=== PATIENT | male | born 1970 | race American Indian/Alaskan Native ===

== ENCOUNTER 2019-02-19 07:23 | Emergency (ER) | payer SELFPAY ==
[2019-02-19] MEDS ORDERED: HYDROcodone/ACETAMINOPHEN 5-325 MG TAB PO ONE (08:46)
--- NOTE | 2019-02-19 08:48 | Emergency Department Report ---
Abscess Boil HPI - HPI Chief Complaint: Skin/Abscess/Foreign Body Stated Complaint: BOIL ON THIGH/SWELLING/PAIN Time Seen by Provider: 02/19/19 07:54 Duration: 2 Days Location: Lower Extremity (left medial thigh) Severity: Mild History: Yes Fever, Yes Pain, Yes Purulent Drainage, No Numbness, No Foreign Body, No Previous History, No Insect Bite HPI: This is a 48-year-old -[place] male who presents to the emergency room with redness, warmth, swelling to left medial thigh. Patient reports an abscess for 2 days which is drained and swelling improved. Patient states after abscess drained he noticed redness that was spreading to the left medial upper thigh that is tender to touch. Patient states he's taken NSAIDs with minimal improvement of pain. Home Medications: Previous Rx's Medication Instructions Recorded Last Taken Type Ibuprofen [Motrin 800 MG tab] 800 mg PO Q8HR PRN #30 tablet 02/19/19 Unknown Rx cephALEXin [Keflex] 500 mg PO Q6HR #28 capsule 02/19/19 Unknown Rx Allergies/Adverse Reactions: Allergies Allergy/AdvReac Type Severity Reaction Status Date / Time No Known Allergies Allergy Unverified 02/19/19 07:26 ED Review of Systems ROS: Stated complaint: BOIL ON THIGH/SWELLING/PAIN Other details as noted in HPI Constitutional: fever. denies: chills Respiratory: denies: cough, shortness of breath, wheezing Cardiovascular: denies: chest pain, palpitations Gastrointestinal: denies: abdominal pain, nausea, diarrhea Skin: lesions (abscess to left medial thigh), change in color (erythematous area to the left upper medial thigh). denies: rash Neurological: denies: headache, weakness, paresthesias Psychiatric: denies: anxiety, depression ED Past Medical Hx - Past Medical History Previous Medical History?: No - Surgical History Past Surgical History?: No - Social History Smoking Status: Never Smoker Substance Use Type: None - Medications Home Medications: Home Medications Medication Instructions Recorded Confirmed Last Taken Type Ibuprofen [Motrin 800 MG tab] 800 mg PO Q8HR PRN #30 tablet 02/19/19 Unknown Rx cephALEXin [Keflex] 500 mg PO Q6HR #28 capsule 02/19/19 Unknown Rx ED Abscess Boil Physical Exam - Exam General: Vital signs noted. No distress. Alert and acting appropriately. Front/Back of Body, Lg (Color): 1 - Half a centimeter nonfluctuant nodule to the left medial proximal femur, surrounding cellulitis 3-4 cm, warmth to touch, TTP, no drainage Size: 1 cm (half a centimeter) Exam: Yes Tenderness, Yes Surrounding Cellulites/Erythema, Yes Normal Neurologic Exam, Yes Normal Circulation, No Fluctuance, No Lymphangitis, No Crepitation, No Heart Murmur ED Course Vital Signs 02/19/19 07:31 Temperature 100 F H Pulse Rate 125 H Respiratory 20 Rate Blood Pressure 147/80 O2 Sat by Pulse 100 Oximetry Vital Signs 02/19/19 02/19/19 07:31 08:54 Temperature 100 F H Pulse Rate 125 H 94 H Respiratory 20 18 Rate Blood Pressure 147/80 O2 Sat by Pulse 100 99 Oximetry Critical care attestation.: If time is entered above; I have spent that time in minutes in the direct care of this critically ill patient, excluding procedure time. ED Medical Decision Making - Medical Decision Making This patient presents with initial presentation of local erythema, warmth, swelling to left proximal medial femur concerning for cellulitis. Sensitivity/pain to light touch around the erythematous area. No lymphangitic spread visible and no fluid pockets or fluctuance concerning for abscess noted. This area is completely drained abscess which at this time does not require I&d. Low concerns for osteomyelitis or DVT. No immune compromise, bullae, pain out of proportion, or rapid progression concerns for necrotizing fasciitis. Erythema outlined. Start Cephalexin and ibuprofen. No evidence of serious bacterial illness requiring admission for IV antibiotics. Nontoxic appearing, VSS. Low risk for treatment failure based on history. Will discharge home with PO antibiotics and return precautions discussed at bedside. ED Disposition Clinical Impression: Cellulitis and abscess of left lower extremity Disposition: TO HOME OR SELFCARE Is pt being admited?: No Condition: Stable Instructions: Cellulitis (ED) Additional Instructions: Complete antibiotics as prescribed. Take pain medication every 8 hours as needed for pain. Monitor redness if spreading follow up with primary care doctor or return to the ER promptly. Follow up with her primary care doctor from the list provided below for wound reevaluation in 3 days. Prescriptions: cephALEXin [Keflex] 500 mg PO Q6HR #28 capsule Ibuprofen [Motrin 800 MG tab] 800 mg PO Q8HR PRN #30 tablet PRN Reason: Pain , Severe (7-10) Referrals: VERONA INGRAM MD [Staff Physician] - 3-5 Days FLORA DUPREE MD [Staff Physician] - 3-5 Days [facility] [Outside] - 3-5 Days [facility] [Outside] - 3-5 Days Forms: Work/School Release Form(ED) Time of Disposition: 09:46
[2019-02-19 10:18] VITALS: BP 140/80
== END 2019-02-19 10:17 | disposition home or self-care (01) ==
LOC: ED 07:23
DX: L02.416 Cutaneous abscess of left lower limb (principal); L03.116 Cellulitis of left lower limb; Z79.899 Other long term (current) drug therapy
CPT/HCPCS: 99282

== ENCOUNTER 2019-02-22 09:10 | Inpatient (IN) | payer OTHER ==
[2019-02-22] MEDS ORDERED: MORPHINE 2 MG/1 ML INJ IV ONE (12:02)
--- NOTE | 2019-02-22 12:03 | Emergency Department Report ---
- General Chief Complaint: Skin/Abscess/Foreign Body Stated Complaint: LFT LEG ABCESS/PAIN Time Seen by Provider: 02/22/19 11:41 Source: patient Mode of arrival: Ambulatory Limitations: No Limitations - History of Present Illness Initial Comments: This is a 48-year-old -[place] male who presents to the emergency room with worsening redness and pain to the left medial thigh. Patient states he was seen in the emergency room 3 days ago was started on antibiotics with no i mprovement of symptoms. Patient states initially he had a small abscess that grew drained 2 left medial thigh. Patient states he is taking antibiotics as prescribed with worsening symptoms. He reports pain currently is 10 out of 10 on pain scale. He denies fever, chills, weakness, numbness or tingling. Onset/Timin -: days(s) Extremity Location: Left: Thigh Place: home Associated Symptoms: pain Treatments Prior to Arrival: NSAIDS, other (antibiotics) - Related Data Previous Rx's Medication Instructions Recorded Last Taken Type Ibuprofen [Motrin 800 MG tab] 800 mg PO Q8HR PRN #30 tablet 02/19/19 02/22/19 08:00 Rx 800 mg cephALEXin [Keflex] 500 mg PO Q6HR #28 capsule 02/19/19 02/22/19 08:00 Rx 500 mg Allergies Allergy/AdvReac Type Severity Reaction Status Date / Time No Known Allergies Allergy Unverified 02/19/19 07:26 ED Review of Systems ROS: Stated complaint: LFT LEG ABCESS/PAIN Other details as noted in HPI Constitutional: denies: chills, fever Respiratory: denies: cough, shortness of breath, wheezing Cardiovascular: denies: chest pain, palpitations Gastrointestinal: denies: abdominal pain, nausea, diarrhea Skin: other (worsening cellulitis left medial thigh). denies: rash Neurological: denies: headache, weakness, paresthesias Psychiatric: denies: anxiety, depression ED Past Medical Hx - Past Medical History Previous Medical History?: No - Surgical History Past Surgical History?: No - Social History Smoking Status: Never Smoker Substance Use Type: None - Medications Home Medications: Home Medications Medication Instructions Recorded Confirmed Last Taken Type Ibuprofen [Motrin 800 MG tab] 800 mg PO Q8HR PRN #30 tablet 02/19/19 02/22/19 08:00 Rx 800 mg cephALEXin [Keflex] 500 mg PO Q6HR #28 capsule 02/19/19 02/22/19 02/22/19 08:00 Rx 500 mg ED Physical Exam - General Limitations: No Limitations General appearance: alert, in no apparent distress - Respiratory Respiratory exam: Present: normal lung sounds bilaterally. Absent: respiratory distress - Cardiovascular Cardiovascular Exam: Present: regular rate, normal rhythm. Absent: systolic murmur, diastolic murmur, rubs, gallop - GI/Abdominal GI/Abdominal exam: Present: soft, normal bowel sounds - exam: Present: normal inspection, circumcision, other (no signs of lyndsey). Absent: testicular tenderness, urethral discharge, scrotal swelling, vertical testicular lie External exam: Present: normal external exam - Extremities Exam Extremities exam: Present: normal capillary refill, other (swelling to left thigh) - Neurological Exam Neurological exam: Present: alert, oriented X3 - Expanded Neurological Exam Expanded Patient oriented to: Present: person Sensory exam: Lower Extremity Light Touch: Abnormal Left, Lower Extremity Pin Prick: Abnormal Left, Lower Extremity Temperature: Abnormal Left, LE 2 Point Discrimination: Normal Motor strength exam: RLE: 5, LLE: 5 DTR: knee (L): 4+, ankle (L): 4+ Best Eye Response ([place]): (4) open spontaneously Best Motor Response ([place]): (6) obeys commands Best Verbal Response (Arturo): (5) oriented Arturo Total: 15 - Psychiatric Psychiatric exam: Present: normal affect, normal mood - Skin Skin exam: Present: warm, dry, intact, erythema (erythematous area from proximal to distal medial femur, warm, TTP, 1 cm annular scabed area center erythema, limited range of motion). Absent: normal color, rash ED Course Vital Signs 02/22/19 02/22/19 09:42 14:22 Temperature 98.1 F Pulse Rate 107 H 100 H Respiratory 20 16 Rate Blood Pressure 101/67 106/70 [Right] O2 Sat by Pulse 97 98 Oximetry - Reevaluation(s) Reevaluation #1: 02/22/19 14:21 Consulted Hospitalist who agreed to admit for acute renal failure. ED Medical Decision Making - Lab Data Result diagrams: 02/22/19 12:31 02/22/19 12:31 Lab Results 02/22/19 02/22/19 Range/Units 12:31 12:31 WBC 23.6 H (4.5-11.0) K/mm3 RBC 4.37 (3.65-5.03) M/mm3 Hgb 12.5 (11.8-15.2) gm/dl Hct 37.7 (35.5-45.6) % MCV 86 (84-94) fl MCH 29 (28-32) pg MCHC 33 (32-34) % RDW 14.0 (13.2-15.2) % Plt Count 405 (140-440) K/mm3 Add Manual Diff Complete Total Counted 100 Seg Neuts % (Manual) 79.0 H (40.0-70.0) % Band Neutrophils % 8.0 % Lymphocytes % (Manual) 7.0 L (13.4-35.0) % Reactive Lymphs % (Man) 2.0 % Monocytes % (Manual) 4.0 (0.0-7.3) % Eosinophils % (Manual) 0 (0.0-4.3) % Basophils % (Manual) 0 (0.0-1.8) % Metamyelocytes % 0 % Myelocytes % 0 % Promyelocytes % 0 % Blast Cells % 0 % Nucleated RBC % Not Reportable Seg Neutrophils # Man 18.6 H (1.8-7.7) K/mm3 Band Neutrophils # 1.9 K/mm3 Lymphocytes # (Manual) 1.7 (1.2-5.4) K/mm3 Abs React Lymphs (Man) 0.5 K/mm3 Monocytes # (Manual) 0.9 H (0.0-0.8) K/mm3 Eosinophils # (Manual) 0.0 (0.0-0.4) K/mm3 Basophils # (Manual) 0.0 (0.0-0.1) K/mm3 Metamyelocytes # 0.0 K/mm3 Myelocytes # 0.0 K/mm3 Promyelocytes # 0.0 K/mm3 Blast Cells # 0.0 K/mm3 WBC Morphology Not Reportable Hypersegmented Neuts Not Reportable Hyposegmented Neuts Not Reportable Hypogranular Neuts Not Reportable Smudge Cells Not Reportable Toxic Granulation Not Reportable Toxic Vacuolation Not Reportable Dohle Bodies Not Reportable Pelger-Huet Anomaly Not Reportable Rani Rods Not Reportable Platelet Estimate Consistent w auto Clumped Platelets Not Reportable Plt Clumps, EDTA Not Reportable Large Platelets Not Reportable Giant Platelets Not Reportable Platelet Satelliting Not Reportable Plt Morphology Comment Not Reportable RBC Morphology Normal Dimorphic RBCs Not Reportable Polychromasia Not Reportable Hypochromasia Not Reportable Poikilocytosis Not Reportable Anisocytosis Not Reportable Microcytosis Not Reportable Macrocytosis Not Reportable Spherocytes Not Reportable Pappenheimer Bodies Not Reportable Sickle Cells Not Reportable Target Cells Not Reportable Tear Drop Cells Not Reportable Ovalocytes Not Reportable Helmet Cells Not Reportable [place] Bodies Not Reportable [place] Rings Not Reportable Chriss Cells Not Reportable Bite Cells Not Reportable Crenated Cell Not Reportable Elliptocytes Not Reportable Acanthocytes (Spur) Not Reportable Rouleaux Not Reportable Hemoglobin C Crystals Not Reportable Schistocytes Not Reportable Malaria parasites Not Reportable Elmer Bodies Not Reportable Hem Pathologist Commnt No Sodium 134 L (137-145) mmol/L Potassium 3.9 (3.6-5.0) mmol/L Chloride 94.4 L (98-107) mmol/L Carbon Dioxide 20 L (22-30) mmol/L Anion Gap 24 mmol/L BUN 66 H (9-20) mg/dL Creatinine 4.6 H (0.8-1.5) mg/dL Estimated GFR 17 ml/min BUN/Creatinine Ratio 14 % Glucose 128 H (75-100) mg/dL Calcium 9.2 (8.4-10.2) mg/dL Total Bilirubin 0.70 (0.1-1.2) mg/dL AST 25 (5-40) units/L ALT 22 (7-56) units/L Alkaline Phosphatase 116 (35-129) units/L Total Protein 8.1 (6.3-8.2) g/dL Albumin 2.9 L (3.9-5) g/dL Albumin/Globulin Ratio 0.6 % - Medical Decision Making This is a 48-year-old -[place] male who presents to the emergency room with worsening cellulitis and pain to left lower extremity. There is swelling and erythema from below left scrotum and entire left medial thigh. No signs of lyndsey. Decreased sensation of the medial left thigh, limited ROM 2/2 pain. Labs obtained and CT of the left lower extremity pending. Patient is slightly tachycardic, hypotensive, white count 23.6, and in acute renal failure. Consulted attending Dr. Kumar. Placed on sepsis protocol, given analgesics, and IVF. Consulted hospitalist Dr. Tomlinson for admission. Dr. Reynolds agreed to admit patient for acute renal failure and sepsis. Critical care attestation.: If time is entered above; I have spent that time in minutes in the direct care of this critically ill patient, excluding procedure time. ED Disposition Clinical Impression: Cellulitis of thigh Sepsis Qualifiers: Sepsis type: sepsis due to unspecified organism Sepsis acute organ dysfunction status: with acute organ dysfunction Severe sepsis acute organ dysfunction type: acute renal failure Acute renal failure type: unspecified Severe sepsis shock status: with septic shock Qualified Code(s): A41.9 - Sepsis, unspecified organism Acute renal failure Qualifiers: Acute renal failure type: unspecified Qualified Code(s): N17.9 - Acute kidney failure, unspecified Disposition: 09 OP ADMIT IP TO THIS HOSP Is pt being admited?: Yes Condition: Stable
[2019-02-22 13:01] LABS: Hematocrit 37.7 % (35.5-45.6); Hemoglobin 12.5 gm/dl (11.8-15.2); Mean Corpuscular HGB Conc 33 % (32-34); Mean Corpuscular Volume 86 fl (84-94); Platelet Count 405 K/mm3 (140-440); Red Blood Count 4.37 M/mm3 (3.65-5.03)
[2019-02-22 13:26] LABS: Albumin 2.9 g/dL (3.9-5); Calcium 9.2 mg/dL (8.4-10.2)
[2019-02-22] MEDS ORDERED: SODIUM CHLORIDE 0.9% 1000 ML 1,000 ML IV ONE (13:59)
[2019-02-22] MEDS ORDERED: SODIUM CHLORIDE 0.9% 1000 ML IV SOLN IV ONE (14:24)
[2019-02-22] MEDS ORDERED: ACETAMINOPHEN 325 MG TAB PO PRN (14:24)
[2019-02-22] MEDS ORDERED: VANCOMYCIN 1,750 MG in SODIUM CHLORIDE 0.9% 500 ML 500 ML IV ONE ×2 (14:24→19:00)
--- NOTE | 2019-02-22 14:29 | History and Physical Report ---
History of Present Illness Date of examination: 02/22/19 Date of admission: 02/22/19 Chief complaint: left thigh pain and swelling History of present illness: Patient is a 48-year-old male with no significant past medical history according to him who presents to the ED with complaint of redness and pain in the left medial thigh. He believes this may have started as a result of having some bites he was initially seen in the ED 3 days ago and was discharged on antib iotics with no improvement of symptoms. The patient reports that instead the area has become more indurated with increased redness warmt. He requires a cane to ambulate secondary to the severe pain and this is constant. He rates the pain a 10/10 intensity. He denies any nausea vomiting or diarrhea he denies any fever although reports chills Past History Past Medical History: No medical history Past Surgical History: Other (recent i/d) Social history: no significant social history, full code Family history: no significant family history Medications and Allergies Allergies Allergy/AdvReac Type Severity Reaction Status Date / Time No Known Allergies Allergy Unverified 02/19/19 07:26 Home Medications Medication Instructions Recorded Confirmed Last Taken Type Ibuprofen [Motrin 800 MG tab] 800 mg PO Q8HR PRN #30 tablet 02/19/19 02/22/19 08:00 Rx 800 mg cephALEXin [Keflex] 500 mg PO Q6HR #28 capsule 02/19/19 02/22/19 02/22/19 08:00 Rx 500 mg Active Meds: Active Medications Acetaminophen (Tylenol) 650 mg PO Q6H PRN PRN Reason: Pain, Mild (1-3) Sodium Chloride (Nacl 0.9% 1000 Ml) 1,000 mls @ 999 mls/hr IV BOLUS ONE Stop: 02/22/19 14:59 Last Admin: 02/22/19 14:16 Dose: 999 mls/hr Documented by: Vancomycin HCl 1,750 mg/ (Sodium Chloride) 535 mls @ 333 mls/hr IV ONCE ONE; Protocol Stop: 02/22/19 16:00 Cefepime HCl (Cefepime/Ns 2 Gm/100 Ml) 2 gm in 100 mls @ 200 mls/hr IV Q8HR RICA; Protocol Sodium Chloride (Nacl 0.9% 1000 Ml) 2,720 ml 30 ml/kg (2720 ml) IV ONCE ONE Stop: 02/22/19 14:25 Review of Systems All systems: negative Integumentary: rash, redness Neurological: parathesias Exam - Physical Exam Narrative exam: VITAL SIGNS: Reviewed. GENERAL: The patient appears normally developed, Vital signs as documented. HEAD: No signs of head trauma. EYES: Pupils are equal. Extraocular motions intact. EARS: Hearing grossly intact. MOUTH: Oropharynx is normal. NECK: No adenopathy, no JVD. CHEST: Chest with clear breath sounds bilaterally. No wheezes, rales, or rhonchi. CARDIAC: Regular rate and rhythm. S1 and S2, without murmurs, gallops, or rubs. VASCULAR: No Edema. Peripheral pulses normal and equal in all extremities. ABDOMEN: Soft, non tender and non distended. No rebound or guarding, and no masses palpated. Bowel Sounds normal. MUSCULOSKELETAL: Good range of motion of all major joints. Extremities without clubbing, cyanosis or edema. NEUROLOGIC EXAM: Alert and oriented x 3 No focal sensory or strength deficits. Speech normal. Follows commands. PSYCHIATRIC: Mood normal. SKIN: detial exam as documented in skin assessment, left thigh with large indurated area and a punctate lesion in the medial aspect of the thigh extending all the way to the groin. Warm to the touch. Very tender. No evidence of compartment syndrome noted. - Constitutional Vitals: Temp Pulse Resp BP Pulse Ox 98.1 F 100 H 16 106/70 98 02/22/19 09:42 02/22/19 14:22 02/22/19 14:22 02/22/19 14:22 02/22/19 14:22 Results - Labs CBC & Chem 7: 02/22/19 12:31 02/23/19 13:54 Labs: Laboratory Last Values WBC 23.6 K/mm3 (4.5-11.0) H 02/22/19 12:31 RBC 4.37 M/mm3 (3.65-5.03) 02/22/19 12:31 Hgb 12.5 gm/dl (11.8-15.2) 02/22/19 12:31 Hct 37.7 % (35.5-45.6) 02/22/19 12:31 MCV 86 fl (84-94) 02/22/19 12:31 MCH 29 pg (28-32) 02/22/19 12:31 MCHC 33 % (32-34) 02/22/19 12:31 RDW 14.0 % (13.2-15.2) 02/22/19 12:31 Plt Count 405 K/mm3 (140-440) 02/22/19 12:31 Sodium 134 mmol/L (137-145) L 02/22/19 12:31 Potassium 3.9 mmol/L (3.6-5.0) 02/22/19 12:31 Chloride 94.4 mmol/L (98-107) L 02/22/19 12:31 Carbon Dioxide 20 mmol/L (22-30) L 02/22/19 12:31 Anion Gap 24 mmol/L 02/22/19 12:31 BUN 66 mg/dL (9-20) H 02/22/19 12:31 Creatinine 4.6 mg/dL (0.8-1.5) H 02/22/19 12:31 Estimated GFR 17 ml/min 02/22/19 12:31 BUN/Creatinine Ratio 14 % 02/22/19 12:31 Glucose 128 mg/dL (75-100) H 02/22/19 12:31 Calcium 9.2 mg/dL (8.4-10.2) 02/22/19 12:31 Total Bilirubin 0.70 mg/dL (0.1-1.2) 02/22/19 12:31 AST 25 units/L (5-40) 02/22/19 12:31 ALT 22 units/L (7-56) 02/22/19 12:31 Alkaline Phosphatase 116 units/L (35-129) 02/22/19 12:31 Total Protein 8.1 g/dL (6.3-8.2) 02/22/19 12:31 Albumin 2.9 g/dL (3.9-5) L 02/22/19 12:31 Albumin/Globulin Ratio 0.6 % 02/22/19 12:31 Assessment and Plan Assessment and plan: Patient is a 48-year-old male with no significant past medical history according to him who presents to the ED with complaint of redness and pain in the left medial thigh. He believes this may have started as a result of having some bites he was initially seen in the ED 3 days ago and was discharged on antibiotics with no improvement of symptoms. The patient reports that instead the area has become more indurated with increased redness warmt. He requires a cane to ambulate secondary to the severe pain and this is constant. He rates the pain a 10/10 intensity. He denies any nausea vomiting or diarrhea he denies any fever although reports chills CT of the lower extremity shows subcutaneous edema. No clear abscess noted. Left thigh cellulitis/abscess Acute kidney injury likely secondary to vasomotor nephropathy could also have an underlying CKD. Hypertension Metabolic acidosis Plan We will admit patient to inpatient status for underlining severe cellulitis and systemic inflammatory response syndrome Start patient on vancomycin and consult infectious disease specialist We will also obtain nephrology consult Obtain renal ultrasound Monitor and replace electrolytes as needed Pain control DVT and GI prophylaxis Advance Directives: Yes Plan of care discussed with patient/family: Yes
[2019-02-22 14:34] LABS: Band Neutrophils # (Manual) 1.9 K/mm3; Basophils % (Manual) 0 % (0.0-1.8); Eosinophils % (Manual) 0 % (0.0-4.3); Total Cells Counted 100
[2019-02-22 14:35] LABS: Platelet Estimate Consistent w Auto; RBC Morphology Normal
[2019-02-22] MEDS ORDERED: VANCOMYCIN PHARMACY TO DOSE IV SCH (15:00)
--- NOTE | 2019-02-22 15:07 | Cat Scan Report ---
CT LOWER EXTREMITY LEFT WITHOUT CONTRAST HISTORY: Left femur, rule out abscess TECHNIQUE: Helical CT was performed from the level of the mid sacrum to the mid left thigh. Sagittal and coronal reformatted images. All CT scans at this location are performed using CT dose reduction f or ALARA by means of automated exposure control. COMPARISON: None. FINDINGS: There is nonspecific subcutaneous edema in the anterior and medial left thigh. A small amount of flui d is seen dissecting along the fascial planes of the medial thigh. No discrete soft tissue abscess is appreciated on the given images. No soft tissue gas or foreign body. The visualized osseous structur es are unremarkable. No evidence for osteomyelitis. IMPRESSION: Nonspecific subcutaneous edema in the anterior medial left thigh which probably represents a cellulit is. No abscess is visualized on noncontrast CT. Signer Name: Giuseppe Burkett Jr, MD Signed: 02/22/2019 3:03 PM Workstation Name: [id number]
--- NOTE | 2019-02-22 15:36 | Progress Note ---
Hospitalist Physical - Constitutional Vitals: Temp Pulse Resp BP Pulse Ox 98.1 F 100 H 16 106/70 98 02/22/19 09:42 02/22/19 14:22 02/22/19 14:22 02/22/19 14:22 02/22/19 14:22 Results - Labs CBC & Chem 7: 02/22/19 12:31 02/22/19 12:31 Labs: Laboratory Last Values WBC 23.6 K/mm3 (4.5-11.0) H 02/22/19 12:31 RBC 4.37 M/mm3 (3.65-5.03) 02/22/19 12:31 Hgb 12.5 gm/dl (11.8-15.2) 02/22/19 12:31 Hct 37.7 % (35.5-45.6) 02/22/19 12:31 MCV 86 fl (84-94) 02/22/19 12:31 MCH 29 pg (28-32) 02/22/19 12:31 MCHC 33 % (32-34) 02/22/19 12:31 RDW 14.0 % (13.2-15.2) 02/22/19 12:31 Plt Count 405 K/mm3 (140-440) 02/22/19 12:31 Add Manual Diff Complete 02/22/19 12:31 Total Counted 100 02/22/19 12:31 Seg Neuts % (Manual) 79.0 % (40.0-70.0) H 02/22/19 12:31 Band Neutrophils % 8.0 % 02/22/19 12:31 Lymphocytes % (Manual) 7.0 % (13.4-35.0) L 02/22/19 12:31 Reactive Lymphs % (Man) 2.0 % 02/22/19 12:31 Monocytes % (Manual) 4.0 % (0.0-7.3) 02/22/19 12:31 Eosinophils % (Manual) 0 % (0.0-4.3) 02/22/19 12:31 Basophils % (Manual) 0 % (0.0-1.8) 02/22/19 12:31 Metamyelocytes % 0 % 02/22/19 12:31 Myelocytes % 0 % 02/22/19 12:31 Promyelocytes % 0 % 02/22/19 12:31 Blast Cells % 0 % 02/22/19 12:31 Nucleated RBC % Not Reportable 02/22/19 12:31 Seg Neutrophils # Man 18.6 K/mm3 (1.8-7.7) H 02/22/19 12:31 Band Neutrophils # 1.9 K/mm3 02/22/19 12:31 Lymphocytes # (Manual) 1.7 K/mm3 (1.2-5.4) 02/22/19 12:31 Abs React Lymphs (Man) 0.5 K/mm3 02/22/19 12:31 Monocytes # (Manual) 0.9 K/mm3 (0.0-0.8) H 02/22/19 12:31 Eosinophils # (Manual) 0.0 K/mm3 (0.0-0.4) 02/22/19 12:31 Basophils # (Manual) 0.0 K/mm3 (0.0-0.1) 02/22/19 12:31 Metamyelocytes # 0.0 K/mm3 02/22/19 12:31 Myelocytes # 0.0 K/mm3 02/22/19 12:31 Promyelocytes # 0.0 K/mm3 02/22/19 12:31 Blast Cells # 0.0 K/mm3 02/22/19 12:31 WBC Morphology Not Reportable 02/22/19 12:31 Hypersegmented Neuts Not Reportable 02/22/19 12:31 Hyposegmented Neuts Not Reportable 02/22/19 12:31 Hypogranular Neuts Not Reportable 02/22/19 12:31 Smudge Cells Not Reportable 02/22/19 12:31 Toxic Granulation Not Reportable 02/22/19 12:31 Toxic Vacuolation Not Reportable 02/22/19 12:31 Dohle Bodies Not Reportable 02/22/19 12:31 Pelger-Huet Anomaly Not Reportable 02/22/19 12:31 Rani Rods Not Reportable 02/22/19 12:31 Platelet Estimate Consistent w auto 02/22/19 12:31 Clumped Platelets Not Reportable 02/22/19 12:31 Plt Clumps, EDTA Not Reportable 02/22/19 12:31 Large Platelets Not Reportable 02/22/19 12:31 Giant Platelets Not Reportable 02/22/19 12:31 Platelet Satelliting Not Reportable 02/22/19 12:31 Plt Morphology Comment Not Reportable 02/22/19 12:31 RBC Morphology Normal 02/22/19 12:31 Dimorphic RBCs Not Reportable 02/22/19 12:31 Polychromasia Not Reportable 02/22/19 12:31 Hypochromasia Not Reportable 02/22/19 12:31 Poikilocytosis Not Reportable 02/22/19 12:31 Anisocytosis Not Reportable 02/22/19 12:31 Microcytosis Not Reportable 02/22/19 12:31 Macrocytosis Not Reportable 02/22/19 12:31 Spherocytes Not Reportable 02/22/19 12:31 Pappenheimer Bodies Not Reportable 02/22/19 12:31 Sickle Cells Not Reportable 02/22/19 12:31 Target Cells Not Reportable 02/22/19 12:31 Tear Drop Cells Not Reportable 02/22/19 12:31 Ovalocytes Not Reportable 02/22/19 12:31 Helmet Cells Not Reportable 02/22/19 12:31 Dexter-Everson Bodies Not Reportable 02/22/19 12:31 [place] Rings Not Reportable 02/22/19 12:31 Chriss Cells Not Reportable 02/22/19 12:31 Bite Cells Not Reportable 02/22/19 12:31 Crenated Cell Not Reportable 02/22/19 12:31 Elliptocytes Not Reportable 02/22/19 12:31 Acanthocytes (Spur) Not Reportable 02/22/19 12:31 Rouleaux Not Reportable 02/22/19 12:31 Hemoglobin C Crystals Not Reportable 02/22/19 12:31 Schistocytes Not Reportable 02/22/19 12:31 Malaria parasites Not Reportable 02/22/19 12:31 Elmer Bodies Not Reportable 02/22/19 12:31 Hem Pathologist Commnt No 02/22/19 12:31 Sodium 134 mmol/L (137-145) L 02/22/19 12:31 Potassium 3.9 mmol/L (3.6-5.0) 02/22/19 12:31 Chloride 94.4 mmol/L (98-107) L 02/22/19 12:31 Carbon Dioxide 20 mmol/L (22-30) L 02/22/19 12:31 Anion Gap 24 mmol/L 02/22/19 12:31 BUN 66 mg/dL (9-20) H 02/22/19 12:31 Creatinine 4.6 mg/dL (0.8-1.5) H 02/22/19 12:31 Estimated GFR 17 ml/min 02/22/19 12:31 BUN/Creatinine Ratio 14 % 02/22/19 12:31 Glucose 128 mg/dL (75-100) H 02/22/19 12:31 Lactic Acid 1.00 mmol/L (0.7-2.0) 02/22/19 14:34 Calcium 9.2 mg/dL (8.4-10.2) 02/22/19 12:31 Total Bilirubin 0.70 mg/dL (0.1-1.2) 02/22/19 12:31 AST 25 units/L (5-40) 02/22/19 12:31 ALT 22 units/L (7-56) 02/22/19 12:31 Alkaline Phosphatase 116 units/L (35-129) 02/22/19 12:31 Total Protein 8.1 g/dL (6.3-8.2) 02/22/19 12:31 Albumin 2.9 g/dL (3.9-5) L 02/22/19 12:31 Albumin/Globulin Ratio 0.6 % 02/22/19 12:31 Blood Type O POSITIVE 02/22/19 14:34 Active Medications - Current Medications Current Medications: Generic Name Dose Route Start Last Admin Trade Name Freq PRN Reason Stop Dose Admin Acetaminophen 650 mg 02/22/19 14:24 Tylenol PO Q6H PRN Pain, Mild (1-3) Cefepime HCl 1 gm in 100 mls @ 200 mls/hr 02/22/19 16:00 Cefepime/Ns 1 Gm/100 Ml IV Q12H RICA Vancomycin HCl 1,750 mg/ 535 mls @ 333.333 mls/hr 02/22/19 19:00 Sodium Chloride IV 02/22/19 20:36 ONCE ONE Sodium Chloride 1,000 mls @ 150 mls/hr 02/22/19 15:30 Nacl 0.9% 1000 Ml IV DIRECT RICA Morphine Sulfate 2 mg 02/22/19 15:25 Morphine IV Q4H PRN Pain, Moderate (4-6)
--- NOTE | 2019-02-22 15:51 | Consultation ---
History of Present Illness - Reason for Consult Consult date: 02/22/19 - History of Present Illness 48 yo M PMHx Dm2 presented to the hospital complaining of worsening redness and pain to the left medial thigh. He had recently been to the ER 3 days prior to admission and was seen for similar omplaints. He notes that prior to comin to the ER he had an abscess on the thigh which spontaneously drained, however the redness and pain got worse after the drainage. At the ER he received a prescrip tion for Keflex which did not alleviate his symptoms. Afebrile, tachycardic. White count 24, no cultures as yet obtained. Currently on vancomycin and cefepime. Imaging personally reviewed: None Review of Systems: Bold if positive, otherwise negative General: fevers, chills, rigors HEENT: visual disturbance, diplopia, eye pain Respiratory: cough, sputum, hemoptysis, shortness of breath Cardiovascular: chest pain, syncope Gastrointestinal: nausea, vomiting, diarrhea, abdominal pain Genitourinary: dysuria, hematuria, flank pain Musculoskeletal: neck pain, back pain, joint pain, edema Neurologic: headaches, seizures Hematologic: easy bruising or bleeding Endocrine: night sweats, acute weight loss Skin: rash, jaundice, redness Psychiatric: suicidal, homicidal ideation Past History Past Medical History: diabetes Past Surgical History: No surgical history Social history: no significant social history Family history: no significant family history Medications and Allergies Allergies Allergy/AdvReac Type Severity Reaction Status Date / Time No Known Allergies Allergy Unverified 02/19/19 07:26 Home Medications Medication Instructions Recorded Confirmed Last Taken Type Ibuprofen [Motrin 800 MG tab] 800 mg PO Q8HR PRN #30 tablet 02/19/19 02/22/19 08:00 Rx 800 mg cephALEXin [Keflex] 500 mg PO Q6HR #28 capsule 02/19/19 02/22/19 02/22/19 08:00 Rx 500 mg Active Meds: Active Medications Acetaminophen (Tylenol) 650 mg PO Q6H PRN PRN Reason: Pain, Mild (1-3) Cefepime HCl (Cefepime/Ns 1 Gm/100 Ml) 1 gm in 100 mls @ 200 mls/hr IV Q12H RICA Vancomycin HCl 1,750 mg/ (Sodium Chloride) 535 mls @ 333.333 mls/hr IV ONCE ONE Stop: 02/22/19 20:36 Sodium Chloride (Nacl 0.9% 1000 Ml) 1,000 mls @ 150 mls/hr IV DIRECT RICA Morphine Sulfate (Morphine) 2 mg IV Q4H PRN PRN Reason: Pain, Moderate (4-6) Physical Examination - Physical Exam Narrative exam: Constitutional: Alert, cooperative. No acute distress Head, Ears, Nose: Normocephalic, atraumatic. External ears, nose normal Eyes: Conjunctivae/corneas clear. No icterus. No ptosis. Neck: Supple, no meningeal signs Oral: dentition fair, no thrush Cardiovascular: S1, S2 normal. Respiratory: Good air entry, clear to auscultation bilaterally GI: Soft, non-tender; bowel sounds normal. No peritoneal signs. Musculoskeletal: No pedal edema, no cyanosis. Redness and tenderness of L medial thigh Skin: No rash or abscess Hem/Lymphatic: No palpable cervical or supraclavicular nodes. No lymphangitis Psych: Mood ok. Affect normal Neurological: Awake, alert, oriented. No gross abnormality - Constitutional Vitals: Vital Signs Temp Pulse Resp BP Pulse Ox 98.1 F 100 H 16 106/70 98 02/22/19 09:42 02/22/19 14:22 02/22/19 14:22 02/22/19 14:22 02/22/19 14:22 Temperature -Last 24 Hours Temperature 98.1 F Results - Labs CBC & Chem 7: 02/22/19 12:31 02/22/19 12:31 Labs: Abnormal lab results 02/22/19 02/22/19 Range/Units 12:31 12:31 WBC 23.6 H (4.5-11.0) K/mm3 Seg Neuts % (Manual) 79.0 H (40.0-70.0) % Lymphocytes % (Manual) 7.0 L (13.4-35.0) % Seg Neutrophils # Man 18.6 H (1.8-7.7) K/mm3 Monocytes # (Manual) 0.9 H (0.0-0.8) K/mm3 Sodium 134 L (137-145) mmol/L Chloride 94.4 L (98-107) mmol/L Carbon Dioxide 20 L (22-30) mmol/L BUN 66 H (9-20) mg/dL Creatinine 4.6 H (0.8-1.5) mg/dL Glucose 128 H (75-100) mg/dL Albumin 2.9 L (3.9-5) g/dL Assessment and Plan Cultures: None A/P: 48 yo M PMHx DM2 presented to the hospital with cellulitis 1. Acute sepsis - present with tachycardia and leukocytosis, secondary to cellulitis 2. Cellulitis - was given Keflex as outpatient, which is a reasonable empiric therapy. Possible MRSA given non-response. Continue vancomycin. Ok to de- escalate cefepime to ceftriaxone. Doubt Pseudomonas involvement. 3. DM2 - tight glycemic control for best wound healing 4. CKD vs Vitaly - unclear baseline, decreased GFR. renally dose antibiotics as appropriate. Recs: - stopped cefepime - started ceftriaxone 2g q24h - continue vancomycin dosed per pharmacy, goal trough 10-20. Thank you for the consult, we will continue to follow. MD [facility] ([facility]) M: [phone] O: [phone] F: [phone]
[2019-02-22] MEDS ORDERED: CEFEPIME/NS 1 GM/100 ML 1 GM/100 ML BAG IV SCH (16:00)
--- NOTE | 2019-02-22 17:06 | Vascular Lab Report ---
DUPLEX DOPPLER LOWER EXTREMITY VEINS, BILATERAL INDICATION: Left thigh pain and swelling. TECHNIQUE: Duplex doppler imaging was performed through the veins of both lower extremities using venous aleksandar maximus and other maneuvers. COMPARISON: None available. FINDINGS: Right Common femoral vein: Negative. Right Superficial femoral vein: Negative. Right Popliteal vein: Negative. Right Calf veins: Negative. Left Common femoral vein: Negative. Left Superficial femoral vein: Negative. Left Popliteal vein: Negative. Left Calf veins: Negative. Additional findings: None. IMPRESSION: 1. No sonographic evidence for DVT in either lower extremity. Signer Name: Cecil Dumont MD Signed: 02/22/2019 5:01 PM Workstation Name: [id number]
[2019-02-22] MEDS: cefTRIAXone/NS 2 GM/100 ML 2 GM/100 ML BAG IV SCH (17:46)
[2019-02-22 19:14] LABS: Bacteria,Urine 1+ /HPF (Negative); Bilirubin,Urine NEG (Negative); Blood,Urine MOD (Negative); Color,Urine Yellow (Yellow); Mucus,Urine FEW /HPF
[2019-02-22] MEDS: MORPHINE 2 MG/1 ML INJ IV PRN (19:16)
[2019-02-22] MEDS ORDERED: CEFEPIME/NS 2 GM/100 ML 2 GM/100 ML BAG IV SCH (22:00)
--- NOTE | 2019-02-22 23:02 | Consultation ---
History of Present Illness - Reason for Consult Consult date: 02/22/19 acute renal failure - History of Present Illness This is a 48-year-old male with no significant past medical history who presents to the ED with pain in the left medial thigh. He was put on Keflex and NSAIDs, but symptoms persisted. He developed nausea and vomiting briefly from pain; poor po intake noted. Found to have GHAZALA with creatinine 4.4 on admission. He denies any known history of renal dysfunction and has never seen a sas bi developer in the past. He is currently only complaining of pain in left thigh with drainage. No dyspnea, no abnormal urination. Past History Past Medical History: No medical history Past Surgical History: Other (recent i/d) Social history: no significant social history, full code Family history: no significant family history Medications and Allergies Allergies Allergy/AdvReac Type Severity Reaction Status Date / Time No Known Allergies Allergy Unverified 02/19/19 07:26 Home Medications Medication Instructions Recorded Confirmed Last Taken Type Ibuprofen [Motrin 800 MG tab] 800 mg PO Q8HR PRN #30 tablet 02/19/19 02/22/19 08:00 Rx 800 mg cephALEXin [Keflex] 500 mg PO Q6HR #28 capsule 02/19/19 02/22/19 02/22/19 08:00 Rx 500 mg Active Meds: Active Medications Acetaminophen (Tylenol) 650 mg PO Q6H PRN PRN Reason: Pain, Mild (1-3) Sodium Chloride (Nacl 0.9% 1000 Ml) 1,000 mls @ 150 mls/hr IV DIRECT RICA Ceftriaxone Sodium (Rocephin/Ns 2 Gm/100 Ml) 2 gm in 100 mls @ 200 mls/hr IV Q24HR RICA; Protocol Last Admin: 02/22/19 17:46 Dose: 200 mls/hr Documented by: Morphine Sulfate (Morphine) 2 mg IV Q4H PRN PRN Reason: Pain, Moderate (4-6) Last Admin: 02/22/19 19:16 Dose: 2 mg Documented by: Review of Systems Constitutional: no weight loss, no weight gain Ears, nose, mouth and throat: no ear pain Cardiovascular: no chest pain, no orthopnea, no palpitations Respiratory: no cough, no hemoptysis, no shortness of breath, no dyspnea on exertion, no congestion Gastrointestinal: nausea, vomiting, no abdominal pain, no diarrhea, no constipation Genitourinary Male: no dysuria, no hematuria, no urinary frequency Musculoskeletal: no neck stiffness, no neck pain Integumentary: no rash Neurological: no headaches, no migraines Exam - Vital Signs Vital signs: Vital Signs Temp Pulse Resp BP Pulse Ox 98.1 F 107 H 20 101/67 97 02/22/19 09:42 02/22/19 09:42 02/22/19 09:42 02/22/19 09:42 02/22/19 09:42 - General Appearance General appearance: well-developed, well-nourished, appears stated age EENT: ATNC, PERRL Neck: Present: neck supple, trachea midline Respiratory: Clear to Ascultation Heart: regular, normal heart rate Gastrointestinal: Present: normoactive bowel sounds Integumentary: no rash, warm and dry, other (left thigh swelling/drainage noted) Neurologic: no focal deficit, no asterixis, alert and oriented x3, CN 3-12 intact Psychiatric: mood/affect appropriate Results - Lab Results 02/22/19 12:31 02/22/19 12:31 Most recent lab results Calcium 9.2 mg/dL (8.4-10.2) 02/22/19 12:31 Assessment and Plan # GHAZALA: creatinine 4.4 on admission; suspect GHAZALA in setting of dehydration/pre renal injury and NSAID use. Urinalysis reviewed, does have some blood/WBCs. Imaging without acute obstruction. Do suspect that he may have some CKD given appearance of kidneys on ultrasound with episodes of elevated BP. - for now, IVF prn and encourage po hydration - avoid nephrotoxins - renally dose meds - no indication for renal replacement therapy currently - consider biopsy and serologic workup if no improvement - daily labs # Acidosis: mild, likely in setting of GHAZALA # HTN: BP reasonable off meds # Cellulitis: appreciate ID Thank you for this consult, we will continue to follow with you.
[2019-02-23] MEDS: SODIUM CHLORIDE 0.9% 1000 ML 1,000 ML IV SCH ×2 (05:43→13:57)
[2019-02-23] MEDS: cefTRIAXone/NS 2 GM/100 ML 2 GM/100 ML BAG IV SCH (09:21)
[2019-02-23] MEDS ORDERED: VANCOMYCIN PHARMACY TO DOSE IV SCH (11:00)
--- NOTE | 2019-02-23 12:01 | Ultrasound Report ---
ULTRASOUND RENAL INDICATION / CLINICAL INFORMATION: Acute kidney injury. COMPARISON: None available. FINDINGS: RIGHT KIDNEY: Length = 12.8 cm. [normal > 9 cm] - Parenchymal Thickness = 0.4 cm. [normal > 1.5 cm] - Echogenicity: Increased - Hydronephrosis: None. - Cyst or mass: No significant abnormality. - Stones: None seen. LEFT KIDNEY: Length = 11.2 cm. [normal > 9 cm] - Parenchymal Thickness = 1.7 cm. [normal > 1.5 cm] - Echogenicity: Increased - Hydronephrosis: None. - Cyst or mass: No significant abnormality. - Stones: None seen. URINARY BLADDER: No significant abnormality. FREE FLUID: None. ADDITIONAL FINDINGS: None. IMPRESSION: Nonspecific renal parenchymal disease. No focal renal lesion or hydronephrosis. Signer Name: Giuseppe Burkett Jr, MD Signed: 02/23/2019 11:57 AM Workstation Name: [id number]
[2019-02-23] MEDS: MORPHINE 2 MG/1 ML INJ IV PRN ×2 (12:34→22:04)
--- NOTE | 2019-02-23 13:36 | Progress Note ---
Assessment and Plan # GHAZALA: creatinine 4.6 on admission; suspect GHAZALA in setting of dehydration/pre renal injury and NSAID use. Urinalysis reviewed, does have some blood/WBCs. Imaging without acute obstruction. Do suspect that he may have some CKD given appearance of kidneys on ultrasound with episodes of elevated BP. No labs today - for now, IVF prn and encourage po hydration. Checking labs now, if creatinine downtrending, can wean off IVF - avoid nephrotoxins - renally dose meds - no indication for renal replacement therapy currently - consider biopsy and serologic workup if no improvement - daily labs # Acidosis: mild, likely in setting of GHAZALA # HTN: BP reasonable off meds # Cellulitis: appreciate ID Thank you for this consult, we will continue to follow with you. Subjective Date of service: 02/23/19 Interval history: No acute events noted. Remains with pain in left thigh. Objective - Exam Narrative Exam: General appearance: well-developed, well-nourished, appears stated age EENT: ATNC, PERRL Neck: Present: neck supple, trachea midline Respiratory: Clear to Ascultation Heart: regular, normal heart rate Gastrointestinal: Present: normoactive bowel sounds Integumentary: no rash, warm and dry, other (left thigh swelling/drainage noted) Neurologic: no focal deficit, no asterixis, alert and oriented x3, CN 3-12 intact Psychiatric: mood/affect appropriate - Vital Signs Vital signs: Vital Signs - 12hr 02/23/19 02/23/19 04:57 12:26 Temperature 97.8 F 97.4 F L Pulse Rate 94 H 99 H Respiratory 20 18 Rate Blood Pressure 123/79 191/92 O2 Sat by Pulse 96 98 Oximetry - Lab 02/22/19 12:31 02/22/19 12:31 Most recent lab results Calcium 9.2 mg/dL (8.4-10.2) 02/22/19 12:31 Medications & Allergies - Medications Allergies/Adverse Reactions: Allergies No Known Allergies Allergy (Unverified 02/19/19 07:26) Home Medications: Home Medications Medication Instructions Recorded Confirmed Last Taken Type Ibuprofen [Motrin 800 MG tab] 800 mg PO Q8HR PRN #30 tablet 02/19/19 02/22/19 08:00 Rx 800 mg cephALEXin [Keflex] 500 mg PO Q6HR #28 capsule 02/19/19 02/22/19 02/22/19 08:00 Rx 500 mg Active Medications: Generic Name Dose Route Start Last Admin Trade Name Freq PRN Reason Stop Dose Admin Acetaminophen 650 mg 02/22/19 14:24 Tylenol PO Q6H PRN Pain, Mild (1-3) Sodium Chloride 1,000 mls @ 150 mls/hr 02/22/19 15:30 02/23/19 05:43 Nacl 0.9% 1000 Ml IV 150 mls/hr DIRECT RICA Administration Ceftriaxone Sodium 2 gm in 100 mls @ 200 mls/hr 02/22/19 17:00 02/23/19 09:21 Rocephin/Ns 2 Gm/100 Ml IV 200 mls/hr Q24HR RICA Administration Protocol Morphine Sulfate 2 mg 02/22/19 15:25 02/23/19 12:34 Morphine IV 2 mg Q4H PRN Administration Pain, Moderate (4-6)
--- NOTE | 2019-02-23 13:58 | Progress Note ---
Assessment and Plan Cultures: Blood cultures 02/22/2019 pending Urine cultures 02/22/2019 pending. A/P: 48 yo M PMHx DM2 presented to the hospital with cellulitis 1. Acute sepsis - present with tachycardia and leukocytosis, secondary to cellulitis 2. Cellulitis - was given Keflex as outpatient, which is a reasonable empiric therapy. Possible MRSA given non-response. Continue vancomycin. Ok to de- escalate cefepime to ceftriaxone. Doubt Pseudomonas involvement. 3. DM2 - tight glycemic control for best wound healing 4. CKD vs Vitaly - unclear baseline, decreased GFR. renally dose antibiotics as appropriate. Recs: - continue ceftriaxone 2g q24h - continue vancomycin dosed per pharmacy, goal trough 10-20. - If no improvement in pain with above antibiotics, would repeat CT leg with contrast if possible in order to re-evaluate for abscess. Thank you for the consult, we will continue to follow. Dorota Morrissey MD [facility] ([facility]) M: [phone] O: [phone] F: [phone] Subjective Date of service: 02/23/19 Interval history: Afebrile, no new CBC available. ongoing leg pain. Objective - Exam Narrative Exam: Constitutional: Alert, cooperative. No acute distress Head, Ears, Nose: Normocephalic, atraumatic. External ears, nose normal Eyes: Conjunctivae/corneas clear. No icterus. No ptosis. Neck: Supple, no meningeal signs Oral: dentition fair, no thrush Cardiovascular: S1, S2 normal. Respiratory: Good air entry, clear to auscultation bilaterally GI: Soft, non-tender; bowel sounds normal. No peritoneal signs. Musculoskeletal: No pedal edema, no cyanosis. Redness and severe tenderness of L medial thigh. No fluctuance felt. Skin: No rash or abscess Hem/Lymphatic: No palpable cervical or supraclavicular nodes. No lymphangitis Psych: Mood ok. Affect normal Neurological: Awake, alert, oriented. No gross abnormality - Constitutional Vitals: Vital Signs Temp Pulse Resp BP Pulse Ox 97.4 F L 99 H 18 191/92 98 02/23/19 12:26 02/23/19 12:26 02/23/19 12:26 02/23/19 12:26 02/23/19 12:26 Temperature -Last 24 Hours Temperature 97.4 F Temperature 97.8 F Temperature 98.8 F Temperature 98.3 F - Labs CBC & Chem 7: 02/22/19 12:31 02/22/19 12:31 Labs: Abnormal lab results 02/22/19 02/22/19 02/22/19 Range/Units 12:31 17:22 21:43 Seg Neuts % (Manual) 79.0 H (40.0-70.0) % Lymphocytes % (Manual) 7.0 L (13.4-35.0) % Seg Neutrophils # Man 18.6 H (1.8-7.7) K/mm3 Monocytes # (Manual) 0.9 H (0.0-0.8) K/mm3 POC Glucose 155 H 162 H (70-105) Urine WBC (Auto) (0.0-6.0) /HPF 02/22/19 02/23/19 02/23/19 Range/Units Unknown 02:36 11:37 Seg Neuts % (Manual) (40.0-70.0) % Lymphocytes % (Manual) (13.4-35.0) % Seg Neutrophils # Man (1.8-7.7) K/mm3 Monocytes # (Manual) (0.0-0.8) K/mm3 POC Glucose 112 H 144 H (70-105) Urine WBC (Auto) 12.0 H (0.0-6.0) /HPF
[2019-02-23 14:35] LABS: Calcium 8.5 mg/dL (8.4-10.2)
--- NOTE | 2019-02-23 14:45 | Consultation ---
History of Present Illness Consult date: 02/23/19 - History of present illness History of present illness: 48 yo male with left thigh abscess which began draining this morning. There is no h/o DM. Past History Past Medical History: No medical history Past Surgical History: Other (recent i/d) Social history: no significant social history, full code Family history: no significant family history Medications and Allergies Allergies Allergy/AdvReac Type Severity Reaction Status Date / Time No Known Allergies Allergy Unverified 02/19/19 07:26 Home Medications Medication Instructions Recorded Confirmed Last Taken Type Ibuprofen [Motrin 800 MG tab] 800 mg PO Q8HR PRN #30 tablet 02/19/19 02/22/19 08:00 Rx 800 mg cephALEXin [Keflex] 500 mg PO Q6HR #28 capsule 02/19/19 02/22/19 02/22/19 08:00 Rx 500 mg Active Meds: Active Medications Acetaminophen (Tylenol) 650 mg PO Q6H PRN PRN Reason: Pain, Mild (1-3) Sodium Chloride (Nacl 0.9% 1000 Ml) 1,000 mls @ 150 mls/hr IV DIRECT RICA Last Admin: 02/23/19 13:57 Dose: 150 mls/hr Documented by: Ceftriaxone Sodium (Rocephin/Ns 2 Gm/100 Ml) 2 gm in 100 mls @ 200 mls/hr IV Q24HR RICA; Protocol Last Admin: 02/23/19 09:21 Dose: 200 mls/hr Documented by: Morphine Sulfate (Morphine) 2 mg IV Q4H PRN PRN Reason: Pain, Moderate (4-6) Last Admin: 02/23/19 12:34 Dose: 2 mg Documented by: Review of Systems All systems: negative (none) Exam Vital Signs Temp Pulse Resp BP Pulse Ox 98.1 F 107 H 20 101/67 97 02/22/19 09:42 02/22/19 09:42 02/22/19 09:42 02/22/19 09:42 02/22/19 09:42 - General physical appearance Positive: well developed, well nourished, no distress - Eyes Positive: PERRL, normal occular movement - ENT Positive: normal pinna, normal nares, normal mucosa, no hearing loss, no congestion - Neck Positive: no masses, no bruits, trachea midline, no venous distension - Respiratory Positive: normal expansion, normal respiratory effort, clear to auscultation - Cardiovascular Rhythm: regular Heart Sounds: Present: S1 & S2. Absent: rub, click - Extremities Extremities: no ischemia, pulses symmetrical, No edema - Breasts Breasts: deferred - Abdomen Abdomen: Present: soft, bowel sounds normal. Absent: tender, distended Hernia: none - Genitourinary Male Genitourinary: deferred - Integumentary other (There is a well draining abscess of the anterior left thigh.) - Neurologic Neurologic: alert and oriented to time, place and person, motor strength and sensation are grossly intact - Musculoskeletal normal gait, normal posture - Psychiatric Psychiatric: appropriate mood/affect, intact judgment & insight Results - Labs 02/22/19 12:31 02/23/19 13:54 Abnormal lab results 02/22/19 02/22/19 02/22/19 Range/Units 17:22 21:43 Unknown Carbon Dioxide (22-30) mmol/L BUN (9-20) mg/dL Creatinine (0.8-1.5) mg/dL Glucose (75-100) mg/dL POC Glucose 155 H 162 H (70-105) Urine WBC (Auto) 12.0 H (0.0-6.0) /HPF 02/23/19 02/23/19 02/23/19 Range/Units 02:36 11:37 13:54 Carbon Dioxide 20 L (22-30) mmol/L BUN 59 H (9-20) mg/dL Creatinine 3.4 H (0.8-1.5) mg/dL Glucose 130 H (75-100) mg/dL POC Glucose 112 H 144 H (70-105) Urine WBC (Auto) (0.0-6.0) /[facility] Diabetes panel 02/22/19 02/23/19 Range/Units 22:30 13:54 Sodium 140 (137-145) mmol/L Potassium 3.8 (3.6-5.0) mmol/L Chloride 104.1 (98-107) mmol/L Carbon Dioxide 20 L (22-30) mmol/L BUN 59 H (9-20) mg/dL Creatinine 3.4 H (0.8-1.5) mg/dL Glucose 130 H (75-100) mg/dL Hemoglobin A1c 5.7 (4-6) % Calcium 8.5 (8.4-10.2) mg/dL Calcium panel 02/23/19 Range/Units 13:54 Calcium 8.5 (8.4-10.2) mg/dL Pituitary panel 02/23/19 Range/Units 13:54 Sodium 140 (137-145) mmol/L Potassium 3.8 (3.6-5.0) mmol/L Chloride 104.1 (98-107) mmol/L Carbon Dioxide 20 L (22-30) mmol/L BUN 59 H (9-20) mg/dL Creatinine 3.4 H (0.8-1.5) mg/dL Glucose 130 H (75-100) mg/dL Calcium 8.5 (8.4-10.2) mg/dL Adrenal panel 02/23/19 Range/Units 13:54 Sodium 140 (137-145) mmol/L Potassium 3.8 (3.6-5.0) mmol/L Chloride 104.1 (98-107) mmol/L Carbon Dioxide 20 L (22-30) mmol/L BUN 59 H (9-20) mg/dL Creatinine 3.4 H (0.8-1.5) mg/dL Glucose 130 H (75-100) mg/dL Calcium 8.5 (8.4-10.2) mg/dL Assessment and Plan - Patient Problems (1) Cellulitis and abscess of left lower extremity Current Visit: No Status: Acute Plan to address problem: 1) I&D is not necessary since the abscess is draining adequately. 2) Continue Ceftriaxone 3) CBC in the am
--- NOTE | 2019-02-23 21:57 | Progress Note ---
Assessment and Plan Assessment and plan: Patient is a 48-year-old man with no significant past medical history according to him who presents to the ED with complaint of redness and pain in the left medial thigh. He believes this may have started as a result of having some bites he was initially seen in the ED 3 days ago and was discharged on a ntibiotics with no improvement of symptoms. The patient reports that instead the area has become more indurated with increased redness warm. He requires a cane to ambulate secondary to the severe pain and this is constant. He rates the pain a 10/10 intensity. He denies any nausea vomiting or diarrhea he denies any fever although reports chills * CT of the lower extremity shows subcutaneous edema. No clear abscess noted. Left thigh cellulitis/abscess Acute kidney injury likely secondary to vasomotor nephropathy could also have an underlying CKD. Hypertension Metabolic acidosis Plan We will admit patient to inpatient status for underlining severe cellulitis and systemic inflammatory response syndrome Start patient on vancomycin and consult infectious disease specialist We will also obtain nephrology consult Obtain renal ultrasound Monitor and replace electrolytes as needed Pain control DVT and GI prophylaxis History Interval history: Patient was seen and examined. Follow-up on current diagnosis of left thigh infection. Overnight uneventful as no events directly reported to me. Patient denies any chest pain, shortness breath, nausea/vomiting or severe headaches. Imaging, nursing note, chart, labs and old chart reviewed. Discussed with patient. Hospitalist Physical - Physical exam Narrative exam: Gen: WDWN, NAD, Awake, Alert, Orientated HEENT: NCAT, EOMI, PERRL, OP Clear Neck: supple, no adenopathy, no thyromegaly, no JVD CVS/Heart: RRR, normal S1S2, pulses present bilaterally Chest/Lungs: CTA B, Symmetrical chest expansion, good air entry bilaterally GI/Abdomen: soft, NTND, good bowel sounds, no guarding or rebound /Bladder: no suprapubic tenderness, no CVA or paraspinal tenderness Extermity/Skin: anterior Left thigh red, indurated, warm and tender. It is draining sero-purulent drainage at the time of this assessment. MSK: FROM x 4 Neuro: CN 2-12 grossly intact, no new focal deficits Psych: calm - Constitutional Vitals: Temp Pulse Resp BP Pulse Ox 101.1 F H 107 H 18 135/73 95 02/23/19 17:02 02/23/19 17:02 02/23/19 17:02 02/23/19 17:02 02/23/19 17:02 Results - Labs CBC & Chem 7: 02/24/19 05:52 02/23/19 13:54 Labs: Laboratory Last Values WBC 23.6 K/mm3 (4.5-11.0) H 02/22/19 12:31 RBC 4.37 M/mm3 (3.65-5.03) 02/22/19 12:31 Hgb 12.5 gm/dl (11.8-15.2) 02/22/19 12:31 Hct 37.7 % (35.5-45.6) 02/22/19 12:31 MCV 86 fl (84-94) 02/22/19 12:31 MCH 29 pg (28-32) 02/22/19 12:31 MCHC 33 % (32-34) 02/22/19 12:31 RDW 14.0 % (13.2-15.2) 02/22/19 12:31 Plt Count 405 K/mm3 (140-440) 02/22/19 12:31 Add Manual Diff Complete 02/22/19 12:31 Total Counted 100 02/22/19 12:31 Seg Neuts % (Manual) 79.0 % (40.0-70.0) H 02/22/19 12:31 Band Neutrophils % 8.0 % 02/22/19 12:31 Lymphocytes % (Manual) 7.0 % (13.4-35.0) L 02/22/19 12:31 Reactive Lymphs % (Man) 2.0 % 02/22/19 12:31 Monocytes % (Manual) 4.0 % (0.0-7.3) 02/22/19 12:31 Eosinophils % (Manual) 0 % (0.0-4.3) 02/22/19 12:31 Basophils % (Manual) 0 % (0.0-1.8) 02/22/19 12:31 Metamyelocytes % 0 % 02/22/19 12:31 Myelocytes % 0 % 02/22/19 12:31 Promyelocytes % 0 % 02/22/19 12:31 Blast Cells % 0 % 02/22/19 12:31 Nucleated RBC % Not Reportable 02/22/19 12:31 Seg Neutrophils # Man 18.6 K/mm3 (1.8-7.7) H 02/22/19 12:31 Band Neutrophils # 1.9 K/mm3 02/22/19 12:31 Lymphocytes # (Manual) 1.7 K/mm3 (1.2-5.4) 02/22/19 12:31 Abs React Lymphs (Man) 0.5 K/mm3 02/22/19 12:31 Monocytes # (Manual) 0.9 K/mm3 (0.0-0.8) H 02/22/19 12:31 Eosinophils # (Manual) 0.0 K/mm3 (0.0-0.4) 02/22/19 12:31 Basophils # (Manual) 0.0 K/mm3 (0.0-0.1) 02/22/19 12:31 Metamyelocytes # 0.0 K/mm3 02/22/19 12:31 Myelocytes # 0.0 K/mm3 02/22/19 12:31 Promyelocytes # 0.0 K/mm3 02/22/19 12:31 Blast Cells # 0.0 K/mm3 02/22/19 12:31 WBC Morphology Not Reportable 02/22/19 12:31 Hypersegmented Neuts Not Reportable 02/22/19 12:31 Hyposegmented Neuts Not Reportable 02/22/19 12:31 Hypogranular Neuts Not Reportable 02/22/19 12:31 Smudge Cells Not Reportable 02/22/19 12:31 Toxic Granulation Not Reportable 02/22/19 12:31 Toxic Vacuolation Not Reportable 02/22/19 12:31 Dohle Bodies Not Reportable 02/22/19 12:31 Pelger-Huet Anomaly Not Reportable 02/22/19 12:31 Rani Rods Not Reportable 02/22/19 12:31 Platelet Estimate Consistent w auto 02/22/19 12:31 Clumped Platelets Not Reportable 02/22/19 12:31 Plt Clumps, EDTA Not Reportable 02/22/19 12:31 Large Platelets Not Reportable 02/22/19 12:31 Giant Platelets Not Reportable 02/22/19 12:31 Platelet Satelliting Not Reportable 02/22/19 12:31 Plt Morphology Comment Not Reportable 02/22/19 12:31 RBC Morphology Normal 02/22/19 12:31 Dimorphic RBCs Not Reportable 02/22/19 12:31 Polychromasia Not Reportable 02/22/19 12:31 Hypochromasia Not Reportable 02/22/19 12:31 Poikilocytosis Not Reportable 02/22/19 12:31 Anisocytosis Not Reportable 02/22/19 12:31 Microcytosis Not Reportable 02/22/19 12:31 Macrocytosis Not Reportable 02/22/19 12:31 Spherocytes Not Reportable 02/22/19 12:31 Pappenheimer Bodies Not Reportable 02/22/19 12:31 Sickle Cells Not Reportable 02/22/19 12:31 Target Cells Not Reportable 02/22/19 12:31 Tear Drop Cells Not Reportable 02/22/19 12:31 Ovalocytes Not Reportable 02/22/19 12:31 Helmet Cells Not Reportable 02/22/19 12:31 Dexter-Phil Campbell Bodies Not Reportable 02/22/19 12:31 [place] Rings Not Reportable 02/22/19 12:31 Jackson Cells Not Reportable 02/22/19 12:31 Bite Cells Not Reportable 02/22/19 12:31 Crenated Cell Not Reportable 02/22/19 12:31 Elliptocytes Not Reportable 02/22/19 12:31 Acanthocytes (Spur) Not Reportable 02/22/19 12:31 Rouleaux Not Reportable 02/22/19 12:31 Hemoglobin C Crystals Not Reportable 02/22/19 12:31 Schistocytes Not Reportable 02/22/19 12:31 Malaria parasites Not Reportable 02/22/19 12:31 [place]mer Bodies Not Reportable 02/22/19 12:31 Hem Pathologist Commnt No 02/22/19 12:31 Sodium 140 mmol/L (137-145) 02/23/19 13:54 Potassium 3.8 mmol/L (3.6-5.0) 02/23/19 13:54 Chloride 104.1 mmol/L (98-107) 02/23/19 13:54 Carbon Dioxide 20 mmol/L (22-30) L 02/23/19 13:54 Anion Gap 20 mmol/L 02/23/19 13:54 BUN 59 mg/dL (9-20) H 02/23/19 13:54 Creatinine 3.4 mg/dL (0.8-1.5) H 02/23/19 13:54 Estimated GFR 24 ml/min 02/23/19 13:54 BUN/Creatinine Ratio 17 % 02/23/19 13:54 Glucose 130 mg/dL (75-100) H 02/23/19 13:54 POC Glucose 155 (70-105) H 02/23/19 19:32 Hemoglobin A1c 5.7 % (4-6) 02/22/19 22:30 Lactic Acid 1.00 mmol/L (0.7-2.0) 02/22/19 14:34 Calcium 8.5 mg/dL (8.4-10.2) 02/23/19 13:54 Total Bilirubin 0.70 mg/dL (0.1-1.2) 02/22/19 12:31 AST 25 units/L (5-40) 02/22/19 12:31 ALT 22 units/L (7-56) 02/22/19 12:31 Alkaline Phosphatase 116 units/L (35-129) 02/22/19 12:31 Total Protein 8.1 g/dL (6.3-8.2) 02/22/19 12:31 Albumin 2.9 g/dL (3.9-5) L 02/22/19 12:31 Albumin/Globulin Ratio 0.6 % 02/22/19 12:31 Urine Color Yellow (Yellow) 02/22/19 Unknown Urine Turbidity Cloudy (Clear) 02/22/19 Unknown Urine pH 5.0 (5.0-7.0) 02/22/19 Unknown Ur Specific [place] 1.014 (1.003-1.030) 02/22/19 Unknown Urine Protein 100 mg/dl mg/dL (Negative) 02/22/19 Unknown Urine Glucose (UA) Neg mg/dL (Negative) 02/22/19 Unknown Urine Ketones Neg mg/dL (Negative) 02/22/19 Unknown Urine Blood Mod (Negative) 02/22/19 Unknown Urine Nitrite Neg (Negative) 02/22/19 Unknown Urine Bilirubin Neg (Negative) 02/22/19 Unknown Urine Urobilinogen 2.0 mg/dL (<2.0) 02/22/19 Unknown Ur Leukocyte Esterase Neg (Negative) 02/22/19 Unknown Urine WBC (Auto) 12.0 /HPF (0.0-6.0) H 02/22/19 Unknown Urine RBC (Auto) 3.0 /HPF (0.0-6.0) 02/22/19 Unknown U Epithel Cells (Auto) < 1.0 /HPF (0-13.0) 02/22/19 Unknown Urine Bacteria (Auto) 1+ /HPF (Negative) 02/22/19 Unknown Urine Mucus Few /HPF 02/22/19 Unknown Urine Yeast (Budding) 1+ /HPF 02/22/19 Unknown Blood Type O POSITIVE 02/22/19 14:34 Antibody Screen Negative 02/22/19 14:34 Active Medications - Current Medications Current Medications: Generic Name Dose Route Start Last Admin Trade Name Freq PRN Reason Stop Dose Admin Acetaminophen 650 mg 02/22/19 14:24 Tylenol PO Q6H PRN Pain, Mild (1-3) Sodium Chloride 1,000 mls @ 150 mls/hr 02/22/19 15:30 02/23/19 13:57 Nacl 0.9% 1000 Ml IV 150 mls/hr DIRECT RICA Administration Ceftriaxone Sodium 2 gm in 100 mls @ 200 mls/hr 02/22/19 17:00 02/23/19 09:21 Rocephin/Ns 2 Gm/100 Ml IV 200 mls/hr Q24HR RICA Administration Protocol Morphine Sulfate 2 mg 02/22/19 15:25 02/23/19 12:34 Morphine IV 2 mg Q4H PRN Administration Pain, Moderate (4-6) Nutrition/Malnutrition Assess - Dietary Evaluation Nutrition/Malnutrition Findings: Nutrition Notes Start: 02/23/19 10:19 Freq: Status: Active Protocol: Document 02/23/19 10:19 DENNIS (Rec: 02/23/19 10:29 [email or web address]) Nutrition Notes Need for Assessment generated from: MD Order Initial or Follow up Assessment Current Diagnosis Acute Kidney Injury,Diabetes Other Pertinent Diagnosis L medial thigh abscess Current Diet Renal diet Labs/Tests A1C: 5.7% * only lab from 02/23 Pertinent Medications NS at 150 ml/hr Height 5 ft 9 in Weight 90.7 kg Usual Body Weight 97.7 kg [place] Body Weight (kg) 72.72 BMI 29.5 Weight change and time frame Pt has lost 7% BW in unknown time period Subjective/Other Information MD consult for poor oral intake, MST screen. 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 Per pt, this resolved once he was provided with antibiotics. RD observed meal tray with 100% of food consumed. Pt stated he did not wish to recieve ONS, as his appetitie has returned. Percent of energy/protein needs met: 100% #1 Nutrition Diagnosis Inadequate oral intake Etiology Pain r/t left medial thigh abscess As Evidenced by Signs and Symptoms Pt report of 7% wt loss in unknown time period, pt report of decreased PO intake ANALYTICAL CONSULTANT Is patient on ventilator? No Is Patient Ambulatory and/or Out of Bed No REE-([facility]-confined to bed) 2136.180 Kcal/Kg value to use for calculation 20 Approximate Energy Requirements Using 1814 kcal/Kg Calculation Used for Recommendations Kcal/kg Additional Notes PRO needs: 54-73g/day (0.6-0.8 g/kg) Fluid needs 1ml/kcal or per MD Nutrition Intervention Change Diet Order: Continue Renal Diet until acute renal failure is resolved. Goal #1 Pt to consume at least 75% of estimated energy and protein needs via PO intakes Anticipated Discharge Needs: Unknown at this time Follow-Up By: 02/25/19 Additional Comments F/u for stable intakes, kidney labs, need to adjust nutrition requirements
[2019-02-24] MEDS: SODIUM CHLORIDE 0.9% 1000 ML 1,000 ML IV SCH ×3 (03:22→21:10)
[2019-02-24 06:20] LABS: Hematocrit 33.2 % (35.5-45.6); Mean Corpuscular HGB Conc 33 % (32-34); Mean Corpuscular Volume 88 fl (84-94); Platelet Count 280 K/mm3 (140-440); Red Blood Count 3.79 M/mm3 (3.65-5.03)
[2019-02-24 07:26] LABS: Band Neutrophils # (Manual) 1.6 K/mm3; Basophils % (Manual) 0 % (0.0-1.8); Eosinophils % (Manual) 0 % (0.0-4.3); Total Cells Counted 100
[2019-02-24 07:27] LABS: Platelet Estimate Consistent w Auto
--- NOTE | 2019-02-24 08:52 | Progress Note ---
Assessment and Plan Assessment and plan: Patient is a 48-year-old man without known medical problems who presented to [facility] ED with worsening left thigh infection. He was initially seen here in the ED 3 days ago prior this admission and was discharged from ED on antibiotics. * CT of the lower extremity shows subcutaneous edema. No clear abscess noted (without contrast however) Left thigh cellulitis/abscess: s/p manual drainage by Wound care, no culture taken, now afebrile and WBC decreased to 22.9k Drop in H/H after drainage of abscess on 02/23/18 (he had copious amounts of bloody discharge from left thigh abscess after drainage): monitor closely Sepsis, poa due to left thigh abscess: treat with IV abx Acute kidney injury likely secondary to vasomotor nephropathy could also have an underlying CKD; consulted Nephrology, monitor closely Hypertension: low salt diet Metabolic acidosis: consult Nephrology DVT ppx: hold anticoagulation due to bloody discharge from left thigh abscess History Interval history: Patient was seen and examined. Follow-up on current diagnosis of left thigh infection. Overnight uneventful as no events directly reported to me. Patient denies any chest pain, shortness breath, nausea/vomiting or severe headaches. Imaging, nursing note, chart, labs and old chart reviewed. Discussed with patient. Hospitalist Physical - Physical exam Narrative exam: Gen: WDWN, NAD, Awake, Alert, Orientated HEENT: NCAT, EOMI, PERRL, OP Clear Neck: supple, no adenopathy, no thyromegaly, no JVD CVS/Heart: RRR, normal S1S2, pulses present bilaterally Chest/Lungs: CTA B, Symmetrical chest expansion, good air entry bilaterally GI/Abdomen: soft, NTND, good bowel sounds, no guarding or rebound /Bladder: no suprapubic tenderness, no CVA or paraspinal tenderness Extermity/Skin: anterior Left thigh red, indurated, warm and tender. It is draining sero-purulent drainage at the time of this assessment. MSK: FROM x 4 Neuro: CN 2-12 grossly intact, no new focal deficits Psych: calm - Constitutional Vitals: Temp Pulse Resp BP Pulse Ox 97.8 F 91 H 20 131/78 94 02/24/19 05:06 02/24/19 05:06 02/24/19 05:06 02/24/19 05:06 02/24/19 05:06 Results - Labs CBC & Chem 7: 02/24/19 05:52 02/23/19 13:54 Labs: Laboratory Last Values WBC 22.9 K/mm3 (4.5-11.0) H 02/24/19 05:52 RBC 3.79 M/mm3 (3.65-5.03) 02/24/19 05:52 Hgb 11.0 gm/dl (11.8-15.2) L 02/24/19 05:52 Hct 33.2 % (35.5-45.6) L 02/24/19 05:52 MCV 88 fl (84-94) 02/24/19 05:52 MCH 29 pg (28-32) 02/24/19 05:52 MCHC 33 % (32-34) 02/24/19 05:52 RDW 14.0 % (13.2-15.2) 02/24/19 05:52 Plt Count 280 K/mm3 (140-440) 02/24/19 05:52 Add Manual Diff Complete 02/24/19 05:52 Total Counted 100 02/24/19 05:52 Seg Neuts % (Manual) 80.0 % (40.0-70.0) H 02/24/19 05:52 Band Neutrophils % 7.0 % 02/24/19 05:52 Lymphocytes % (Manual) 6.0 % (13.4-35.0) L 02/24/19 05:52 Reactive Lymphs % (Man) 0 % 02/24/19 05:52 Monocytes % (Manual) 6.0 % (0.0-7.3) 02/24/19 05:52 Eosinophils % (Manual) 0 % (0.0-4.3) 02/24/19 05:52 Basophils % (Manual) 0 % (0.0-1.8) 02/24/19 05:52 Metamyelocytes % 1.0 % 02/24/19 05:52 Myelocytes % 0 % 02/24/19 05:52 Promyelocytes % 0 % 02/24/19 05:52 Blast Cells % 0 % 02/24/19 05:52 Nucleated RBC % Not Reportable 02/24/19 05:52 Seg Neutrophils # Man 18.3 K/mm3 (1.8-7.7) H 02/24/19 05:52 Band Neutrophils # 1.6 K/mm3 02/24/19 05:52 Lymphocytes # (Manual) 1.4 K/mm3 (1.2-5.4) 02/24/19 05:52 Abs React Lymphs (Man) 0.0 K/mm3 02/24/19 05:52 Monocytes # (Manual) 1.4 K/mm3 (0.0-0.8) H 02/24/19 05:52 Eosinophils # (Manual) 0.0 K/mm3 (0.0-0.4) 02/24/19 05:52 Basophils # (Manual) 0.0 K/mm3 (0.0-0.1) 02/24/19 05:52 Metamyelocytes # 0.2 K/mm3 02/24/19 05:52 Myelocytes # 0.0 K/mm3 02/24/19 05:52 Promyelocytes # 0.0 K/mm3 02/24/19 05:52 Blast Cells # 0.0 K/mm3 02/24/19 05:52 WBC Morphology Not Reportable 02/24/19 05:52 Hypersegmented Neuts Not Reportable 02/24/19 05:52 Hyposegmented Neuts Not Reportable 02/24/19 05:52 Hypogranular Neuts Not Reportable 02/24/19 05:52 Smudge Cells Not Reportable 02/24/19 05:52 Toxic Granulation Not Reportable 02/24/19 05:52 Toxic Vacuolation Not Reportable 02/24/19 05:52 Dohle Bodies Not Reportable 02/24/19 05:52 Pelger-Huet Anomaly Not Reportable 02/24/19 05:52 Rani Rods Not Reportable 02/24/19 05:52 Platelet Estimate Consistent w auto 02/24/19 05:52 Clumped Platelets Not Reportable 02/24/19 05:52 Plt Clumps, EDTA Not Reportable 02/24/19 05:52 Large Platelets Not Reportable 02/24/19 05:52 Giant Platelets Not Reportable 02/24/19 05:52 Platelet Satelliting Not Reportable 02/24/19 05:52 Plt Morphology Comment Not Reportable 02/24/19 05:52 RBC Morphology Not Reportable 02/24/19 05:52 Dimorphic RBCs Not Reportable 02/24/19 05:52 Polychromasia Not Reportable 02/24/19 05:52 Hypochromasia Not Reportable 02/24/19 05:52 Poikilocytosis Not Reportable 02/24/19 05:52 Anisocytosis Not Reportable 02/24/19 05:52 Microcytosis Not Reportable 02/24/19 05:52 Macrocytosis Not Reportable 02/24/19 05:52 Spherocytes Not Reportable 02/24/19 05:52 Pappenheimer Bodies Not Reportable 02/24/19 05:52 Sickle Cells Not Reportable 02/24/19 05:52 Target Cells Not Reportable 02/24/19 05:52 Tear Drop Cells Not Reportable 02/24/19 05:52 Ovalocytes Not Reportable 02/24/19 05:52 Helmet Cells Not Reportable 02/24/19 05:52 [place] Bodies Not Reportable 02/24/19 05:52 Jenkinjones Rings Not Reportable 02/24/19 05:52 Chriss Cells Not Reportable 02/24/19 05:52 Bite Cells Not Reportable 02/24/19 05:52 Crenated Cell Not Reportable 02/24/19 05:52 Elliptocytes Not Reportable 02/24/19 05:52 Acanthocytes (Spur) Not Reportable 02/24/19 05:52 Rouleaux Not Reportable 02/24/19 05:52 Hemoglobin C Crystals Not Reportable 02/24/19 05:52 Schistocytes Not Reportable 02/24/19 05:52 Malaria parasites Not Reportable 02/24/19 05:52 Elmer Bodies Not Reportable 02/24/19 05:52 Hem Pathologist Commnt No 02/24/19 05:52 Sodium 140 mmol/L (137-145) 02/23/19 13:54 Potassium 3.8 mmol/L (3.6-5.0) 02/23/19 13:54 Chloride 104.1 mmol/L (98-107) 02/23/19 13:54 Carbon Dioxide 20 mmol/L (22-30) L 02/23/19 13:54 Anion Gap 20 mmol/L 02/23/19 13:54 BUN 59 mg/dL (9-20) H 02/23/19 13:54 Creatinine 3.4 mg/dL (0.8-1.5) H 02/23/19 13:54 Estimated GFR 24 ml/min 02/23/19 13:54 BUN/Creatinine Ratio 17 % 02/23/19 13:54 Glucose 130 mg/dL (75-100) H 02/23/19 13:54 POC Glucose 105 (70-105) 02/24/19 05:16 Hemoglobin A1c 5.7 % (4-6) 02/22/19 22:30 Lactic Acid 1.00 mmol/L (0.7-2.0) 02/22/19 14:34 Calcium 8.5 mg/dL (8.4-10.2) 02/23/19 13:54 Total Bilirubin 0.70 mg/dL (0.1-1.2) 02/22/19 12:31 AST 25 units/L (5-40) 02/22/19 12:31 ALT 22 units/L (7-56) 02/22/19 12:31 Alkaline Phosphatase 116 units/L (35-129) 02/22/19 12:31 Total Protein 8.1 g/dL (6.3-8.2) 02/22/19 12:31 Albumin 2.9 g/dL (3.9-5) L 02/22/19 12:31 Albumin/Globulin Ratio 0.6 % 02/22/19 12:31 Urine Color Yellow (Yellow) 02/22/19 Unknown Urine Turbidity Cloudy (Clear) 02/22/19 Unknown Urine pH 5.0 (5.0-7.0) 02/22/19 Unknown Ur Specific [place] 1.014 (1.003-1.030) 02/22/19 Unknown Urine Protein 100 mg/dl mg/dL (Negative) 02/22/19 Unknown Urine Glucose (UA) Neg mg/dL (Negative) 02/22/19 Unknown Urine Ketones Neg mg/dL (Negative) 02/22/19 Unknown Urine Blood Mod (Negative) 02/22/19 Unknown Urine Nitrite Neg (Negative) 02/22/19 Unknown Urine Bilirubin Neg (Negative) 02/22/19 Unknown Urine Urobilinogen 2.0 mg/dL (<2.0) 02/22/19 Unknown Ur Leukocyte Esterase Neg (Negative) 02/22/19 Unknown Urine WBC (Auto) 12.0 /HPF (0.0-6.0) H 02/22/19 Unknown Urine RBC (Auto) 3.0 /HPF (0.0-6.0) 02/22/19 Unknown U Epithel Cells (Auto) < 1.0 /HPF (0-13.0) 02/22/19 Unknown Urine Bacteria (Auto) 1+ /HPF (Negative) 02/22/19 Unknown Urine Mucus Few /HPF 02/22/19 Unknown Urine Yeast (Budding) 1+ /HPF 02/22/19 Unknown Random Vancomycin 5.1 ug/mL (0-40.0) 02/24/19 05:52 Blood Type O POSITIVE 02/22/19 14:34 Antibody Screen Negative 02/22/19 14:34 Active Medications - Current Medications Current Medications: Generic Name Dose Route Start Last Admin Trade Name Freq PRN Reason Stop Dose Admin Acetaminophen 650 mg 02/22/19 14:24 Tylenol PO Q6H PRN Pain, Mild (1-3) Sodium Chloride 1,000 mls @ 150 mls/hr 02/22/19 15:30 02/24/19 03:22 Nacl 0.9% 1000 Ml IV 150 mls/hr DIRECT RICA Administration Ceftriaxone Sodium 2 gm in 100 mls @ 200 mls/hr 02/22/19 17:00 02/23/19 09:21 Rocephin/Ns 2 Gm/100 Ml IV 200 mls/hr Q24HR RICA Administration Protocol Morphine Sulfate 2 mg 02/22/19 15:25 02/23/19 22:04 Morphine IV 2 mg Q4H PRN Administration Pain, Moderate (4-6) Nutrition/Malnutrition Assess - Dietary Evaluation Nutrition/Malnutrition Findings: Nutrition Notes Start: 02/23/19 10:19 Freq: Status: Active Protocol: Document 02/23/19 10:19 DENNIS (Rec: 02/23/19 10:29 [email or web address]) Nutrition Notes Need for Assessment generated from: MD Order Initial or Follow up Assessment Current Diagnosis Acute Kidney Injury,Diabetes Other Pertinent Diagnosis L medial thigh abscess Current Diet Renal diet Labs/Tests A1C: 5.7% * only lab from 02/23 Pertinent Medications NS at 150 ml/hr Height 5 ft 9 in Weight 90.7 kg Usual Body Weight 97.7 kg [place] Body Weight (kg) 72.72 BMI 29.5 Weight change and time frame Pt has lost 7% BW in unknown time period Subjective/Other Information MD consult for poor oral intake, MST screen. Pt stated he was nauseaous [employer] r/t pain from thigh abscess. Per pt, this resolved once he was provided with antibiotics. RD observed meal tray with 100% of food consumed. Pt stated he did not wish to recieve ONS, as his appetitie has returned. Percent of energy/protein needs met: 100% #1 Nutrition Diagnosis Inadequate oral intake Etiology Pain r/t left medial thigh abscess As Evidenced by Signs and Symptoms Pt report of 7% wt loss in unknown time period, pt report of decreased PO intake [employer] Is patient on ventilator? No Is Patient Ambulatory and/or Out of Bed No REE-([facility]-confined to bed) 2136.180 Kcal/Kg value to use for calculation 20 Approximate Energy Requirements Using 1814 kcal/Kg Calculation Used for Recommendations Kcal/kg Additional Notes PRO needs: 54-73g/day (0.6-0.8 g/kg) Fluid needs 1ml/kcal or per MD Nutrition Intervention Change Diet Order: Continue Renal Diet until acute renal failure is resolved. Goal #1 Pt to consume at least 75% of estimated energy and protein needs via PO intakes Anticipated Discharge Needs: Unknown at this time Follow-Up By: 02/25/19 Additional Comments F/u for stable intakes, kidney labs, need to adjust nutrition requirements
[2019-02-24] MEDS: cefTRIAXone/NS 2 GM/100 ML 2 GM/100 ML BAG IV SCH (10:38)
[2019-02-24] MEDS ORDERED: VANCOMYCIN 1,500 MG in SODIUM CHLORIDE 0.9% 500 ML 500 ML IV ONE (12:00)
[2019-02-24] MEDS: MORPHINE 2 MG/1 ML INJ IV PRN (12:56)
--- NOTE | 2019-02-24 13:16 | Progress Note ---
Assessment and Plan Cultures: Blood cultures 02/22/2019 pending Urine cultures 02/22/2019 pending. [facility] cultures 02/23/2019 - S aureus A/P: 48 yo M PMHx DM2 presented to the hospital with cellulitis 1. Acute sepsis - present with tachycardia and leukocytosis, secondary to cellulitis 2. Cellulitis - was given Keflex as outpatient, which is a reasonable empiric therapy. Possible MRSA given non-response. Continue vancomycin. Cultures with Staph. Spontaneously draining 3. DM2 - tight glycemic control for best wound healing 4. CKD vs Vitaly - unclear baseline, decreased GFR. renally dose antibiotics as appropriate. Recs: - continue ceftriaxone 2g q24h - continue vancomycin dosed per pharmacy, goal trough 10-20. Subtherapeutic on random vanco. If unable to get therapeutic dosing will consider changing medications. - If no improvement in pain with above antibiotics, would repeat CT leg with contrast if possible in order to re-evaluate for abscess. - follow up MICs of Staph Thank you for the consult, we will continue to follow. Dorota Morrissey MD [facility] ([facility] M: [phone] O: [phone] F: [phone] Subjective Date of service: 02/24/19 Interval history: Afebrile, CBC essentially unchanged. Ongoing pain. Objective - Exam Narrative Exam: Constitutional: Alert, cooperative. No acute distress Head, Ears, Nose: Normocephalic, atraumatic. External ears, nose normal Eyes: Conjunctivae/corneas clear. No icterus. No ptosis. Neck: Supple, no meningeal signs Oral: dentition fair, no thrush Cardiovascular: S1, S2 normal. Respiratory: Good air entry, clear to auscultation bilaterally GI: Soft, non-tender; bowel sounds normal. No peritoneal signs. Musculoskeletal: No pedal edema, no cyanosis. Redness and severe tenderness of L medial thigh. No fluctuance felt. Large swelling of L leg. Skin: No rash or abscess Hem/Lymphatic: No palpable cervical or supraclavicular nodes. No lymphangitis Psych: Mood ok. Affect normal Neurological: Awake, alert, oriented. No gross abnormality - Constitutional Vitals: Vital Signs Temp Pulse Resp BP Pulse Ox 98.1 F 96 H 18 137/71 97 02/24/19 11:49 02/24/19 11:49 02/24/19 11:49 02/24/19 11:49 02/24/19 11:49 Temperature -Last 24 Hours Temperature 98.1 F Temperature 97.8 F Temperature 99.2 F Temperature 101.1 F - Labs CBC & Chem 7: 02/24/19 05:52 02/23/19 13:54 Labs: Abnormal lab results 02/23/19 02/23/19 02/23/19 Range/Units 13:54 15:20 19:32 WBC (4.5-11.0) K/mm3 Hgb (11.8-15.2) gm/dl Hct (35.5-45.6) % Seg Neuts % (Manual) (40.0-70.0) % Lymphocytes % (Manual) (13.4-35.0) % Seg Neutrophils # Man (1.8-7.7) K/mm3 Monocytes # (Manual) (0.0-0.8) K/mm3 Carbon Dioxide 20 L (22-30) mmol/L BUN 59 H (9-20) mg/dL Creatinine 3.4 H (0.8-1.5) mg/dL Glucose 130 H (75-100) mg/dL POC Glucose 134 H 155 H (70-105) 02/23/19 02/24/19 02/24/19 Range/Units 21:49 02:14 05:52 WBC 22.9 H (4.5-11.0) K/mm3 Hgb 11.0 L (11.8-15.2) gm/dl Hct 33.2 L (35.5-45.6) % Seg Neuts % (Manual) 80.0 H (40.0-70.0) % Lymphocytes % (Manual) 6.0 L (13.4-35.0) % Seg Neutrophils # Man 18.3 H (1.8-7.7) K/mm3 Monocytes # (Manual) 1.4 H (0.0-0.8) K/mm3 Carbon Dioxide (22-30) mmol/L BUN (9-20) mg/dL Creatinine (0.8-1.5) mg/dL Glucose (75-100) mg/dL POC Glucose 124 H 110 H (70-105)
--- NOTE | 2019-02-24 16:23 | Progress Note ---
Assessment and Plan # GHAZALA: creatinine 4.6 on admission->3.4; no labs today. Suspect GHAZALA in setting of dehydration/pre renal injury and NSAID use. Urinalysis reviewed, does have some blood/WBCs. Imaging without acute obstruction. Do suspect that he may have some CKD given appearance of kidneys on ultrasound with episodes of elevated BP. - for now, IVF prn and encourage po hydration. If creatinine downtrending, can wean IVF - avoid nephrotoxins - renally dose meds - no indication for renal replacement therapy currently - consider biopsy and serologic workup if no improvement - daily labs # Acidosis: mild and improving, likely in setting of GHAZALA # HTN: BP reasonable off meds # Cellulitis: appreciate ID Thank you for this consult, we will continue to follow with you. Subjective Date of service: 02/24/19 Interval history: No acute events noted. Remains with pain in left thigh. Continues to have drainage noted. Notes normal urination. Objective - Exam Narrative Exam: General appearance: well-developed, well-nourished, appears stated age EENT: ATNC, PERRL Neck: Present: neck supple, trachea midline Respiratory: Clear to Ascultation Heart: regular, normal heart rate Gastrointestinal: Present: normoactive bowel sounds Integumentary: no rash, warm and dry, other (left thigh swelling/drainage noted) Neurologic: no focal deficit, no asterixis, alert and oriented x3, CN 3-12 intact Psychiatric: mood/affect appropriate - Vital Signs Vital signs: Vital Signs - 12hr 02/24/19 02/24/19 05:06 11:49 Temperature 97.8 F 98.1 F Pulse Rate 91 H 96 H Respiratory 20 18 Rate Blood Pressure 131/78 137/71 O2 Sat by Pulse 94 97 Oximetry - Lab 02/24/19 05:52 02/23/19 13:54 Most recent lab results Calcium 8.5 mg/dL (8.4-10.2) 02/23/19 13:54 Medications & Allergies - Medications Allergies/Adverse Reactions: Allergies No Known Allergies Allergy (Unverified 02/19/19 07:26) Home Medications: Home Medications Medication Instructions Recorded Confirmed Last Taken Type Ibuprofen [Motrin 800 MG tab] 800 mg PO Q8HR PRN #30 tablet 02/19/19 02/24/19 02/22/19 08:00 Rx 800 mg cephALEXin [Keflex] 500 mg PO Q6HR #28 capsule 02/19/19 02/22/19 02/22/19 08:00 Rx 500 mg Active Medications: Generic Name Dose Route Start Last Admin Trade Name Freq PRN Reason Stop Dose Admin Acetaminophen 650 mg 02/22/19 14:24 Tylenol PO Q6H PRN Pain, Mild (1-3) Sodium Chloride 1,000 mls @ 150 mls/hr 02/22/19 15:30 02/24/19 10:38 Nacl 0.9% 1000 Ml IV 150 mls/hr DIRECT RICA Administration Ceftriaxone Sodium 2 gm in 100 mls @ 200 mls/hr 02/22/19 17:00 02/24/19 10:38 Rocephin/Ns 2 Gm/100 Ml IV 200 mls/hr Q24HR RICA Administration Protocol Morphine Sulfate 2 mg 02/22/19 15:25 02/24/19 12:56 Morphine IV 2 mg Q4H PRN Administration Pain, Moderate (4-6)
[2019-02-24] MEDS ORDERED: VANCOMYCIN PHARMACY TO DOSE IV SCH (18:00)
[2019-02-25] MEDS: MORPHINE 2 MG/1 ML INJ IV PRN ×2 (03:52→21:49)
[2019-02-25] MEDS: SODIUM CHLORIDE 0.9% 1000 ML 1,000 ML IV SCH ×3 (03:56→21:56)
[2019-02-25] MEDS: HYDROcodone/ACETAMINOPHEN 10-325MG TAB PO PRN (05:28)
[2019-02-25 05:49] LABS: Hematocrit 34.1 % (35.5-45.6); Hemoglobin 11.3 gm/dl (11.8-15.2); Mean Corpuscular HGB Conc 33 % (32-34); Mean Corpuscular Volume 88 fl (84-94); Platelet Count 271 K/mm3 (140-440); Red Blood Count 3.88 M/mm3 (3.65-5.03); Red Cell Distribution Width 13.9 % (13.2-15.2)
[2019-02-25 06:06] LABS: Calcium 8.4 mg/dL (8.4-10.2)
--- NOTE | 2019-02-25 08:22 | Progress Note ---
Assessment and Plan Assessment and plan: Patient is a 48-year-old man without known medical problems who presented to [facility] ED with worsening left thigh infection. He was initially seen here in the ED 3 days ago prior this admission and was discharged from ED on antibiotics. * CT of the lower extremity shows subcutaneous edema. No clear abscess noted (without contrast however) MRSA Left thigh cellulitis/abscess: s/p manual drainage by Wound care, no culture taken, now afebrile and WBC back up, I called back Dr. Hoffman, excisional I-n-D tomorrow Drop in H/H after drainage of abscess on 02/23/18 (he had copious amounts of bloody discharge from left thigh abscess after drainage): monitor closely Sepsis, poa due to left thigh abscess: treat with IV abx Acute kidney injury likely secondary to vasomotor nephropathy could also have an underlying CKD; tremendously improved today, Cr went from 3.4-->1.7, consulted Nephrology, input greatly appreciated, continue to monitor closely Hypertension: low salt diet Metabolic acidosis: consult Nephrology DVT ppx: hold anticoagulation due to bloody discharge from left thigh abscess OR tomorrow History Interval history: Patient was seen and examined. Follow-up on current diagnosis of left thigh infection. Overnight uneventful as no events directly reported to me. Patient denies any chest pain, shortness breath, nausea/vomiting or severe headaches. Imaging, nursing note, chart, labs and old chart reviewed. Discussed with patient. Hospitalist Physical - Physical exam Narrative exam: Gen: WDWN, NAD, Awake, Alert, Orientated HEENT: NCAT, EOMI, PERRL, OP Clear Neck: supple, no adenopathy, no thyromegaly, no JVD CVS/Heart: RRR, normal S1S2, pulses present bilaterally Chest/Lungs: CTA B, Symmetrical chest expansion, good air entry bilaterally GI/Abdomen: soft, NTND, good bowel sounds, no guarding or rebound /Bladder: no suprapubic tenderness, no CVA or paraspinal tenderness Extermity/Skin: anterior Left thigh red, indurated, warm and tender. It is draining sero-purulent drainage at the time of this assessment. MSK: FROM x 4 Neuro: CN 2-12 grossly intact, no new focal deficits Psych: calm - Constitutional Vitals: Temp Pulse Resp BP Pulse Ox 97.5 F L 90 20 149/91 98 02/25/19 05:38 02/25/19 05:38 02/25/19 05:38 02/25/19 05:38 02/25/19 05:38 Results - Labs CBC & Chem 7: 02/25/19 04:30 02/25/19 04:30 Labs: Laboratory Last Values WBC 24.4 K/mm3 (4.5-11.0) H 02/25/19 04:30 RBC 3.88 M/mm3 (3.65-5.03) 02/25/19 04:30 Hgb 11.3 gm/dl (11.8-15.2) L 02/25/19 04:30 Hct 34.1 % (35.5-45.6) L 02/25/19 04:30 MCV 88 fl (84-94) 02/25/19 04:30 MCH 29 pg (28-32) 02/25/19 04:30 MCHC 33 % (32-34) 02/25/19 04:30 RDW 13.9 % (13.2-15.2) 02/25/19 04:30 Plt Count 271 K/mm3 (140-440) 02/25/19 04:30 Add Manual Diff Complete 02/24/19 05:52 Total Counted 100 02/24/19 05:52 Seg Neuts % (Manual) 80.0 % (40.0-70.0) H 02/24/19 05:52 Band Neutrophils % 7.0 % 02/24/19 05:52 Lymphocytes % (Manual) 6.0 % (13.4-35.0) L 02/24/19 05:52 Reactive Lymphs % (Man) 0 % 02/24/19 05:52 Monocytes % (Manual) 6.0 % (0.0-7.3) 02/24/19 05:52 Eosinophils % (Manual) 0 % (0.0-4.3) 02/24/19 05:52 Basophils % (Manual) 0 % (0.0-1.8) 02/24/19 05:52 Metamyelocytes % 1.0 % 02/24/19 05:52 Myelocytes % 0 % 02/24/19 05:52 Promyelocytes % 0 % 02/24/19 05:52 Blast Cells % 0 % 02/24/19 05:52 Nucleated RBC % Not Reportable 02/24/19 05:52 Seg Neutrophils # Man 18.3 K/mm3 (1.8-7.7) H 02/24/19 05:52 Band Neutrophils # 1.6 K/mm3 02/24/19 05:52 Lymphocytes # (Manual) 1.4 K/mm3 (1.2-5.4) 02/24/19 05:52 Abs React Lymphs (Man) 0.0 K/mm3 02/24/19 05:52 Monocytes # (Manual) 1.4 K/mm3 (0.0-0.8) H 02/24/19 05:52 Eosinophils # (Manual) 0.0 K/mm3 (0.0-0.4) 02/24/19 05:52 Basophils # (Manual) 0.0 K/mm3 (0.0-0.1) 02/24/19 05:52 Metamyelocytes # 0.2 K/mm3 02/24/19 05:52 Myelocytes # 0.0 K/mm3 02/24/19 05:52 Promyelocytes # 0.0 K/mm3 02/24/19 05:52 Blast Cells # 0.0 K/mm3 02/24/19 05:52 WBC Morphology Not Reportable 02/24/19 05:52 Hypersegmented Neuts Not Reportable 02/24/19 05:52 Hyposegmented Neuts Not Reportable 02/24/19 05:52 Hypogranular Neuts Not Reportable 02/24/19 05:52 Smudge Cells Not Reportable 02/24/19 05:52 Toxic Granulation Not Reportable 02/24/19 05:52 Toxic Vacuolation Not Reportable 02/24/19 05:52 Dohle Bodies Not Reportable 02/24/19 05:52 Pelger-Huet Anomaly Not Reportable 02/24/19 05:52 Rani Rods Not Reportable 02/24/19 05:52 Platelet Estimate Consistent w auto 02/24/19 05:52 Clumped Platelets Not Reportable 02/24/19 05:52 Plt Clumps, EDTA Not Reportable 02/24/19 05:52 Large Platelets Not Reportable 02/24/19 05:52 Giant Platelets Not Reportable 02/24/19 05:52 Platelet Satelliting Not Reportable 02/24/19 05:52 Plt Morphology Comment Not Reportable 02/24/19 05:52 RBC Morphology Not Reportable 02/24/19 05:52 Dimorphic RBCs Not Reportable 02/24/19 05:52 Polychromasia Not Reportable 02/24/19 05:52 Hypochromasia Not Reportable 02/24/19 05:52 Poikilocytosis Not Reportable 02/24/19 05:52 Anisocytosis Not Reportable 02/24/19 05:52 Microcytosis Not Reportable 02/24/19 05:52 Macrocytosis Not Reportable 02/24/19 05:52 Spherocytes Not Reportable 02/24/19 05:52 Pappenheimer Bodies Not Reportable 02/24/19 05:52 Sickle Cells Not Reportable 02/24/19 05:52 Target Cells Not Reportable 02/24/19 05:52 Tear Drop Cells Not Reportable 02/24/19 05:52 Ovalocytes Not Reportable 02/24/19 05:52 Helmet Cells Not Reportable 02/24/19 05:52 Dexter-Bendon Bodies Not Reportable 02/24/19 05:52 [place] Rings Not Reportable 02/24/19 05:52 Chriss Cells Not Reportable 02/24/19 05:52 Bite Cells Not Reportable 02/24/19 05:52 Crenated Cell Not Reportable 02/24/19 05:52 Elliptocytes Not Reportable 02/24/19 05:52 Acanthocytes (Spur) Not Reportable 02/24/19 05:52 Rouleaux Not Reportable 02/24/19 05:52 Hemoglobin C Crystals Not Reportable 02/24/19 05:52 Schistocytes Not Reportable 02/24/19 05:52 Malaria parasites Not Reportable 02/24/19 05:52 Elmer Bodies Not Reportable 02/24/19 05:52 Hem Pathologist Commnt No 02/24/19 05:52 Sodium 139 mmol/L (137-145) 02/25/19 04:30 Potassium 3.8 mmol/L (3.6-5.0) 02/25/19 04:30 Chloride 106.6 mmol/L (98-107) 02/25/19 04:30 Carbon Dioxide 18 mmol/L (22-30) L 02/25/19 04:30 Anion Gap 18 mmol/L 02/25/19 04:30 BUN 30 mg/dL (9-20) H 02/25/19 04:30 Creatinine 1.7 mg/dL (0.8-1.5) H 02/25/19 04:30 Estimated GFR 53 ml/min 02/25/19 04:30 BUN/Creatinine Ratio 18 % 02/25/19 04:30 Glucose 108 mg/dL (75-100) H 02/25/19 04:30 POC Glucose 105 (70-105) 02/25/19 05:46 Hemoglobin A1c 5.7 % (4-6) 02/22/19 22:30 Lactic Acid 1.00 mmol/L (0.7-2.0) 02/22/19 14:34 Calcium 8.4 mg/dL (8.4-10.2) 02/25/19 04:30 Total Bilirubin 0.70 mg/dL (0.1-1.2) 02/22/19 12:31 AST 25 units/L (5-40) 02/22/19 12:31 ALT 22 units/L (7-56) 02/22/19 12:31 Alkaline Phosphatase 116 units/L (35-129) 02/22/19 12:31 Total Protein 8.1 g/dL (6.3-8.2) 02/22/19 12:31 Albumin 2.9 g/dL (3.9-5) L 02/22/19 12:31 Albumin/Globulin Ratio 0.6 % 02/22/19 12:31 Urine Color Yellow (Yellow) 02/22/19 Unknown Urine Turbidity Cloudy (Clear) 02/22/19 Unknown Urine pH 5.0 (5.0-7.0) 02/22/19 Unknown Ur Specific [place] 1.014 (1.003-1.030) 02/22/19 Unknown Urine Protein 100 mg/dl mg/dL (Negative) 02/22/19 Unknown Urine Glucose (UA) Neg mg/dL (Negative) 02/22/19 Unknown Urine Ketones Neg mg/dL (Negative) 02/22/19 Unknown Urine Blood Mod (Negative) 02/22/19 Unknown Urine Nitrite Neg (Negative) 02/22/19 Unknown Urine Bilirubin Neg (Negative) 02/22/19 Unknown Urine Urobilinogen 2.0 mg/dL (<2.0) 02/22/19 Unknown Ur Leukocyte Esterase Neg (Negative) 02/22/19 Unknown Urine WBC (Auto) 12.0 /HPF (0.0-6.0) H 02/22/19 Unknown Urine RBC (Auto) 3.0 /HPF (0.0-6.0) 02/22/19 Unknown U Epithel Cells (Auto) < 1.0 /HPF (0-13.0) 02/22/19 Unknown Urine Bacteria (Auto) 1+ /HPF (Negative) 02/22/19 Unknown Urine Mucus Few /HPF 02/22/19 Unknown Urine Yeast (Budding) 1+ /HPF 02/22/19 Unknown Random Vancomycin 9.1 ug/mL (0-40.0) 02/25/19 04:30 Blood Type O POSITIVE 02/22/19 14:34 Antibody Screen Negative 02/22/19 14:34 Active Medications - Current Medications Current Medications: Generic Name Dose Route Start Last Admin Trade Name Freq PRN Reason Stop Dose Admin Acetaminophen 650 mg 02/22/19 14:24 Tylenol PO Q6H PRN Pain, Mild (1-3) Acetaminophen/Hydrocodone Bitart 1 each 02/24/19 17:06 02/25/19 05:28 [place] 10/325 PO 1 each Q4H PRN Administration Pain , Severe (7-10) Sodium Chloride 1,000 mls @ 150 mls/hr 02/22/19 15:30 02/25/19 03:56 Nacl 0.9% 1000 Ml IV 150 mls/hr DIRECT RICA Administration Ceftriaxone Sodium 2 gm in 100 mls @ 200 mls/hr 02/22/19 17:00 02/24/19 10:38 Rocephin/Ns 2 Gm/100 Ml IV 200 mls/hr Q24HR RICA Administration Protocol Morphine Sulfate 2 mg 02/22/19 15:25 02/25/19 03:52 Morphine IV 2 mg Q4H PRN Administration Pain, Moderate (4-6) Nutrition/Malnutrition Assess - Dietary Evaluation Nutrition/Malnutrition Findings: Nutrition Notes Start: 02/23/19 10:19 Freq: Status: Active Protocol: Document 02/23/19 10:19 DENNIS (Rec: 02/23/19 10:29 [id number]) Nutrition Notes Need for Assessment generated from: MD Order Initial or Follow up Assessment Current Diagnosis Acute Kidney Injury,Diabetes Other Pertinent Diagnosis L medial thigh abscess Current Diet Renal diet Labs/Tests A1C: 5.7% * only lab from 02/23 Pertinent Medications NS at 150 ml/hr Height 5 ft 9 in Weight 90.7 kg Usual Body Weight 97.7 kg [place] Body Weight (kg) 72.72 BMI 29.5 Weight change and time frame Pt has lost 7% BW in unknown time period Subjective/Other Information MD consult for poor oral intake, MST screen. Pt stated he was nauseaous [employer] r/t pain from thigh abscess. Per pt, this resolved once he was provided with antibiotics. RD observed meal tray with 100% of food consumed. Pt stated he did not wish to recieve ONS, as his appetitie has returned. Percent of energy/protein needs met: 100% #1 Nutrition Diagnosis Inadequate oral intake Etiology Pain r/t left medial thigh abscess As Evidenced by Signs and Symptoms Pt report of 7% wt loss in unknown time period, pt report of decreased PO intake [employer]TE[employer] Is patient on ventilator? No Is Patient Ambulatory and/or Out of Bed No REE-([facility]-confined to bed) 2136.180 Kcal/Kg value to use for calculation 20 Approximate Energy Requirements Using 1814 kcal/Kg Calculation Used for Recommendations Kcal/kg Additional Notes PRO needs: 54-73g/day (0.6-0.8 g/kg) Fluid needs 1ml/kcal or per MD Nutrition Intervention Change Diet Order: Continue Renal Diet until acute renal failure is resolved. Goal #1 Pt to consume at least 75% of estimated energy and protein needs via PO intakes Anticipated Discharge Needs: Unknown at this time Follow-Up By: 02/25/19 Additional Comments F/u for stable intakes, kidney labs, need to adjust nutrition requirements
[2019-02-25] MEDS ORDERED: VANCOMYCIN 1,500 MG in SODIUM CHLORIDE 0.9% 500 ML 500 ML IV ONE (10:00)
--- NOTE | 2019-02-25 10:15 | Progress Note ---
Assessment and Plan Cultures: Blood cultures 02/22/2019 pending Urine cultures 02/22/2019 pending. [facility] cultures 02/23/2019 - S aureus A/P: 48 yo M PMHx DM2 presented to the hospital with cellulitis 1. Acute sepsis - present with tachycardia and leukocytosis, secondary to cellulitis 2. Cellulitis - was given Keflex as outpatient, which is a reasonable empiric therapy. Possible MRSA given non-response. Continue vancomycin. Cultures with Staph. Spontaneously draining 3. DM2 - tight glycemic control for best wound healing 4. CKD vs Vitaly - unclear baseline, decreased GFR. renally dose antibiotics as appropriate. Recs: - continue ceftriaxone 2g q24h - continue vancomycin dosed per pharmacy, goal trough 10-20. Subtherapeutic vanco trough. If unable to get therapeutic dosing will consider changing medications. - If no improvement in pain with above antibiotics, would repeat CT leg with contrast if possible in order to re-evaluate for abscess. - follow up MICs of Staph Thank you for the consult, we will continue to follow. Dorota Morrissey MD [facility] ([facility] M: [phone] O: [phone] F: [phone] Subjective Date of service: 02/25/19 Interval history: Afebrile, CBC increased slightly. Ongoing pain. Objective - Exam Narrative Exam: Constitutional: Alert, cooperative. No acute distress Head, Ears, Nose: Normocephalic, atraumatic. External ears, nose normal Eyes: Conjunctivae/corneas clear. No icterus. No ptosis. Neck: Supple, no meningeal signs Oral: dentition fair, no thrush Cardiovascular: S1, S2 normal. Respiratory: Good air entry, clear to auscultation bilaterally GI: Soft, non-tender; bowel sounds normal. No peritoneal signs. Musculoskeletal: No pedal edema, no cyanosis. Redness and severe tenderness of L medial thigh. No fluctuance felt. Large swelling of L leg. Skin: No rash or abscess Hem/Lymphatic: No palpable cervical or supraclavicular nodes. No lymphangitis Psych: Mood ok. Affect normal Neurological: Awake, alert, oriented. No gross abnormality - Constitutional Vitals: Vital Signs Temp Pulse Resp BP Pulse Ox 97.5 F L 90 20 149/91 98 02/25/19 05:38 01/16/20 05:38 02/25/19 05:38 02/25/19 05:38 02/25/19 05:38 Temperature -Last 24 Hours Temperature 97.5 F Temperature 99.7 F Temperature 99.5 F Temperature 98.1 F - Labs CBC & Chem 7: 02/25/19 04:30 02/25/19 04:30 Labs: Abnormal lab results 02/24/19 02/24/19 02/24/19 Range/Units 11:34 16:32 22:28 WBC (4.5-11.0) K/mm3 Hgb (11.8-15.2) gm/dl Hct (35.5-45.6) % Carbon Dioxide (22-30) mmol/L BUN (9-20) mg/dL Creatinine (0.8-1.5) mg/dL Glucose (75-100) mg/dL POC Glucose 110 H 124 H 110 H (70-105) 02/25/19 02/25/19 Range/Units 04:30 04:30 WBC 24.4 H (4.5-11.0) K/mm3 Hgb 11.3 L (11.8-15.2) gm/dl Hct 34.1 L (35.5-45.6) % Carbon Dioxide 18 L (22-30) mmol/L BUN 30 H (9-20) mg/dL Creatinine 1.7 H (0.8-1.5) mg/dL Glucose 108 H (75-100) mg/dL POC Glucose (70-105)
[2019-02-25] MEDS: cefTRIAXone/NS 2 GM/100 ML 2 GM/100 ML BAG IV SCH (10:24)
--- NOTE | 2019-02-25 10:40 | Progress Note ---
Assessment and Plan - Patient Problems (1) Cellulitis and abscess of left lower extremity Current Visit: No Status: Acute Plan to address problem: 1) Since leukocytosis is not improving, I believe an I&D of the left thigh abscess is indicated. This has been scheduled for tomorrow. 2) NPO after MN 3) Discussed with the pt who agrees. Subjective Date of service: 02/25/19 Patient Reports: Positive: no new complaints Objective Vital Signs - 12hr 02/24/19 02/25/19 02/25/19 23:14 05:38 10:33 Temperature 99.7 F H 97.5 F L Pulse Rate 93 H 90 Respiratory 20 20 Rate Respiratory 16 Rate [Left Thigh] Blood Pressure 135/77 149/91 O2 Sat by Pulse 96 98 Oximetry - Labs 02/25/19 04:30 02/25/19 04:30 Diabetes panel 02/25/19 Range/Units 04:30 Sodium 139 (137-145) mmol/L Potassium 3.8 (3.6-5.0) mmol/L Chloride 106.6 (98-107) mmol/L Carbon Dioxide 18 L (22-30) mmol/L BUN 30 H (9-20) mg/dL Creatinine 1.7 H (0.8-1.5) mg/dL Glucose 108 H (75-100) mg/dL Calcium 8.4 (8.4-10.2) mg/dL Calcium panel 02/25/19 Range/Units 04:30 Calcium 8.4 (8.4-10.2) mg/dL Pituitary panel 02/25/19 Range/Units 04:30 Sodium 139 (137-145) mmol/L Potassium 3.8 (3.6-5.0) mmol/L Chloride 106.6 (98-107) mmol/L Carbon Dioxide 18 L (22-30) mmol/L BUN 30 H (9-20) mg/dL Creatinine 1.7 H (0.8-1.5) mg/dL Glucose 108 H (75-100) mg/dL Calcium 8.4 (8.4-10.2) mg/dL Adrenal panel 02/25/19 Range/Units 04:30 Sodium 139 (137-145) mmol/L Potassium 3.8 (3.6-5.0) mmol/L Chloride 106.6 (98-107) mmol/L Carbon Dioxide 18 L (22-30) mmol/L BUN 30 H (9-20) mg/dL Creatinine 1.7 H (0.8-1.5) mg/dL Glucose 108 H (75-100) mg/dL Calcium 8.4 (8.4-10.2) mg/dL
--- NOTE | 2019-02-25 12:02 | Progress Note ---
Assessment and Plan # GHAZALA: creatinine 4.6 on admission->3.4->1.7 today. Suspect GHAZALA in setting of dehydration/pre renal injury and NSAID use. Urinalysis reviewed, does have some blood/WBCs. Imaging without acute obstruction. Do suspect that he may have some CKD given appearance of kidneys on ultrasound - for now, IVF prn and encourage po hydration. Will monitor for renal injury in setting of upcoming surgery/anesthesia - avoid nephrotoxins - renally dose meds - no indication for renal replacement therapy currently - daily labs # Acidosis: mild and improving, likely in setting of GHAZALA # HTN: BP reasonable off meds # Cellulitis: appreciate ID, surgery Thank you for this consult, we will continue to follow with you. Subjective Date of service: 02/25/19 Interval history: No acute events noted. Remains with pain in left thigh. Leukocytosis continues. Continues to have drainage noted. Notes normal urination. Objective - Exam Narrative Exam: General appearance: well-developed, well-nourished, appears stated age EENT: ATNC, PERRL Neck: Present: neck supple, trachea midline Respiratory: Clear to Ascultation Heart: regular, normal heart rate Gastrointestinal: Present: normoactive bowel sounds Integumentary: no rash, warm and dry, other (left thigh swelling/drainage noted) Neurologic: no focal deficit, no asterixis, alert and oriented x3, CN 3-12 intact Psychiatric: mood/affect appropriate - Vital Signs Vital signs: Vital Signs - 12hr 02/25/19 02/25/19 05:38 10:33 Temperature 97.5 F L Pulse Rate 90 Respiratory 20 Rate Respiratory 16 Rate [Left Thigh] Blood Pressure 149/91 O2 Sat by Pulse 98 Oximetry - Lab 02/25/19 04:30 02/25/19 04:30 Most recent lab results Calcium 8.4 mg/dL (8.4-10.2) 02/25/19 04:30 Medications & Allergies - Medications Allergies/Adverse Reactions: Allergies No Known Allergies Allergy (Unverified 02/19/19 07:26) Home Medications: Home Medications Medication Instructions Recorded Confirmed Last Taken Type Ibuprofen [Motrin 800 MG tab] 800 mg PO Q8HR PRN #30 tablet 02/19/19 02/24/19 02/22/19 08:00 Rx 800 mg cephALEXin [Keflex] 500 mg PO Q6HR #28 capsule 02/19/19 02/22/19 02/22/19 08:00 Rx 500 mg Active Medications: Generic Name Dose Route Start Last Admin Trade Name Freq PRN Reason Stop Dose Admin Acetaminophen 650 mg 02/22/19 14:24 Tylenol PO Q6H PRN Pain, Mild (1-3) Acetaminophen/Hydrocodone Bitart 1 each 02/24/19 17:06 02/25/19 05:28 [place] 10/325 PO 1 each Q4H PRN Administration Pain , Severe (7-10) Sodium Chloride 1,000 mls @ 150 mls/hr 02/22/19 15:30 02/25/19 03:56 Nacl 0.9% 1000 Ml IV 150 mls/hr DIRECT RICA Administration Ceftriaxone Sodium 2 gm in 100 mls @ 200 mls/hr 02/22/19 17:00 02/25/19 10:24 Rocephin/Ns 2 Gm/100 Ml IV 200 mls/hr Q24HR RICA Administration Protocol Vancomycin HCl 1,500 mg/ 530 mls @ 333.333 mls/hr 02/26/19 00:00 Sodium Chloride IV Q12H RICA Morphine Sulfate 2 mg 02/22/19 15:25 02/25/19 03:52 Morphine IV 2 mg Q4H PRN Administration Pain, Moderate (4-6)
--- NOTE | 2019-02-25 14:38 | Anesthesia Consultation ---
Anesthesia Consult and Med Hx Date of service: 02/25/19 - Airway Anesthetic Teeth Evaluation: Good ROM Head & Neck: Adequate Mental/Hyoid Distance: Adequate Mallampati Class: Class II Intubation Access Assessment: Probably Good - Pre-Operative Health Status ASA Pre-Surgery Classification: ASA2 Proposed Anesthetic Plan: General - Pulmonary Hx Asthma: No COPD: No Hx Pneumonia: No - Endocrine Hx Renal Disease: Yes (Acute kidney Injury, resolving) Hx End Stage Renal Disease: No - Additional Comments Anesthesia Medical History Comments: left thigh abcess
--- NOTE | 2019-02-25 14:43 | Anesthesia Day of Surgery ---
Anesthesia Day of Surgery - Day of Surgery Patient Examined: Yes Patient H&P Reviewed: Yes Patient is NPO: Yes
[2019-02-25] MEDS: VANCOMYCIN 1,500 MG in SODIUM CHLORIDE 0.9% 500 ML 500 ML IV SCH (23:59)
[2019-02-26 05:38] LABS: BUN/Creatinine Ratio 14; Blood Urea Nitrogen 21 mg/dL (9-20); Calcium 8.3 mg/dL (8.4-10.2); Hemolysis Index 1
[2019-02-26] MEDS: MORPHINE 2 MG/1 ML INJ IV PRN ×3 (06:42→22:53)
--- NOTE | 2019-02-26 09:40 | Progress Note ---
Assessment and Plan # GHAZALA: creatinine 4.6 on admission->3.4->1.7->1.5 today. Suspect GHAZALA in setting of dehydration/pre renal injury and NSAID use. Imaging without acute obstruction. Do suspect that he may have some CKD given appearance of kidneys on ultrasound - for now, IVF prn and encourage po hydration. Will monitor for renal injury in setting of upcoming surgery/anesthesia - avoid nephrotoxins - renally dose meds - no indication for renal replacement therapy currently - daily labs # Acidosis: mild and improving, likely in setting of GHAZALA # HTN: BP reasonable off meds # Cellulitis: appreciate ID, surgery Thank you for this consult, we will continue to follow with you. Subjective Date of service: 02/26/19 Interval history: No acute events noted. Sleeping well this AM, plan for surgery later. Continues to have drainage of wound noted. Notes normal urination. Objective - Exam Narrative Exam: General appearance: well-developed, well-nourished, appears stated age EENT: ATNC, PERRL Neck: Present: neck supple, trachea midline Respiratory: Clear to Ascultation Heart: regular, normal heart rate Gastrointestinal: Present: normoactive bowel sounds Integumentary: no rash, warm and dry, other (left thigh swelling/drainage noted) Neurologic: no focal deficit, no asterixis, alert and oriented x3, CN 3-12 int act Psychiatric: mood/affect appropriate - Vital Signs Vital signs: Vital Signs - 12hr 02/25/19 02/25/19 02/26/19 21:49 23:27 00:07 Temperature 99.3 F Pulse Rate 94 H Pulse Rate [ 78 Apical] Respiratory 16 20 16 Rate Blood Pressure 141/82 O2 Sat by Pulse 96 Oximetry 02/26/19 05:05 Temperature 98.3 F Pulse Rate 90 Pulse Rate [ Apical] Respiratory 20 Rate Blood Pressure 133/70 O2 Sat by Pulse 96 Oximetry - Lab 02/25/19 04:30 02/26/19 04:40 Most recent lab results Calcium 8.3 mg/dL (8.4-10.2) L 02/26/19 04:40 Medications & Allergies - Medications Allergies/Adverse Reactions: Allergies No Known Allergies Allergy (Unverified 02/19/19 07:26) Home Medications: Home Medications Medication Instructions Recorded Confirmed Last Taken Type Ibuprofen [Motrin 800 MG tab] 800 mg PO Q8HR PRN #30 tablet 02/19/19 02/24/19 02/22/19 08:00 Rx 800 mg cephALEXin [Keflex] 500 mg PO Q6HR #28 capsule 02/19/19 02/22/19 02/22/19 08:00 Rx 500 mg Active Medications: Generic Name Dose Route Start Last Admin Trade Name Freq PRN Reason Stop Dose Admin Acetaminophen 650 mg 02/22/19 14:24 Tylenol PO Q6H PRN Pain, Mild (1-3) Acetaminophen/Hydrocodone Bitart 1 each 02/24/19 17:06 02/25/19 05:28 [place] 10/325 PO 1 each Q4H PRN Administration Pain , Severe (7-10) Sodium Chloride 1,000 mls @ 150 mls/hr 02/22/19 15:30 02/25/19 21:56 Nacl 0.9% 1000 Ml IV 150 mls/hr DIRECT RICA Administration Ceftriaxone Sodium 2 gm in 100 mls @ 200 mls/hr 02/22/19 17:00 02/25/19 10:24 Rocephin/Ns 2 Gm/100 Ml IV 200 mls/hr Q24HR RICA Administration Protocol Vancomycin HCl 1,500 mg/ 530 mls @ 333.333 mls/hr 02/26/19 00:00 02/25/19 23:59 Sodium Chloride IV 333.333 mls/hr Q12H RICA Administration Morphine Sulfate 2 mg 02/22/19 15:25 02/26/19 06:42 Morphine IV 2 mg Q4H PRN Administration Pain, Moderate (4-6)
[2019-02-26] MEDS: cefTRIAXone/NS 2 GM/100 ML 2 GM/100 ML BAG IV SCH (11:23)
[2019-02-26] MEDS: SODIUM CHLORIDE 0.9% 1000 ML 1,000 ML IV SCH (11:27)
--- NOTE | 2019-02-26 11:34 | Progress Note ---
Assessment and Plan Cultures: Blood cultures 02/22/2019 pending Urine cultures 02/22/2019 pending. Thich cultures 02/23/2019 - MRSA A/P: 48 yo M PMHx DM2 presented to the hospital with cellulitis 1. Acute sepsis - present with tachycardia and leukocytosis, secondary to cellulitis 2. Cellulitis - was given Keflex as outpatient, which is a reasonable empiric t herapy. Possible MRSA given non-response. Continue vancomycin. Cultures with Staph. Spontaneously draining 3. DM2 - tight glycemic control for best wound healing 4. GHAZALA - improving. Renal dosing Recs: - continue ceftriaxone 2g q24h - continue vancomycin dosed per pharmacy, goal trough 10-20. Subtherapeutic vanco trough. If unable to get therapeutic dosing will consider changing medications. - If no improvement in pain with above antibiotics, would repeat CT leg with contrast if possible in order to re-evaluate for abscess. - follow up MICs of Staph - agree with plan for I&D by Dr. Hoffman. Thank you for the consult, we will continue to follow. Dorota Morrissey MD [facility] ([facility]) M: [phone] O: [phone] F: [phone] Subjective Date of service: 02/26/19 Interval history: No fevers, ongoing pain. Scheduled for I&D today Objective - Exam Narrative Exam: Constitutional: Alert, cooperative. No acute distress Head, Ears, Nose: Normocephalic, atraumatic. External ears, nose normal Eyes: Conjunctivae/corneas clear. No icterus. No ptosis. Neck: Supple, no meningeal signs Oral: dentition fair, no thrush Cardiovascular: S1, S2 normal. Respiratory: Good air entry, clear to auscultation bilaterally GI: Soft, non-tender; bowel sounds normal. No peritoneal signs. Musculoskeletal: No pedal edema, no cyanosis. Redness and severe tenderness of L medial thigh. No fluctuance felt. Large swelling of L leg. Drainage site mid leg Skin: No rash or abscess Hem/Lymphatic: No palpable cervical or supraclavicular nodes. No lymphangitis Psych: Mood ok. Affect normal Neurological: Awake, alert, oriented. No gross abnormality - Constitutional Vitals: Vital Signs Temp Pulse Resp BP Pulse Ox 98.3 F 90 20 133/70 96 01/17/20 05:05 02/26/19 05:05 02/26/19 05:05 02/26/19 05:05 02/26/19 05:05 Temperature -Last 24 Hours Temperature 98.3 F Temperature 99.3 F Temperature 100.0 F Temperature 98.7 F - Labs CBC & Chem 7: 02/25/19 04:30 02/26/19 04:40 Labs: Abnormal lab results 02/26/19 Range/Units 04:40 Carbon Dioxide 21 L (22-30) mmol/L BUN 21 H (9-20) mg/dL Glucose 103 H (75-100) mg/dL Calcium 8.3 L (8.4-10.2) mg/dL
[2019-02-26] MEDS: VANCOMYCIN 1,500 MG in SODIUM CHLORIDE 0.9% 500 ML 500 ML IV SCH (13:00)
[2019-02-26] MEDS ORDERED: HYDROmorphone 1 MG/1 ML INJ ONE ×2 (13:25→15:37)
[2019-02-26] MEDS ORDERED: PROPOFOL 200 MG/20 ML VIAL IV ONE (13:25)
[2019-02-26] MEDS ORDERED: LIDOCAINE MPF (2%) 20 MG/1 ML VIAL 5 ML ONE (13:30)
[2019-02-26] MEDS ORDERED: MIDAZOLAM 2 MG/2 ML INJ IV NR (14:00)
[2019-02-26] MEDS ORDERED: FAMOTIDINE 20 MG/2 ML INJ IV NR (14:00)
[2019-02-26] MEDS ORDERED: SODIUM CHLORIDE 0.9% IRR 1,500 ML BOTTLE IR ONE (15:30)
[2019-02-26] MEDS ORDERED: ONDANSETRON 4 MG/2 ML INJ ONE (15:37)
[2019-02-26] MEDS ORDERED: SODIUM CHLORIDE 0.9% 1000 ML 1,000 ML ONE (15:44)
--- NOTE | 2019-02-26 15:50 | Procedure Note ---
Date of procedure: 02/26/19 Pre-op diagnosis: Left thigh abscess Post-op diagnosis: same (Deep and extensive) Procedure: I&D of deep, extensive left thigh abscess Description of procedure: Pt was placed supine on the OR table. General anesthesia was administered. Left thigh was prepped and draped. A probe was then used to determine the extent of the abscess. The skin and SQ tissue over the abscess cavity was divided with the Bovie. Bleeding was controlled with the Bovie and suture ligatures of 2-0 silk. The cavity extended medially to adjacent to the scrotum and medially to the mid-inner thigh. The saphenous vein had to be divided to obtain adequate drainage of the abscess and was ligated with ties of 2-0 silk. The pulse lavage was then used to irrigate and debride the abscess cavity. Additional infected and necrotic tissue was excised with scissors and the Bovie. Wound was then packed open with 3 dry Kerlix rolls which were tied together so as not to lose a roll within the wound. Final wound measurements were 15 X 23 X 4 cm. Pt tolerated the procedure well. He was taken to PACU in stable condition. Anesthesia: JOSE ENRIQUEA Surgeon: MC OSBORN Estimated blood loss: other (200 ml) Pathology: list (C&S) Specimen disposition: to lab Condition: stable Disposition: PACU
--- NOTE | 2019-02-26 16:15 | Progress Note ---
Assessment and Plan Assessment and plan: Patient is a 48-year-old man without known medical problems who [facility] with worsening [facility] thigh infection. He was initially seen here in the ED 3 days ago prior this admission and was discharged from ED on antibiotics. * CT of the lower extremity shows subcutaneous edema. No clear abscess noted (without contrast however) MRSA Left thigh cellulitis/abscess: s/p manual drainage by Wound care, no culture taken, now afebrile and WBC back up, I called back Dr. Hoffman, excisional I-n-D tomorrow Drop in H/H after drainage of abscess on 02/23/18 (he had copious amounts of bloody discharge from left thigh abscess after drainage): monitor closely Sepsis, poa due to left thigh abscess: treat with IV abx Acute kidney injury likely secondary to vasomotor nephropathy could also have an underlying CKD; tremendously improved today, Cr went from 3.4-->1.7-->1.5, cons ulted Nephrology, input greatly appreciated, continue to monitor closely Hypertension: low salt diet Metabolic acidosis: consult Nephrology DVT ppx: hold anticoagulation due to bloody discharge from left thigh abscess OR today History Interval history: Patient was seen and examined prior to Surgery, i also spoke with Dr. Hoffman. He believe it to be draining enough, but I had called and asked him to re-c onsider deep excisional drainage and since patient WBC was not improving, he scheduled him for surgery today. Follow-up on current diagnosis of left thigh infection. Overnight uneventful as no events directly reported to me. Patient denies any chest pain, shortness breath, nausea/vomiting or severe headaches. Imaging, nursing note, chart, labs and old chart reviewed. Discussed with patient. Hospitalist Physical - Physical exam Narrative exam: Gen: WDWN, NAD, Awake, Alert, Orientated HEENT: NCAT, EOMI, PERRL, OP Clear Neck: supple, no adenopathy, no thyromegaly, no JVD CVS/Heart: RRR, normal S1S2, pulses present bilaterally Chest/Lungs: CTA B, Symmetrical chest expansion, good air entry bilaterally GI/Abdomen: soft, NTND, good bowel sounds, no guarding or rebound /Bladder: no suprapubic tenderness, no CVA or paraspinal tenderness Extermity/Skin: anterior Left thigh red, indurated, warm and tender. It is draining sero-purulent drainage at the time of this assessment. MSK: FROM x 4 Neuro: CN 2-12 grossly intact, no new focal deficits Psych: calm - Constitutional Vitals: Temp Pulse Resp BP Pulse Ox 100.3 F H 93 H 20 149/94 98 02/26/19 15:52 02/26/19 16:07 02/26/19 16:07 02/26/19 16:07 02/26/19 16:07 Results - Labs CBC & Chem 7: 02/25/19 04:30 02/26/19 04:40 Labs: Laboratory Last Values WBC 24.4 K/mm3 (4.5-11.0) H 02/25/19 04:30 RBC 3.88 M/mm3 (3.65-5.03) 02/25/19 04:30 Hgb 11.3 gm/dl (11.8-15.2) L 02/25/19 04:30 Hct 34.1 % (35.5-45.6) L 02/25/19 04:30 MCV 88 fl (84-94) 02/25/19 04:30 MCH 29 pg (28-32) 02/25/19 04:30 MCHC 33 % (32-34) 02/25/19 04:30 RDW 13.9 % (13.2-15.2) 02/25/19 04:30 Plt Count 271 K/mm3 (140-440) 02/25/19 04:30 Add Manual Diff Complete 02/24/19 05:52 Total Counted 100 02/24/19 05:52 Seg Neuts % (Manual) 80.0 % (40.0-70.0) H 02/24/19 05:52 Band Neutrophils % 7.0 % 02/24/19 05:52 Lymphocytes % (Manual) 6.0 % (13.4-35.0) L 02/24/19 05:52 Reactive Lymphs % (Man) 0 % 02/24/19 05:52 Monocytes % (Manual) 6.0 % (0.0-7.3) 02/24/19 05:52 Eosinophils % (Manual) 0 % (0.0-4.3) 02/24/19 05:52 Basophils % (Manual) 0 % (0.0-1.8) 02/24/19 05:52 Metamyelocytes % 1.0 % 02/24/19 05:52 Myelocytes % 0 % 02/24/19 05:52 Promyelocytes % 0 % 02/24/19 05:52 Blast Cells % 0 % 02/24/19 05:52 Nucleated RBC % Not Reportable 02/24/19 05:52 Seg Neutrophils # Man 18.3 K/mm3 (1.8-7.7) H 02/24/19 05:52 Band Neutrophils # 1.6 K/mm3 02/24/19 05:52 Lymphocytes # (Manual) 1.4 K/mm3 (1.2-5.4) 02/24/19 05:52 Abs React Lymphs (Man) 0.0 K/mm3 02/24/19 05:52 Monocytes # (Manual) 1.4 K/mm3 (0.0-0.8) H 02/24/19 05:52 Eosinophils # (Manual) 0.0 K/mm3 (0.0-0.4) 02/24/19 05:52 Basophils # (Manual) 0.0 K/mm3 (0.0-0.1) 02/24/19 05:52 Metamyelocytes # 0.2 K/mm3 02/24/19 05:52 Myelocytes # 0.0 K/mm3 02/24/19 05:52 Promyelocytes # 0.0 K/mm3 02/24/19 05:52 Blast Cells # 0.0 K/mm3 02/24/19 05:52 WBC Morphology Not Reportable 02/24/19 05:52 Hypersegmented Neuts Not Reportable 02/24/19 05:52 Hyposegmented Neuts Not Reportable 02/24/19 05:52 Hypogranular Neuts Not Reportable 02/24/19 05:52 Smudge Cells Not Reportable 02/24/19 05:52 Toxic Granulation Not Reportable 02/24/19 05:52 Toxic Vacuolation Not Reportable 02/24/19 05:52 Dohle Bodies Not Reportable 02/24/19 05:52 Pelger-Huet Anomaly Not Reportable 02/24/19 05:52 Rani Rods Not Reportable 02/24/19 05:52 Platelet Estimate Consistent w auto 02/24/19 05:52 Clumped Platelets Not Reportable 02/24/19 05:52 Plt Clumps, EDTA Not Reportable 02/24/19 05:52 Large Platelets Not Reportable 02/24/19 05:52 Giant Platelets Not Reportable 02/24/19 05:52 Platelet Satelliting Not Reportable 02/24/19 05:52 Plt Morphology Comment Not Reportable 02/24/19 05:52 RBC Morphology Not Reportable 02/24/19 05:52 Dimorphic RBCs Not Reportable 02/24/19 05:52 Polychromasia Not Reportable 02/24/19 05:52 Hypochromasia Not Reportable 02/24/19 05:52 Poikilocytosis Not Reportable 02/24/19 05:52 Anisocytosis Not Reportable 02/24/19 05:52 Microcytosis Not Reportable 02/24/19 05:52 Macrocytosis Not Reportable 02/24/19 05:52 Spherocytes Not Reportable 02/24/19 05:52 Pappenheimer Bodies Not Reportable 02/24/19 05:52 Sickle Cells Not Reportable 02/24/19 05:52 Target Cells Not Reportable 02/24/19 05:52 Tear Drop Cells Not Reportable 02/24/19 05:52 Ovalocytes Not Reportable 02/24/19 05:52 Helmet Cells Not Reportable 02/24/19 05:52 [place] Bodies Not Reportable 02/24/19 05:52 [place] Rings Not Reportable 02/24/19 05:52 [place] Cells Not Reportable 02/24/19 05:52 Bite Cells Not Reportable 02/24/19 05:52 Crenated Cell Not Reportable 02/24/19 05:52 Elliptocytes Not Reportable 02/24/19 05:52 Acanthocytes (Spur) Not Reportable 02/24/19 05:52 Rouleaux Not Reportable 02/24/19 05:52 Hemoglobin C Crystals Not Reportable 02/24/19 05:52 Schistocytes Not Reportable 02/24/19 05:52 Malaria parasites Not Reportable 02/24/19 05:52 [place] Bodies Not Reportable 02/24/19 05:52 Hem Pathologist Commnt No 02/24/19 05:52 Sodium 141 mmol/L (137-145) 02/26/19 04:40 Potassium 4.1 mmol/L (3.6-5.0) 02/26/19 04:40 Chloride 106.5 mmol/L (98-107) 02/26/19 04:40 Carbon Dioxide 21 mmol/L (22-30) L 02/26/19 04:40 Anion Gap 18 mmol/L 02/26/19 04:40 BUN 21 mg/dL (9-20) H 02/26/19 04:40 Creatinine 1.5 mg/dL (0.8-1.5) 02/26/19 04:40 Estimated GFR > 60 ml/min 02/26/19 04:40 BUN/Creatinine Ratio 14 % 02/26/19 04:40 Glucose 103 mg/dL (75-100) H 02/26/19 04:40 POC Glucose 94 (70-105) 02/25/19 11:42 Hemoglobin A1c 5.7 % (4-6) 02/22/19 22:30 Lactic Acid 1.00 mmol/L (0.7-2.0) 02/22/19 14:34 Calcium 8.3 mg/dL (8.4-10.2) L 02/26/19 04:40 Total Bilirubin 0.70 mg/dL (0.1-1.2) 02/22/19 12:31 AST 25 units/L (5-40) 02/22/19 12:31 ALT 22 units/L (7-56) 02/22/19 12:31 Alkaline Phosphatase 116 units/L (35-129) 02/22/19 12:31 Total Protein 8.1 g/dL (6.3-8.2) 02/22/19 12:31 Albumin 2.9 g/dL (3.9-5) L 02/22/19 12:31 Albumin/Globulin Ratio 0.6 % 02/22/19 12:31 Urine Color Yellow (Yellow) 02/22/19 Unknown Urine Turbidity Cloudy (Clear) 02/22/19 Unknown Urine pH 5.0 (5.0-7.0) 02/22/19 Unknown Ur Specific [place] 1.014 (1.003-1.030) 02/22/19 Unknown Urine Protein 100 mg/dl mg/dL (Negative) 02/22/19 Unknown Urine Glucose (UA) Neg mg/dL (Negative) 02/22/19 Unknown Urine Ketones Neg mg/dL (Negative) 02/22/19 Unknown Urine Blood Mod (Negative) 02/22/19 Unknown Urine Nitrite Neg (Negative) 02/22/19 Unknown Urine Bilirubin Neg (Negative) 02/22/19 Unknown Urine Urobilinogen 2.0 mg/dL (<2.0) 02/22/19 Unknown Ur Leukocyte Esterase Neg (Negative) 02/22/19 Unknown Urine WBC (Auto) 12.0 /HPF (0.0-6.0) H 02/22/19 Unknown Urine RBC (Auto) 3.0 /HPF (0.0-6.0) 02/22/19 Unknown U Epithel Cells (Auto) < 1.0 /HPF (0-13.0) 02/22/19 Unknown Urine Bacteria (Auto) 1+ /HPF (Negative) 02/22/19 Unknown Urine Mucus Few /HPF 02/22/19 Unknown Urine Yeast (Budding) 1+ /HPF 02/22/19 Unknown Random Vancomycin 9.1 ug/mL (0-40.0) 02/25/19 04:30 Blood Type O POSITIVE 02/22/19 14:34 Antibody Screen Negative 02/22/19 14:34 Active Medications - Current Medications Current Medications: Generic Name Dose Route Start Last Admin Trade Name Freq PRN Reason Stop Dose Admin Acetaminophen 650 mg 02/22/19 14:24 Tylenol PO Q6H PRN Pain, Mild (1-3) Acetaminophen/Hydrocodone Bitart 1 each 02/24/19 17:06 02/25/19 05:28 Shelly 10/325 PO 1 each Q4H PRN Administration Pain , Severe (7-10) Famotidine 20 mg 02/26/19 14:00 02/26/19 14:05 Pepcid IV 02/26/19 23:59 20 mg PREOP NR Administration Sodium Chloride 1,000 mls @ 150 mls/hr 02/22/19 15:30 02/26/19 11:27 Nacl 0.9% 1000 Ml IV 150 mls/hr DIRECT RICA Administration Ceftriaxone Sodium 2 gm in 100 mls @ 200 mls/hr 02/22/19 17:00 02/26/19 11:23 Rocephin/Ns 2 Gm/100 Ml IV 200 mls/hr Q24HR RICA Administration Protocol Vancomycin HCl 1,500 mg/ 530 mls @ 333.333 mls/hr 02/26/19 00:00 02/26/19 13:00 Sodium Chloride IV 333.333 mls/hr Q12H RICA Administration Midazolam HCl 2 mg 02/26/19 14:00 02/26/19 14:07 Versed IV 02/26/19 23:59 2 mg PREOP NR Administration Morphine Sulfate 2 mg 02/22/19 15:25 02/26/19 06:42 Morphine IV 2 mg Q4H PRN Administration Pain, Moderate (4-6) Nutrition/Malnutrition Assess - Dietary Evaluation Nutrition/Malnutrition Findings: Nutrition Notes Start: 02/23/19 10:19 Freq: Status: Active Protocol: Document 02/25/19 11:20 KS (Rec: 02/25/19 11:33 KS [id number]) Co-Sign 02/25/19 11:20 LP Nutrition Notes Initial or Follow up Reassessment Current Diagnosis Acute Kidney Injury,Diabetes Other Pertinent Diagnosis L medial thigh abscess Current Diet Renal diet Labs/Tests BUN 30 Cr 1.7 BG 108 Pertinent Medications NS at 150 ml/hr Height 5 ft 9 in Weight 90.7 kg [place] Body Weight (kg) 72.72 BMI 29.5 Subjective/Other Information Pt reports consistently eating all of his meals and feels he is not getting enough food. Pt was brought Nepro today and was informed of the role of ONS. Pt reports feeling nauseous after taking medications but that it tends to quickly subside. Percent of energy/protein needs met: 100%/100% Current % PO Good (75-100%) Minimum of two criteria No physical signs of malnutrition #1 Nutrition Diagnosis Inadequate oral intake As Evidenced by Signs and Symptoms Pt eating 100% of meals Diagnosis Progress(for reassessment Improved documentation) Is patient on ventilator? No Is Patient Ambulatory and/or Out of Bed Yes REE-([place]-St. Jeor-ambulatory/OOB) [ 2310.594 NUTR.[id number]] Kcal/Kg value to use for calculation 22 Approximate Energy Requirements Using 1995 kcal/Kg Calculation Used for Recommendations Kcal/kg Additional Notes PRO needs: 73-108g/day (0.8-1. 2 g/kg) Fluid needs 1ml/kcal or per MD Nutrition Intervention Change Diet Order: Continue Renal Diet until acute renal failure is resolved. Add double portions. Goal #1 Continue to meet at least 75% of estimated energy and protein needs via PO intakes Anticipated Discharge Needs: Unknown at this time Follow-Up By: 03/04/19 Additional Comments F/u for intakes, kidney labs
[2019-02-26 23:58] LABS: BUN/Creatinine Ratio 13; Blood Urea Nitrogen 20 mg/dL (9-20); Calcium 8.2 mg/dL (8.4-10.2); Hemolysis Index 7
[2019-02-27] MEDS: VANCOMYCIN 1,500 MG in SODIUM CHLORIDE 0.9% 500 ML 500 ML IV SCH ×3 (00:41→23:15)
[2019-02-27] MEDS: SODIUM CHLORIDE 0.9% 1000 ML 1,000 ML IV SCH ×3 (00:42→23:12)
[2019-02-27 07:54] LABS: Hematocrit 32.1 % (35.5-45.6); Hemoglobin 10.5 gm/dl (11.8-15.2); Mean Corpuscular HGB Conc 33 % (32-34); Mean Corpuscular Volume 87 fl (84-94); Platelet Count 267 K/mm3 (140-440); Red Blood Count 3.67 M/mm3 (3.65-5.03); Red Cell Distribution Width 13.7 % (13.2-15.2)
[2019-02-27 08:27] LABS: Basophils # (Auto) 0.1 K/mm3 (0.0-0.1); Eosinophils # (Auto) 0.3 K/mm3 (0.0-0.4); Eosinophils % (Auto) 1.1 % (0.0-4.3); Monocytes # (Auto) 1.4 K/mm3 (0.0-0.8); Monocytes % (Auto) 5.8 % (0.0-7.3)
[2019-02-27] MEDS: HYDROcodone/ACETAMINOPHEN 10-325MG TAB PO PRN (09:34)
[2019-02-27] MEDS: cefTRIAXone/NS 2 GM/100 ML 2 GM/100 ML BAG IV SCH (09:34)
[2019-02-27 09:45] LABS: Band Neutrophils # (Manual) 0.5 K/mm3; Basophils % (Manual) 0 % (0.0-1.8); Myelocytes # (Manual) 0.5 K/mm3; Promyelocytes # (Manual) 0.2 K/mm3; Total Cells Counted 100
[2019-02-27 09:47] LABS: Giant Platelets Few; Platelet Estimate Consistent w Auto; RBC Morphology Normal
[2019-02-27] MEDS: MORPHINE 2 MG/1 ML INJ IV PRN ×2 (12:21→16:44)
--- NOTE | 2019-02-27 12:46 | Progress Note ---
Assessment and Plan # GHAZALA: creatinine 4.6 on admission->3.4->1.7->1.5 . Suspect GHAZALA in setting of dehydration/pre renal injury and NSAID use. Imaging without acute obstruction. Do suspect that he may have some CKD given appearance of kidneys on ultrasound - for now, IVF prn and encourage po hydration. Will monitor for renal function - avoid nephrotoxins - renally dose meds - no indication for renal replacement therapy currently - daily labs # Acidosis: mild and improving, likely in setting of GHAZALA # HTN: BP reasonable off meds # Cellulitis: Status post I&D as well as debridement of this left thigh abscess on 02/26/2019 Subjective Date of service: 02/27/19 Interval history: Patient is comfortable today. Status post surgery for his abscess in left eye. Objective - Vital Signs Vital signs: Vital Signs - 12hr 02/27/19 05:22 Temperature 98.6 F Pulse Rate 96 H Respiratory 18 Rate Blood Pressure 151/80 O2 Sat by Pulse 94 Oximetry - General Appearance General appearance: well-developed, well-nourished, appears stated age EENT: PERRL, mucous membranes moist Neck: no JVD, no thyromegaly, no carotid bruit, supple Respiratory: Present: Clear to Ascultation Cardiology: regular, normal heart rate, S1S2, no murmurs Gastrointestinal: normal, normoactive bowel sounds Integumentary: other (dressing noted in his left thigh) - Lab 02/27/19 07:32 02/26/19 23:06 Most recent lab results Calcium 8.2 mg/dL (8.4-10.2) L 02/26/19 23:06 Medications & Allergies - Medications Allergies/Adverse Reactions: Allergies No Known Allergies Allergy (Unverified 02/19/19 07:26) Home Medications: Home Medications Medication Instructions Recorded Confirmed Last Taken Type Ibuprofen [Motrin 800 MG tab] 800 mg PO Q8HR PRN #30 tablet 02/19/19 02/24/19 02/22/19 08:00 Rx 800 mg cephALEXin [Keflex] 500 mg PO Q6HR #28 capsule 02/19/19 02/22/19 02/22/19 08:00 Rx 500 mg Active Medications: Generic Name Dose Route Start Last Admin Trade Name Freq PRN Reason Stop Dose Admin Acetaminophen 650 mg 01/13/20 14:24 Tylenol PO Q6H PRN Pain, Mild (1-3) Acetaminophen/Hydrocodone Bitart 1 each 02/24/19 17:06 02/27/19 09:34 [place] 10/325 PO 1 each Q4H PRN Administration Pain , Severe (7-10) Sodium Chloride 1,000 mls @ 150 mls/hr 02/22/19 15:30 02/27/19 09:35 Nacl 0.9% 1000 Ml IV 150 mls/hr DIRECT RICA Administration Ceftriaxone Sodium 2 gm in 100 mls @ 200 mls/hr 02/22/19 17:00 02/27/19 09:34 Rocephin/Ns 2 Gm/100 Ml IV 200 mls/hr Q24HR RICA Administration Protocol Vancomycin HCl 1,500 mg/ 530 mls @ 333.333 mls/hr 02/26/19 00:00 02/27/19 00:41 Sodium Chloride IV 333.333 mls/hr Q12H RICA Administration Morphine Sulfate 2 mg 02/22/19 15:25 02/27/19 12:21 Morphine IV 2 mg Q4H PRN Administration Pain, Moderate (4-6)
--- NOTE | 2019-02-27 15:21 | Progress Note ---
Assessment and Plan Assessment and plan: Patient is a 48-year-old man without known medical problems who presented to [facility] ED with worsening left thigh infection. He was initially seen here in the ED 3 days ago prior this admission and was discharged from ED on antibiotics. * CT of the lower extremity shows subcutaneous edema. No clear abscess noted (without contrast however) MRSA Left thigh cellulitis/abscess: s/p excisional I-n-D 02/26/2019 Drop in H/H after drainage of abscess on 02/23/18 (he had copious amounts of bloody discharge from left thigh abscess after drainage): monitor closely Sepsis, poa due to left thigh abscess: treat with IV abx Acute kidney injury likely secondary to vasomotor nephropathy could also have an underlying CKD; tremendously improved Cr went from 3.4-->1.7-->1.5, consulted Nephrology, input greatly appreciated, continue to monitor closely Hypertension: low salt diet Metabolic acidosis: consult Nephrology DVT ppx: hold anticoagulation due to bloody discharge from left thigh abscess History Interval history: Patient was seen and examined prior to Surgery, i also spoke with Dr. Hoffman. He believe it to be draining enough, but I had called and asked him to re- consider deep excisional drainage and since patient WBC was not improving, he scheduled him for surgery today. Follow-up on current diagnosis of left thigh infection. Overnight uneventful as no events directly reported to me. Patient denies any chest pain, shortness breath, nausea/vomiting or severe headaches. Imaging, nursing note, chart, labs and old chart reviewed. Discussed with patient. Hospitalist Physical - Physical exam Narrative exam: Gen: WDWN, NAD, Awake, Alert, Orientated HEENT: NCAT, EOMI, PERRL, OP Clear Neck: supple, no adenopathy, no thyromegaly, no JVD CVS/Heart: RRR, normal S1S2, pulses present bilaterally Chest/Lungs: CTA B, Symmetrical chest expansion, good air entry bilaterally GI/Abdomen: soft, NTND, good bowel sounds, no guarding or rebound /Bladder: no suprapubic tenderness, no CVA or paraspinal tenderness Extermity/Skin: anterior Left thigh red, indurated, warm and tender. It is draining sero-purulent drainage at the time of this assessment. MSK: FROM x 4 Neuro: CN 2-12 grossly intact, no new focal deficits Psych: calm - Constitutional Vitals: Temp Pulse Resp BP Pulse Ox 97.6 F 92 H 18 140/88 94 02/27/19 12:37 02/27/19 12:37 02/27/19 12:37 02/27/19 12:37 02/27/19 12:37 Results - Labs CBC & Chem 7: 02/27/19 07:32 02/26/19 23:06 Labs: Laboratory Last Values WBC 24.0 K/mm3 (4.5-11.0) H 02/27/19 07:32 RBC 3.67 M/mm3 (3.65-5.03) 02/27/19 07:32 Hgb 10.5 gm/dl (11.8-15.2) L 02/27/19 07:32 Hct 32.1 % (35.5-45.6) L 02/27/19 07:32 MCV 87 fl (84-94) 02/27/19 07:32 MCH 29 pg (28-32) 02/27/19 07:32 MCHC 33 % (32-34) 02/27/19 07:32 RDW 13.7 % (13.2-15.2) 02/27/19 07:32 Plt Count 267 K/mm3 (140-440) 02/27/19 07:32 [place] % (Auto) 5.8 % (0.0-7.3) 02/27/19 07:32 Eos % (Auto) 1.1 % (0.0-4.3) 02/27/19 07:32 [place] # 1.4 K/mm3 (0.0-0.8) H 02/27/19 07:32 Eos # 0.3 K/mm3 (0.0-0.4) 02/27/19 07:32 Baso # 0.1 K/mm3 (0.0-0.1) 02/27/19 07:32 Add Manual Diff Complete 02/27/19 07:32 Total Counted 100 02/27/19 07:32 Seg Neutrophils % 85.2 % (40.0-70.0) H 02/27/19 07:32 Seg Neuts % (Manual) 76.0 % (40.0-70.0) H 02/27/19 07:32 Band Neutrophils % 2.0 % 02/27/19 07:32 Lymphocytes % (Manual) 11.0 % (13.4-35.0) L 02/27/19 07:32 Reactive Lymphs % (Man) 0 % 02/27/19 07:32 Monocytes % (Manual) 4.0 % (0.0-7.3) 02/27/19 07:32 Eosinophils % (Manual) 2.0 % (0.0-4.3) 02/27/19 07:32 Basophils % (Manual) 0 % (0.0-1.8) 02/27/19 07:32 Metamyelocytes % 2.0 % 02/27/19 07:32 Myelocytes % 2.0 % 02/27/19 07:32 Promyelocytes % 1.0 % 02/27/19 07:32 Blast Cells % 0 % 02/27/19 07:32 Nucleated RBC % Not Reportable 02/27/19 07:32 Seg Neutrophils # 20.2 K/mm3 (1.8-7.7) H 02/27/19 07:32 Seg Neutrophils # Man 18.2 K/mm3 (1.8-7.7) H 02/27/19 07:32 Band Neutrophils # 0.5 K/mm3 02/27/19 07:32 Lymphocytes # (Manual) 2.6 K/mm3 (1.2-5.4) 02/27/19 07:32 Abs React Lymphs (Man) 0.0 K/mm3 02/27/19 07:32 Monocytes # (Manual) 1.0 K/mm3 (0.0-0.8) H 02/27/19 07:32 Eosinophils # (Manual) 0.5 K/mm3 (0.0-0.4) H 02/27/19 07:32 Basophils # (Manual) 0.0 K/mm3 (0.0-0.1) 02/27/19 07:32 Metamyelocytes # 0.5 K/mm3 02/27/19 07:32 Myelocytes # 0.5 K/mm3 02/27/19 07:32 Promyelocytes # 0.2 K/mm3 02/27/19 07:32 Blast Cells # 0.0 K/mm3 02/27/19 07:32 WBC Morphology Not Reportable 02/27/19 07:32 Hypersegmented Neuts Not Reportable 02/27/19 07:32 Hyposegmented Neuts Not Reportable 02/27/19 07:32 Hypogranular Neuts Not Reportable 02/27/19 07:32 Smudge Cells Not Reportable 02/27/19 07:32 Toxic Granulation Not Reportable 02/27/19 07:32 Toxic Vacuolation Not Reportable 02/27/19 07:32 Dohle Bodies Not Reportable 02/27/19 07:32 [place]uet Anomaly Not Reportable 02/27/19 07:32 Rani Rods Not Reportable 02/27/19 07:32 Platelet Estimate Consistent w auto 02/27/19 07:32 Clumped Platelets Not Reportable 02/27/19 07:32 Plt Clumps, EDTA Not Reportable 02/27/19 07:32 Large Platelets Not Reportable 02/27/19 07:32 Giant Platelets Few 02/27/19 07:32 Platelet Satelliting Not Reportable 02/27/19 07:32 Plt Morphology Comment Not Reportable 02/27/19 07:32 RBC Morphology Normal 02/27/19 07:32 Dimorphic RBCs Not Reportable 02/27/19 07:32 Polychromasia Not Reportable 02/27/19 07:32 Hypochromasia Not Reportable 02/27/19 07:32 Poikilocytosis Not Reportable 02/27/19 07:32 Anisocytosis Not Reportable 02/27/19 07:32 Microcytosis Not Reportable 02/27/19 07:32 Macrocytosis Not Reportable 02/27/19 07:32 Spherocytes Not Reportable 02/27/19 07:32 Pappenheimer Bodies Not Reportable 02/27/19 07:32 Sickle Cells Not Reportable 02/27/19 07:32 Target Cells Not Reportable 02/27/19 07:32 Tear Drop Cells Not Reportable 02/27/19 07:32 Ovalocytes Not Reportable 02/27/19 07:32 Helmet Cells Not Reportable 02/27/19 07:32 [place] Bodies Not Reportable 02/27/19 07:32 [place] Rings Not Reportable 02/27/19 07:32 [place] Cells Not Reportable 02/27/19 07:32 Bite Cells Not Reportable 02/27/19 07:32 Crenated Cell Not Reportable 02/27/19 07:32 Elliptocytes Not Reportable 02/27/19 07:32 Acanthocytes (Spur) Not Reportable 02/27/19 07:32 Rouleaux Not Reportable 02/27/19 07:32 Hemoglobin C Crystals Not Reportable 02/27/19 07:32 Schistocytes Not Reportable 02/27/19 07:32 Malaria parasites Not Reportable 02/27/19 07:32 [place] Bodies Not Reportable 02/27/19 07:32 Hem Pathologist Commnt No 02/27/19 07:32 Sodium 139 mmol/L (137-145) 02/26/19 23:06 Potassium 3.9 mmol/L (3.6-5.0) 02/26/19 23:06 Chloride 104.9 mmol/L (98-107) 02/26/19 23:06 Carbon Dioxide 20 mmol/L (22-30) L 02/26/19 23:06 Anion Gap 18 mmol/L 02/26/19 23:06 BUN 20 mg/dL (9-20) 02/26/19 23:06 Creatinine 1.5 mg/dL (0.8-1.5) 02/26/19 23:06 Estimated GFR > 60 ml/min 02/26/19 23:06 BUN/Creatinine Ratio 13 % 02/26/19 23:06 Glucose 149 mg/dL (75-100) H 02/26/19 23:06 POC Glucose 94 (70-105) 02/25/19 11:42 Hemoglobin A1c 5.7 % (4-6) 02/22/19 22:30 Lactic Acid 1.00 mmol/L (0.7-2.0) 02/22/19 14:34 Calcium 8.2 mg/dL (8.4-10.2) L 02/26/19 23:06 Total Bilirubin 0.70 mg/dL (0.1-1.2) 02/22/19 12:31 AST 25 units/L (5-40) 02/22/19 12:31 ALT 22 units/L (7-56) 02/22/19 12:31 Alkaline Phosphatase 116 units/L (35-129) 02/22/19 12:31 Total Protein 8.1 g/dL (6.3-8.2) 02/22/19 12:31 Albumin 2.9 g/dL (3.9-5) L 02/22/19 12:31 Albumin/Globulin Ratio 0.6 % 02/22/19 12:31 Urine Color Yellow (Yellow) 02/22/19 Unknown Urine Turbidity Cloudy (Clear) 02/22/19 Unknown Urine pH 5.0 (5.0-7.0) 02/22/19 Unknown Ur Specific [place] 1.014 (1.003-1.030) 02/22/19 Unknown Urine Protein 100 mg/dl mg/dL (Negative) 02/22/19 Unknown Urine Glucose (UA) Neg mg/dL (Negative) 02/22/19 Unknown Urine Ketones Neg mg/dL (Negative) 02/22/19 Unknown Urine Blood Mod (Negative) 02/22/19 Unknown Urine Nitrite Neg (Negative) 02/22/19 Unknown Urine Bilirubin Neg (Negative) 02/22/19 Unknown Urine Urobilinogen 2.0 mg/dL (<2.0) 02/22/19 Unknown Ur Leukocyte Esterase Neg (Negative) 02/22/19 Unknown Urine WBC (Auto) 12.0 /HPF (0.0-6.0) H 02/22/19 Unknown Urine RBC (Auto) 3.0 /HPF (0.0-6.0) 02/22/19 Unknown U Epithel Cells (Auto) < 1.0 /HPF (0-13.0) 02/22/19 Unknown Urine Bacteria (Auto) 1+ /HPF (Negative) 02/22/19 Unknown Urine Mucus Few /HPF 02/22/19 Unknown Urine Yeast (Budding) 1+ /HPF 02/22/19 Unknown Vancomycin Trough 14.9 ug/mL (5.0-20.0) 02/26/19 23:06 Random Vancomycin 9.1 ug/mL (0-40.0) 02/25/19 04:30 Blood Type O POSITIVE 02/22/19 14:34 Antibody Screen Negative 02/22/19 14:34 Active Medications - Current Medications Current Medications: Generic Name Dose Route Start Last Admin Trade Name Freq PRN Reason Stop Dose Admin Acetaminophen 650 mg 02/22/19 14:24 Tylenol PO Q6H PRN Pain, Mild (1-3) Acetaminophen/Hydrocodone Bitart 1 each 02/24/19 17:06 02/27/19 09:34 [place] 10/325 PO 1 each Q4H PRN Administration Pain , Severe (7-10) Sodium Chloride 1,000 mls @ 150 mls/hr 02/22/19 15:30 02/27/19 09:35 Nacl 0.9% 1000 Ml IV 150 mls/hr DIRECT RICA Administration Ceftriaxone Sodium 2 gm in 100 mls @ 200 mls/hr 02/22/19 17:00 02/27/19 09:34 Rocephin/Ns 2 Gm/100 Ml IV 200 mls/hr Q24HR RICA Administration Protocol Vancomycin HCl 1,500 mg/ 530 mls @ 333.333 mls/hr 02/26/19 00:00 02/27/19 00:41 Sodium Chloride IV 333.333 mls/hr Q12H RICA Administration Morphine Sulfate 2 mg 02/22/19 15:25 02/27/19 12:21 Morphine IV 2 mg Q4H PRN Administration Pain, Moderate (4-6) Nutrition/Malnutrition Assess - Dietary Evaluation Nutrition/Malnutrition Findings: Nutrition Notes Start: 02/23/19 10:19 Freq: Status: Active Protocol: Document 02/25/19 11:20 KS (Rec: 02/25/19 11:33 KS [id number]) Co-Sign 02/25/19 11:20 LP Nutrition Notes Initial or Follow up Reassessment Current Diagnosis Acute Kidney Injury,Diabetes Other Pertinent Diagnosis L medial thigh abscess Current Diet Renal diet Labs/Tests BUN 30 Cr 1.7 BG 108 Pertinent Medications NS at 150 ml/hr Height 5 ft 9 in Weight 90.7 kg [place] Body Weight (kg) 72.72 BMI 29.5 Subjective/Other Information Pt reports consistently eating all of his meals and feels he is not getting enough food. Pt was brought Nepro today and was informed of the role of ONS. Pt reports feeling nauseous after taking medications but that it tends to quickly subside. Percent of energy/protein needs met: 100%/100% Current % PO Good (75-100%) Minimum of two criteria No physical signs of malnutrition #1 Nutrition Diagnosis Inadequate oral intake As Evidenced by Signs and Symptoms Pt eating 100% of meals Diagnosis Progress(for reassessment Improved documentation) Is patient on ventilator? No Is Patient Ambulatory and/or Out of Bed Yes REE-([place] or-ambulatory/OOB) [ 1892.971 [id number]] Kcal/Kg value to use for calculation 22 Approximate Energy Requirements Using 1994 kcal/Kg Calculation Used for Recommendations Kcal/kg Additional Notes PRO needs: 73-108g/day (0.8-1. 2 g/kg) Fluid needs 1ml/kcal or per MD Nutrition Intervention Change Diet Order: Continue Renal Diet until acute renal failure is resolved. Add double portions. Goal #1 Continue to meet at least 75% of estimated energy and protein needs via PO intakes Anticipated Discharge Needs: Unknown at this time Follow-Up By: 03/04/19 Additional Comments F/u for intakes, kidney labs
[2019-02-28 06:26] LABS: BUN/Creatinine Ratio 15; Blood Urea Nitrogen 16 mg/dL (9-20); Calcium 8.2 mg/dL (8.4-10.2); Hemolysis Index 2
[2019-02-28] MEDS: SODIUM CHLORIDE 0.9% 1000 ML 1,000 ML IV SCH (07:25)
[2019-02-28] MEDS: cefTRIAXone/NS 2 GM/100 ML 2 GM/100 ML BAG IV SCH (10:31)
[2019-02-28] MEDS: VANCOMYCIN 1,500 MG in SODIUM CHLORIDE 0.9% 500 ML 500 ML IV SCH (12:02)
--- NOTE | 2019-02-28 12:35 | Progress Note ---
Assessment and Plan # GHAZALA: creatinine 4.6 on admission->3.4->1.7->1.5 . Suspect GHAZALA in setting of dehydration/pre renal injury and NSAID use. Imaging without acute obstruction. Do suspect that he may have some CKD given appearance of kidneys on ultrasound - for now, IVF prn and encourage po hydration. Will monitor for renal function - avoid nephrotoxins - renally dose meds - no indication for renal replacement therapy currently - daily labs # Acidosis: mild and improving, likely in setting of GHAZALA # HTN: BP reasonable off meds # Cellulitis: Status post I&D as well as debridement of this left thigh abscess on 02/26/2019 # Serum creatinine is down to 1.1 today. Discontinue his IV fluid for now. Recheck his renal function again tomorrow. Shall follow him peripherally Subjective Date of service: 02/28/19 Interval history: Patient is comfortable today. Denies any shortness of breath. Objective - Vital Signs Vital signs: Vital Signs - 12hr 02/28/19 06:15 Temperature 98.5 F Pulse Rate 92 H Respiratory 20 Rate Blood Pressure 138/81 O2 Sat by Pulse 96 Oximetry - General Appearance General appearance: well-developed, well-nourished, appears stated age EENT: PERRL, mucous membranes moist Neck: no JVD, no thyromegaly, no carotid bruit, supple Respiratory: Present: Clear to Ascultation Cardiology: regular, normal heart rate, S1S2, no murmurs Gastrointestinal: normal, normoactive bowel sounds Integumentary: no rash, other (dressing noted over his left thigh) - Lab 02/27/19 07:32 02/28/19 05:26 Most recent lab results Calcium 8.2 mg/dL (8.4-10.2) L 02/28/19 05:26 Medications & Allergies - Medications Allergies/Adverse Reactions: Allergies No Known Allergies Allergy (Unverified 02/19/19 07:26) Home Medications: Home Medications Medication Instructions Recorded Confirmed Last Taken Type Ibuprofen [Motrin 800 MG tab] 800 mg PO Q8HR PRN #30 tablet 02/19/19 02/24/19 02/22/19 08:00 Rx 800 mg cephALEXin [Keflex] 500 mg PO Q6HR #28 capsule 02/19/19 02/22/19 02/22/19 08:00 Rx 500 mg Active Medications: Generic Name Dose Route Start Last Admin Trade Name Mikeyq PRN Reason Stop Dose Admin Acetaminophen 650 mg 02/22/19 14:24 Tylenol PO Q6H PRN Pain, Mild (1-3) Acetaminophen/Hydrocodone Bitart 1 each 02/24/19 17:06 02/27/19 09:34 [place] 10/325 PO 1 each Q4H PRN Administration Pain , Severe (7-10) Sodium Chloride 1,000 mls @ 150 mls/hr 02/22/19 15:30 02/28/19 07:25 Nacl 0.9% 1000 Ml IV 150 mls/hr DIRECT RICA Administration Ceftriaxone Sodium 2 gm in 100 mls @ 200 mls/hr 02/22/19 17:00 02/28/19 10:31 Rocephin/Ns 2 Gm/100 Ml IV 200 mls/hr Q24HR RICA Administration Protocol Vancomycin HCl 1,500 mg/ 530 mls @ 333.333 mls/hr 02/26/19 00:00 02/28/19 12:02 Sodium Chloride IV 333.333 mls/hr Q12H RICA Administration Morphine Sulfate 2 mg 02/22/19 15:25 02/27/19 16:44 Morphine IV 2 mg Q4H PRN Administration Pain, Moderate (4-6)
[2019-03-01] MEDS: VANCOMYCIN 1,500 MG in SODIUM CHLORIDE 0.9% 500 ML 500 ML IV SCH ×2 (00:28→14:42)
[2019-03-01 05:50] LABS: Hematocrit 30.8 % (35.5-45.6); Hemoglobin 10.3 gm/dl (11.8-15.2); Mean Corpuscular HGB Conc 33 % (32-34); Mean Corpuscular Volume 87 fl (84-94); Platelet Count 312 K/mm3 (140-440); Red Blood Count 3.54 M/mm3 (3.65-5.03); Red Cell Distribution Width 13.3 % (13.2-15.2)
[2019-03-01 06:04] LABS: BUN/Creatinine Ratio 11; Blood Urea Nitrogen 12 mg/dL (9-20); Calcium 8.5 mg/dL (8.4-10.2); Hemolysis Index 2
[2019-03-01] MEDS: cefTRIAXone/NS 2 GM/100 ML 2 GM/100 ML BAG IV SCH (13:07)
--- NOTE | 2019-03-01 14:16 | Progress Note ---
Assessment and Plan Assessment and plan: Patient is a 48-year-old man without known medical problems who presented to [facility] ED with worsening left thigh infection. He was initially seen here in the ED 3 days ago prior this admission and was discharged from ED on antibiotics. * CT of the lower extremity shows subcutaneous edema. No clear abscess noted (without contrast however) MRSA Left thigh cellulitis/abscess: s/p excisional I-n-D 02/26/2019 Drop in H/H after drainage of abscess on 02/23/18 (he had copious amounts of bloody discharge from left thigh abscess after drainage): monitor closely Sepsis, poa due to left thigh abscess: treat with IV abx Acute kidney injury likely secondary to vasomotor nephropathy could also have an underlying CKD; tremendously improved Cr went from 3.4-->1.7-->1.5, consulted Nephrology, input greatly appreciated, continue to monitor closely Hypertension: low salt diet Metabolic acidosis: consult Nephrology DVT ppx: hold anticoagulation due to bloody discharge from left thigh abscess and drop in H/H which has stabilized but still small bloody drainage Disposition: continue inpatient care, d/c once ID give final recommendations and cleared by Dr. Hoffman. Patient may need more debridement History Interval history: Patient was seen and examined prior to Surgery, i also spoke with Dr. Hoffman. He believe it to be draining enough, but I had called and asked him to re- consider deep excisional drainage and since patient WBC was not improving, he scheduled him for surgery today. Follow-up on current diagnosis of left thigh infection. Overnight uneventful as no events directly reported to me. Patient denies any chest pain, shortness breath, nausea/vomiting or severe headaches. Imaging, nursing note, chart, labs and old chart reviewed. Discussed with patient. Hospitalist Physical - Physical exam Narrative exam: Gen: WDWN, NAD, Awake, Alert, Orientated HEENT: NCAT, EOMI, PERRL, OP Clear Neck: supple, no adenopathy, no thyromegaly, no JVD CVS/Heart: RRR, normal S1S2, pulses present bilaterally Chest/Lungs: CTA B, Symmetrical chest expansion, good air entry bilaterally GI/Abdomen: soft, NTND, good bowel sounds, no guarding or rebound /Bladder: no suprapubic tenderness, no CVA or paraspinal tenderness Extermity/Skin: anterior Left thigh red, indurated, warm and tender. It is draining sero-purulent drainage at the time of this assessment. MSK: FROM x 4 Neuro: CN 2-12 grossly intact, no new focal deficits Psych: calm - Constitutional Vitals: Temp Pulse Resp BP Pulse Ox 97.7 F 91 H 18 130/87 97 03/01/19 06:32 03/01/19 06:32 03/01/19 06:32 03/01/19 06:32 03/01/19 06:32 Results - Labs CBC & Chem 7: 03/01/19 04:53 03/01/19 04:53 Labs: Laboratory Last Values WBC 18.0 K/mm3 (4.5-11.0) H 03/01/19 04:53 RBC 3.54 M/mm3 (3.65-5.03) L 03/01/19 04:53 Hgb 10.3 gm/dl (11.8-15.2) L 03/01/19 04:53 Hct 30.8 % (35.5-45.6) L 03/01/19 04:53 MCV 87 fl (84-94) 03/01/19 04:53 MCH 29 pg (28-32) 03/01/19 04:53 MCHC 33 % (32-34) 03/01/19 04:53 RDW 13.3 % (13.2-15.2) 03/01/19 04:53 Plt Count 312 K/mm3 (140-440) 03/01/19 04:53 Chase % (Auto) 5.8 % (0.0-7.3) 02/27/19 07:32 Eos % (Auto) 1.1 % (0.0-4.3) 02/27/19 07:32 [place] # 1.4 K/mm3 (0.0-0.8) H 02/27/19 07:32 Eos # 0.3 K/mm3 (0.0-0.4) 02/27/19 07:32 Baso # 0.1 K/mm3 (0.0-0.1) 02/27/19 07:32 Add Manual Diff Complete 02/27/19 07:32 Total Counted 100 02/27/19 07:32 Seg Neutrophils % 85.2 % (40.0-70.0) H 02/27/19 07:32 Seg Neuts % (Manual) 76.0 % (40.0-70.0) H 02/27/19 07:32 Band Neutrophils % 2.0 % 02/27/19 07:32 Lymphocytes % (Manual) 11.0 % (13.4-35.0) L 02/27/19 07:32 Reactive Lymphs % (Man) 0 % 02/27/19 07:32 Monocytes % (Manual) 4.0 % (0.0-7.3) 02/27/19 07:32 Eosinophils % (Manual) 2.0 % (0.0-4.3) 02/27/19 07:32 Basophils % (Manual) 0 % (0.0-1.8) 02/27/19 07:32 Metamyelocytes % 2.0 % 02/27/19 07:32 Myelocytes % 2.0 % 02/27/19 07:32 Promyelocytes % 1.0 % 02/27/19 07:32 Blast Cells % 0 % 02/27/19 07:32 Nucleated RBC % Not Reportable 02/27/19 07:32 Seg Neutrophils # 20.2 K/mm3 (1.8-7.7) H 02/27/19 07:32 Seg Neutrophils # Man 18.2 K/mm3 (1.8-7.7) H 02/27/19 07:32 Band Neutrophils # 0.5 K/mm3 02/27/19 07:32 Lymphocytes # (Manual) 2.6 K/mm3 (1.2-5.4) 02/27/19 07:32 Abs React Lymphs (Man) 0.0 K/mm3 02/27/19 07:32 Monocytes # (Manual) 1.0 K/mm3 (0.0-0.8) H 02/27/19 07:32 Eosinophils # (Manual) 0.5 K/mm3 (0.0-0.4) H 02/27/19 07:32 Basophils # (Manual) 0.0 K/mm3 (0.0-0.1) 02/27/19 07:32 Metamyelocytes # 0.5 K/mm3 02/27/19 07:32 Myelocytes # 0.5 K/mm3 02/27/19 07:32 Promyelocytes # 0.2 K/mm3 02/27/19 07:32 Blast Cells # 0.0 K/mm3 02/27/19 07:32 WBC Morphology Not Reportable 02/27/19 07:32 Hypersegmented Neuts Not Reportable 02/27/19 07:32 Hyposegmented Neuts Not Reportable 02/27/19 07:32 Hypogranular Neuts Not Reportable 02/27/19 07:32 Smudge Cells Not Reportable 02/27/19 07:32 Toxic Granulation Not Reportable 02/27/19 07:32 Toxic Vacuolation Not Reportable 02/27/19 07:32 Dohle Bodies Not Reportable 02/27/19 07:32 Pelger-Huet Anomaly Not Reportable 02/27/19 07:32 Rani Rods Not Reportable 02/27/19 07:32 Platelet Estimate Consistent w auto 02/27/19 07:32 Clumped Platelets Not Reportable 02/27/19 07:32 Plt Clumps, EDTA Not Reportable 02/27/19 07:32 Large Platelets Not Reportable 02/27/19 07:32 Giant Platelets Few 02/27/19 07:32 Platelet Satelliting Not Reportable 02/27/19 07:32 Plt Morphology Comment Not Reportable 02/27/19 07:32 RBC Morphology Normal 02/27/19 07:32 Dimorphic RBCs Not Reportable 02/27/19 07:32 Polychromasia Not Reportable 02/27/19 07:32 Hypochromasia Not Reportable 02/27/19 07:32 Poikilocytosis Not Reportable 02/27/19 07:32 Anisocytosis Not Reportable 02/27/19 07:32 Microcytosis Not Reportable 02/27/19 07:32 Macrocytosis Not Reportable 02/27/19 07:32 Spherocytes Not Reportable 02/27/19 07:32 Pappenheimer Bodies Not Reportable 02/27/19 07:32 Sickle Cells Not Reportable 02/27/19 07:32 Target Cells Not Reportable 02/27/19 07:32 Tear Drop Cells Not Reportable 02/27/19 07:32 Ovalocytes Not Reportable 02/27/19 07:32 Helmet Cells Not Reportable 02/27/19 07:32 Dexter-Momence Bodies Not Reportable 02/27/19 07:32 [place] Rings Not Reportable 02/27/19 07:32 Gorman Cells Not Reportable 02/27/19 07:32 Bite Cells Not Reportable 02/27/19 07:32 Crenated Cell Not Reportable 02/27/19 07:32 Elliptocytes Not Reportable 02/27/19 07:32 Acanthocytes (Spur) Not Reportable 02/27/19 07:32 Rouleaux Not Reportable 02/27/19 07:32 Hemoglobin C Crystals Not Reportable 02/27/19 07:32 Schistocytes Not Reportable 02/27/19 07:32 Malaria parasites Not Reportable 02/27/19 07:32 Elmer Bodies Not Reportable 02/27/19 07:32 Hem Pathologist Commnt No 02/27/19 07:32 Sodium 139 mmol/L (137-145) 03/01/19 04:53 Potassium 4.0 mmol/L (3.6-5.0) 03/01/19 04:53 Chloride 103.1 mmol/L (98-107) 03/01/19 04:53 Carbon Dioxide 24 mmol/L (22-30) 03/01/19 04:53 Anion Gap 16 mmol/L 03/01/19 04:53 BUN 12 mg/dL (9-20) 03/01/19 04:53 Creatinine 1.1 mg/dL (0.8-1.5) 03/01/19 04:53 Estimated GFR > 60 ml/min 03/01/19 04:53 BUN/Creatinine Ratio 11 % 03/01/19 04:53 Glucose 106 mg/dL (75-100) H 03/01/19 04:53 POC Glucose 94 (70-105) 02/25/19 11:42 Hemoglobin A1c 5.7 % (4-6) 02/22/19 22:30 Lactic Acid 1.00 mmol/L (0.7-2.0) 02/22/19 14:34 Calcium 8.5 mg/dL (8.4-10.2) 03/01/19 04:53 Total Bilirubin 0.70 mg/dL (0.1-1.2) 02/22/19 12:31 AST 25 units/L (5-40) 02/22/19 12:31 ALT 22 units/L (7-56) 02/22/19 12:31 Alkaline Phosphatase 116 units/L (35-129) 02/22/19 12:31 Total Protein 8.1 g/dL (6.3-8.2) 02/22/19 12:31 Albumin 2.9 g/dL (3.9-5) L 02/22/19 12:31 Albumin/Globulin Ratio 0.6 % 02/22/19 12:31 Urine Color Yellow (Yellow) 02/22/19 Unknown Urine Turbidity Cloudy (Clear) 02/22/19 Unknown Urine pH 5.0 (5.0-7.0) 02/22/19 Unknown Ur Specific [place] 1.014 (1.003-1.030) 02/22/19 Unknown Urine Protein 100 mg/dl mg/dL (Negative) 02/22/19 Unknown Urine Glucose (UA) Neg mg/dL (Negative) 02/22/19 Unknown Urine Ketones Neg mg/dL (Negative) 02/22/19 Unknown Urine Blood Mod (Negative) 02/22/19 Unknown Urine Nitrite Neg (Negative) 02/22/19 Unknown Urine Bilirubin Neg (Negative) 02/22/19 Unknown Urine Urobilinogen 2.0 mg/dL (<2.0) 02/22/19 Unknown Ur Leukocyte Esterase Neg (Negative) 02/22/19 Unknown Urine WBC (Auto) 12.0 /HPF (0.0-6.0) H 02/22/19 Unknown Urine RBC (Auto) 3.0 /HPF (0.0-6.0) 02/22/19 Unknown U Epithel Cells (Auto) < 1.0 /HPF (0-13.0) 02/22/19 Unknown Urine Bacteria (Auto) 1+ /HPF (Negative) 02/22/19 Unknown Urine Mucus Few /HPF 02/22/19 Unknown Urine Yeast (Budding) 1+ /HPF 02/22/19 Unknown Vancomycin Trough 14.9 ug/mL (5.0-20.0) 02/26/19 23:06 Random Vancomycin 9.1 ug/mL (0-40.0) 02/25/19 04:30 Blood Type O POSITIVE 02/22/19 14:34 Antibody Screen Negative 02/22/19 14:34 Active Medications - Current Medications Current Medications: Generic Name Dose Route Start Last Admin Trade Name Freq PRN Reason Stop Dose Admin Acetaminophen 650 mg 01/13/20 14:24 Tylenol PO Q6H PRN Pain, Mild (1-3) Acetaminophen/Hydrocodone Bitart 1 each 02/24/19 17:06 02/27/19 09:34 [place] 10/325 PO 1 each Q4H PRN Administration Pain , Severe (7-10) Ceftriaxone Sodium 2 gm in 100 mls @ 200 mls/hr 02/22/19 17:00 03/01/19 13:07 Rocephin/Ns 2 Gm/100 Ml IV 200 mls/hr Q24HR RICA Administration Protocol Vancomycin HCl 1,500 mg/ 530 mls @ 333.333 mls/hr 02/26/19 00:00 03/01/19 00:28 Sodium Chloride IV 333.333 mls/hr Q12H RICA Administration Morphine Sulfate 2 mg 02/22/19 15:25 02/27/19 16:44 Morphine IV 2 mg Q4H PRN Administration Pain, Moderate (4-6) Nutrition/Malnutrition Assess - Dietary Evaluation Nutrition/Malnutrition Findings: Nutrition Notes Start: 02/23/19 10:19 Freq: Status: Active Protocol: Document 02/25/19 11:20 KS (Rec: 02/25/19 11:33 KS [id number]) Co-Sign 02/25/19 11:20 LP Nutrition Notes Initial or Follow up Reassessment Current Diagnosis Acute Kidney Injury,Diabetes Other Pertinent Diagnosis L medial thigh abscess Current Diet Renal diet Labs/Tests BUN 30 Cr 1.7 BG 108 Pertinent Medications NS at 150 ml/hr Height 5 ft 9 in Weight 90.7 kg [place] Body Weight (kg) 72.72 BMI 29.5 Subjective/Other Information Pt reports consistently eating all of his meals and feels he is not getting enough food. Pt was brought Nepro today and was informed of the role of ONS. Pt reports feeling nauseous after taking medications but that it tends to quickly subside. Percent of energy/protein needs met: 100%/100% Current % PO Good (75-100%) Minimum of two criteria No physical signs of malnutrition #1 Nutrition Diagnosis Inadequate oral intake As Evidenced by Signs and Symptoms Pt eating 100% of meals Diagnosis Progress(for reassessment Improved documentation) Is patient on ventilator? No Is Patient Ambulatory and/or Out of Bed Yes REE-([place]-St. Jeor-ambulatory/OOB) [ 9700.594 NUTR.[id number]] Kcal/Kg value to use for calculation 22 Approximate Energy Requirements Using 1995 kcal/Kg Calculation Used for Recommendations Kcal/kg Additional Notes PRO needs: 73-108g/day (0.8-1. 2 g/kg) Fluid needs 1ml/kcal or per MD Nutrition Intervention Change Diet Order: Continue Renal Diet until acute renal failure is resolved. Add double portions. Goal #1 Continue to meet at least 75% of estimated energy and protein needs via PO intakes Anticipated Discharge Needs: Unknown at this time Follow-Up By: 03/04/19 Additional Comments F/u for intakes, kidney labs
--- NOTE | 2019-03-01 14:43 | Progress Note ---
Assessment and Plan Cultures: Blood cultures 02/22/2019 pending Urine cultures 02/22/2019 pending. Thich cultures 02/23/2019 - MRSA A/P: 48 yo M PMHx DM2 presented to the hospital with cellulitis 1. Acute sepsis - present with tachycardia and leukocytosis, secondary to cellulitis 2. Cellulitis/Abscess - was given Keflex as outpatient, which is a reasonable e mpiric therapy. Possible MRSA given non-response. Continue vancomycin. Cultures with Staph. Spontaneously draining 3. DM2 - tight glycemic control for best wound healing 4. GHAZALA - improving. Renal dosing Recs: - stopped ceftriaxone; no evidence of gram negative infection. - continue vancomycin dosed per pharmacy, goal trough 10-20. - Will treat to complete 10 days post debridement. When ready for discharge complete course with Bactrim DS BID. Stop date: 03/08/2019 Thank you for the consult, we will continue to follow. Dorota Morrissey MD [facility] ([facility]) M: [phone] O: [phone] F: [phone] Subjective Date of service: 03/01/19 Interval history: Improved leg pain, afebrile, improved white count. Objective - Exam Narrative Exam: Constitutional: Alert, cooperative. No acute distress Head, Ears, Nose: Normocephalic, atraumatic. External ears, nose normal Eyes: Conjunctivae/corneas clear. No icterus. No ptosis. Neck: Supple, no meningeal signs Oral: dentition fair, no thrush Cardiovascular: S1, S2 normal. Respiratory: Good air entry, clear to auscultation bilaterally GI: Soft, non-tender; bowel sounds normal. No peritoneal signs. Musculoskeletal: No pedal edema, no cyanosis. s/p I&D of the abscess with open wound &packing. Skin: No rash or abscess Hem/Lymphatic: No palpable cervical or supraclavicular nodes. No lymphangitis Psych: Mood ok. Affect normal Neurological: Awake, alert, oriented. No gross abnormality - Constitutional Vitals: Vital Signs Temp Pulse Resp BP Pulse Ox 97.7 F 91 H 18 130/87 97 03/01/19 06:32 03/01/19 06:32 03/01/19 06:32 03/01/19 06:32 03/01/19 06:32 Temperature -Last 24 Hours Temperature 97.7 F Temperature 99.1 F - Labs CBC & Chem 7: 03/01/19 04:53 03/01/19 04:53 Labs: Abnormal lab results 03/01/19 03/01/19 Range/Units 04:53 04:53 WBC 18.0 H (4.5-11.0) K/mm3 RBC 3.54 L (3.65-5.03) M/mm3 Hgb 10.3 L (11.8-15.2) gm/dl Hct 30.8 L (35.5-45.6) % Glucose 106 H (75-100) mg/dL
[2019-03-02] MEDS: VANCOMYCIN 1,500 MG in SODIUM CHLORIDE 0.9% 500 ML 500 ML IV SCH ×3 (01:14→23:28)
[2019-03-02 07:19] LABS: Hematocrit 29.3 % (35.5-45.6); Hemoglobin 9.8 gm/dl (11.8-15.2); Mean Corpuscular HGB Conc 33 % (32-34); Mean Corpuscular Volume 87 fl (84-94); Platelet Count 355 K/mm3 (140-440); Red Blood Count 3.37 M/mm3 (3.65-5.03); Red Cell Distribution Width 13.5 % (13.2-15.2)
[2019-03-02 07:42] LABS: BUN/Creatinine Ratio 12; Blood Urea Nitrogen 13 mg/dL (9-20); Calcium 8.7 mg/dL (8.4-10.2); Hemolysis Index 4
[2019-03-02] MEDS: MORPHINE 2 MG/1 ML INJ IV PRN (11:27)
--- NOTE | 2019-03-02 13:37 | Progress Note ---
Assessment and Plan Cultures: Blood cultures 02/22/2019 pending Urine cultures 02/22/2019 pending. Thich cultures 02/23/2019 - MRSA A/P: 48 yo M PMHx DM2 presented to the hospital with cellulitis 1. Acute sepsis - present with tachycardia and leukocytosis, secondary to cellulitis 2. Cellulitis/Abscess - was given Keflex as outpatient, which is a reasonable e mpiric therapy. MRSA in abscess. Concern for non-resolving white count. ?Further debridement needed? 3. DM2 - tight glycemic control for best wound healing 4. GHAZALA - improving. Renal dosing Recs: - stopped ceftriaxone; no evidence of gram negative infection. - continue vancomycin dosed per pharmacy, goal trough 10-20. - Will treat to complete 10 days post debridement. When ready for discharge complete course with Bactrim DS BID. Stop date: 03/08/2019 assuming no further debridements. Thank you for the consult, we will continue to follow. Dorota Morrissey MD [facility] ([facility]) M: [phone] O: [phone] F: [phone] Subjective Date of service: 03/02/19 Interval history: Improved leg pain, afebrile, stable white count. Objective - Exam Narrative Exam: Constitutional: Alert, cooperative. No acute distress Oral: dentition fair, no thrush Cardiovascular: S1, S2 normal. Respiratory: Good air entry, clear to auscultation bilaterally GI: Soft, non-tender; bowel sounds normal. No peritoneal signs. Musculoskeletal: No pedal edema, no cyanosis. s/p I&D of the abscess with open wound &packing. Skin: No rash or abscess Hem/Lymphatic: No palpable cervical or supraclavicular nodes. No lymphangitis Psych: Mood ok. Affect normal Neurological: Awake, alert, oriented. No gross abnormality - Constitutional Vitals: Vital Signs Temp Pulse Resp BP Pulse Ox 98.7 F 89 16 122/80 96 03/02/19 12:11 03/02/19 12:11 03/02/19 12:11 03/02/19 12:11 03/02/19 12:11 Temperature -Last 24 Hours Temperature 98.7 F Temperature 98.5 F Temperature 99.2 F Temperature 98.5 F - Labs CBC & Chem 7: 03/02/19 05:25 03/02/19 05:25 Labs: Abnormal lab results 03/02/19 Range/Units 05:25 WBC 17.2 H (4.5-11.0) K/mm3 RBC 3.37 L (3.65-5.03) M/mm3 Hgb 9.8 L (11.8-15.2) gm/dl Hct 29.3 L (35.5-45.6) %
--- NOTE | 2019-03-02 13:39 | Progress Note ---
Assessment and Plan Assessment and plan: Patient is a 48-year-old male with no significant past medical history according to him who presents to the ED with complaint of redness and pain in the left medial thigh. He believes this may have started as a result of having some bites he was initially seen in the ED 3 days ago and was discharged on antibiotics with no improvement of symptoms. The patient reports that instead the area has become more indurated with increased redness warmt. He requires a cane to ambulate secondary to the severe pain and this is constant. He rates the pain a 10/10 intensity. He denies any nausea vomiting or diarrhea he denies any fever although reports chills Cultures: Blood cultures 02/22/2019 pending Urine cultures 02/22/2019 pending. Thich cultures 02/23/2019 - MRSA * CT of the lower extremity shows subcutaneous edema. No clear abscess noted (without contrast however) on admission MRSA Left thigh cellulitis/abscess: s/p excisional I-n-D 02/26/2019. Per wound care nurse and surgery patient will need wound VAC Case management consult placed with respect to this. Due to nature of wound patient will continue to need pain control during wound care change. Adjustment made to pain medications. Drop in H/H after drainage of abscess on 02/23/18 (he had copious amounts of bloody discharge from left thigh abscess after drainage): monitor closely Sepsis, poa due to left thigh abscess: treat with IV abx. Per ID Will treat to complete 10 days post debridement. When ready for discharge complete course with Bactrim DS BID. Stop date: 03/08/2019 assuming no further debridements. Acute kidney injury likely secondary to vasomotor nephropathy could also have an underlying CKD; tremendously improved Cr went from 3.4-->1.7-->1.5-->1.1, consu lted Nephrology, input greatly appreciated, continue to monitor closely Hypertension: low salt diet Metabolic acidosis: consult Nephrology No clinical evidence of diabetes mellitus A1c is 5.7. We will continue with glycemic control for best wound healing. DVT ppx: hold anticoagulation due to bloody discharge from left thigh abscess and drop in H/H which has stabilized but still small bloody drainage Disposition: continue inpatient care, d/c once ID give final recommendations and cleared by Dr. Hoffman. Patient may need more debridement - History Interval history: Patient seen and examined resting comfortably although with severe pain on attempted change dressing. Discussed with wound care team patient with significant deep wound. Will need a wound VAC. Case management getting involved. Hospitalist Physical - Physical exam Narrative exam: Gen: WDWN, NAD, Awake, Alert, Orientated HEENT: NCAT, EOMI, PERRL, OP Clear Neck: supple, no adenopathy, no thyromegaly, no JVD CVS/Heart: RRR, normal S1S2, pulses present bilaterally Chest/Lungs: CTA B, Symmetrical chest expansion, good air entry bilaterally GI/Abdomen: soft, NTND, good bowel sounds, no guarding or rebound /Bladder: no suprapubic tenderness, no CVA or paraspinal tenderness Extermity/Skin: anterior Left thigh red, tender to touch dressing in place but could be noted to still have sero-purulent drainage at the time of this assessment. MSK: FROM x 4 Neuro: CN 2-12 grossly intact, no new focal deficits Psych: calm - Constitutional Vitals: Temp Pulse Resp BP Pulse Ox 98.7 F 89 16 122/80 96 03/02/19 12:11 03/02/19 12:11 03/02/19 12:11 03/02/19 12:11 03/02/19 12:11 Results - Labs CBC & Chem 7: 03/02/19 05:25 03/02/19 05:25 Labs: Laboratory Last Values WBC 17.2 K/mm3 (4.5-11.0) H 03/02/19 05:25 RBC 3.37 M/mm3 (3.65-5.03) L 03/02/19 05:25 Hgb 9.8 gm/dl (11.8-15.2) L 03/02/19 05:25 Hct 29.3 % (35.5-45.6) L 03/02/19 05:25 MCV 87 fl (84-94) 03/02/19 05:25 MCH 29 pg (28-32) 03/02/19 05:25 MCHC 33 % (32-34) 03/02/19 05:25 RDW 13.5 % (13.2-15.2) 03/02/19 05:25 Plt Count 355 K/mm3 (140-440) 03/02/19 05:25 [place] % (Auto) 5.8 % (0.0-7.3) 02/27/19 07:32 Eos % (Auto) 1.1 % (0.0-4.3) 02/27/19 07:32 [place] # 1.4 K/mm3 (0.0-0.8) H 02/27/19 07:32 Eos # 0.3 K/mm3 (0.0-0.4) 02/27/19 07:32 Baso # 0.1 K/mm3 (0.0-0.1) 02/27/19 07:32 Add Manual Diff Complete 02/27/19 07:32 Total Counted 100 02/27/19 07:32 Seg Neutrophils % 85.2 % (40.0-70.0) H 02/27/19 07:32 Seg Neuts % (Manual) 76.0 % (40.0-70.0) H 02/27/19 07:32 Band Neutrophils % 2.0 % 02/27/19 07:32 Lymphocytes % (Manual) 11.0 % (13.4-35.0) L 02/27/19 07:32 Reactive Lymphs % (Man) 0 % 02/27/19 07:32 Monocytes % (Manual) 4.0 % (0.0-7.3) 02/27/19 07:32 Eosinophils % (Manual) 2.0 % (0.0-4.3) 02/27/19 07:32 Basophils % (Manual) 0 % (0.0-1.8) 02/27/19 07:32 Metamyelocytes % 2.0 % 02/27/19 07:32 Myelocytes % 2.0 % 02/27/19 07:32 Promyelocytes % 1.0 % 02/27/19 07:32 Blast Cells % 0 % 02/27/19 07:32 Nucleated RBC % Not Reportable 02/27/19 07:32 Seg Neutrophils # 20.2 K/mm3 (1.8-7.7) H 02/27/19 07:32 Seg Neutrophils # Man 18.2 K/mm3 (1.8-7.7) H 02/27/19 07:32 Band Neutrophils # 0.5 K/mm3 02/27/19 07:32 Lymphocytes # (Manual) 2.6 K/mm3 (1.2-5.4) 02/27/19 07:32 Abs React Lymphs (Man) 0.0 K/mm3 02/27/19 07:32 Monocytes # (Manual) 1.0 K/mm3 (0.0-0.8) H 02/27/19 07:32 Eosinophils # (Manual) 0.5 K/mm3 (0.0-0.4) H 02/27/19 07:32 Basophils # (Manual) 0.0 K/mm3 (0.0-0.1) 02/27/19 07:32 Metamyelocytes # 0.5 K/mm3 02/27/19 07:32 Myelocytes # 0.5 K/mm3 02/27/19 07:32 Promyelocytes # 0.2 K/mm3 02/27/19 07:32 Blast Cells # 0.0 K/mm3 02/27/19 07:32 WBC Morphology Not Reportable 02/27/19 07:32 Hypersegmented Neuts Not Reportable 02/27/19 07:32 Hyposegmented Neuts Not Reportable 02/27/19 07:32 Hypogranular Neuts Not Reportable 02/27/19 07:32 Smudge Cells Not Reportable 02/27/19 07:32 Toxic Granulation Not Reportable 02/27/19 07:32 Toxic Vacuolation Not Reportable 02/27/19 07:32 Dohle Bodies Not Reportable 02/27/19 07:32 Pelger-Huet Anomaly Not Reportable 02/27/19 07:32 Rani Rods Not Reportable 02/27/19 07:32 Platelet Estimate Consistent w auto 02/27/19 07:32 Clumped Platelets Not Reportable 02/27/19 07:32 Plt Clumps, EDTA Not Reportable 02/27/19 07:32 Large Platelets Not Reportable 02/27/19 07:32 Giant Platelets Few 02/27/19 07:32 Platelet Satelliting Not Reportable 02/27/19 07:32 Plt Morphology Comment Not Reportable 02/27/19 07:32 RBC Morphology Normal 02/27/19 07:32 Dimorphic RBCs Not Reportable 02/27/19 07:32 Polychromasia Not Reportable 02/27/19 07:32 Hypochromasia Not Reportable 02/27/19 07:32 Poikilocytosis Not Reportable 02/27/19 07:32 Anisocytosis Not Reportable 02/27/19 07:32 Microcytosis Not Reportable 02/27/19 07:32 Macrocytosis Not Reportable 02/27/19 07:32 Spherocytes Not Reportable 02/27/19 07:32 Pappenheimer Bodies Not Reportable 02/27/19 07:32 Sickle Cells Not Reportable 02/27/19 07:32 Target Cells Not Reportable 02/27/19 07:32 Tear Drop Cells Not Reportable 02/27/19 07:32 Ovalocytes Not Reportable 02/27/19 07:32 Helmet Cells Not Reportable 02/27/19 07:32 [place] Bodies Not Reportable 02/27/19 07:32 [place] Rings Not Reportable 02/27/19 07:32 [place] Cells Not Reportable 02/27/19 07:32 Bite Cells Not Reportable 02/27/19 07:32 Crenated Cell Not Reportable 02/27/19 07:32 Elliptocytes Not Reportable 02/27/19 07:32 Acanthocytes (Spur) Not Reportable 02/27/19 07:32 Rouleaux Not Reportable 02/27/19 07:32 Hemoglobin C Crystals Not Reportable 02/27/19 07:32 Schistocytes Not Reportable 02/27/19 07:32 Malaria parasites Not Reportable 02/27/19 07:32 [place] Bodies Not Reportable 02/27/19 07:32 Hem Pathologist Commnt No 02/27/19 07:32 Sodium 139 mmol/L (137-145) 03/02/19 05:25 Potassium 3.8 mmol/L (3.6-5.0) 03/02/19 05:25 Chloride 103.7 mmol/L (98-107) 03/02/19 05:25 Carbon Dioxide 22 mmol/L (22-30) 03/02/19 05:25 Anion Gap 17 mmol/L 03/02/19 05:25 BUN 13 mg/dL (9-20) 03/02/19 05:25 Creatinine 1.1 mg/dL (0.8-1.5) 03/02/19 05:25 Estimated GFR > 60 ml/min 03/02/19 05:25 BUN/Creatinine Ratio 12 % 03/02/19 05:25 Glucose 100 mg/dL (75-100) 03/02/19 05:25 POC Glucose 94 (70-105) 02/25/19 11:42 Hemoglobin A1c 5.7 % (4-6) 02/22/19 22:30 Lactic Acid 1.00 mmol/L (0.7-2.0) 02/22/19 14:34 Calcium 8.7 mg/dL (8.4-10.2) 03/02/19 05:25 Total Bilirubin 0.70 mg/dL (0.1-1.2) 02/22/19 12:31 AST 25 units/L (5-40) 02/22/19 12:31 ALT 22 units/L (7-56) 02/22/19 12:31 Alkaline Phosphatase 116 units/L (35-129) 02/22/19 12:31 Total Protein 8.1 g/dL (6.3-8.2) 02/22/19 12:31 Albumin 2.9 g/dL (3.9-5) L 02/22/19 12:31 Albumin/Globulin Ratio 0.6 % 02/22/19 12:31 Urine Color Yellow (Yellow) 02/22/19 Unknown Urine Turbidity Cloudy (Clear) 02/22/19 Unknown Urine pH 5.0 (5.0-7.0) 02/22/19 Unknown Ur Specific [place] 1.014 (1.003-1.030) 02/22/19 Unknown Urine Protein 100 mg/dl mg/dL (Negative) 02/22/19 Unknown Urine Glucose (UA) Neg mg/dL (Negative) 02/22/19 Unknown Urine Ketones Neg mg/dL (Negative) 02/22/19 Unknown Urine Blood Mod (Negative) 02/22/19 Unknown Urine Nitrite Neg (Negative) 02/22/19 Unknown Urine Bilirubin Neg (Negative) 02/22/19 Unknown Urine Urobilinogen 2.0 mg/dL (<2.0) 02/22/19 Unknown Ur Leukocyte Esterase Neg (Negative) 02/22/19 Unknown Urine WBC (Auto) 12.0 /HPF (0.0-6.0) H 02/22/19 Unknown Urine RBC (Auto) 3.0 /HPF (0.0-6.0) 02/22/19 Unknown U Epithel Cells (Auto) < 1.0 /HPF (0-13.0) 02/22/19 Unknown Urine Bacteria (Auto) 1+ /HPF (Negative) 02/22/19 Unknown Urine Mucus Few /HPF 02/22/19 Unknown Urine Yeast (Budding) 1+ /HPF 02/22/19 Unknown Vancomycin Trough 14.9 ug/mL (5.0-20.0) 02/26/19 23:06 Random Vancomycin 9.1 ug/mL (0-40.0) 02/25/19 04:30 Blood Type O POSITIVE 02/22/19 14:34 Antibody Screen Negative 02/22/19 14:34 Active Medications - Current Medications Current Medications: Generic Name Dose Route Start Last Admin Trade Name Freq PRN Reason Stop Dose Admin Acetaminophen 650 mg 02/22/19 14:24 Tylenol PO Q6H PRN Pain, Mild (1-3) Acetaminophen/Hydrocodone Bitart 1 each 02/24/19 17:06 02/27/19 09:34 [place] 10/325 PO 1 each Q4H PRN Administration Pain , Severe (7-10) Vancomycin HCl 1,500 mg/ 530 mls @ 333.333 mls/hr 02/26/19 00:00 03/02/19 01:14 Sodium Chloride IV 333.333 mls/hr Q12H RICA Administration Nutrition/Malnutrition Assess - Dietary Evaluation Nutrition/Malnutrition Findings: Nutrition Notes Start: 02/23/19 10:19 Freq: Status: Active Protocol: Document 02/25/19 11:20 KS (Rec: 02/25/19 11:33 KS [id number]) Co-Sign 02/25/19 11:20 LP Nutrition Notes Initial or Follow up Reassessment Current Diagnosis Acute Kidney Injury,Diabetes Other Pertinent Diagnosis L medial thigh abscess Current Diet Renal diet Labs/Tests BUN 30 Cr 1.7 BG 108 Pertinent Medications NS at 150 ml/hr Height 5 ft 9 in Weight 90.7 kg [place] Body Weight (kg) 72.72 BMI 29.5 Subjective/Other Information Pt reports consistently eating all of his meals and feels he is not getting enough food. Pt was brought Nepro today and was informed of the role of ONS. Pt reports feeling nauseous after taking medications but that it tends to quickly subside. Percent of energy/protein needs met: 100%/100% Current % PO Good (75-100%) Minimum of two criteria No physical signs of malnutrition #1 Nutrition Diagnosis Inadequate oral intake As Evidenced by Signs and Symptoms Pt eating 100% of meals Diagnosis Progress(for reassessment Improved documentation) Is patient on ventilator? No Is Patient Ambulatory and/or Out of Bed Yes REE-([place]-St. Jeor-ambulatory/OOB) [ 2310.594 NUTR.[id number]] Kcal/Kg value to use for calculation 22 Approximate Energy Requirements Using 1994 kcal/Kg Calculation Used for Recommendations Kcal/kg Additional Notes PRO needs: 73-108g/day (0.8-1. 2 g/kg) Fluid needs 1ml/kcal or per MD Nutrition Intervention Change Diet Order: Continue Renal Diet until acute renal failure is resolved. Add double portions. Goal #1 Continue to meet at least 75% of estimated energy and protein needs via PO intakes Anticipated Discharge Needs: Unknown at this time Follow-Up By: 03/04/19 Additional Comments F/u for intakes, kidney labs
[2019-03-02] MEDS: HYDROmorphone 1 MG/1 ML INJ IV PRN (14:35)
[2019-03-02] MEDS: HYDROcodone/ACETAMINOPHEN 10-325MG TAB PO PRN (23:26)
[2019-03-03 11:47] LABS: Hematocrit 32.3 % (35.5-45.6); Hemoglobin 10.4 gm/dl (11.8-15.2); Mean Corpuscular HGB Conc 32 % (32-34); Mean Corpuscular Volume 89 fl (84-94); Platelet Count 389 K/mm3 (140-440); Red Blood Count 3.62 M/mm3 (3.65-5.03); Red Cell Distribution Width 13.7 % (13.2-15.2)
[2019-03-03 12:46] LABS: Basophils % (Manual) 0 % (0.0-1.8); Large Platelets Few; Platelet Estimate Consistent w Auto; RBC Morphology Normal; Total Cells Counted 100
[2019-03-03] MEDS: VANCOMYCIN 1,500 MG in SODIUM CHLORIDE 0.9% 500 ML 500 ML IV SCH (13:22)
--- NOTE | 2019-03-03 13:36 | Progress Note ---
Assessment and Plan Cultures: Blood cultures 02/22/2019 pending Urine cultures 02/22/2019 pending. Thich cultures 02/23/2019 - MRSA A/P: 48 yo M PMHx DM2 presented to the hospital with cellulitis 1. Acute sepsis - present with tachycardia and leukocytosis, secondary to cellulitis 2. Cellulitis/Abscess - was given Keflex as outpatient, which is a reasonable e mpiric therapy. MRSA in abscess. Concern for non-resolving white count. ?Further debridement needed? 3. DM2 - tight glycemic control for best wound healing 4. GHAZALA - improving. Renal dosing Recs: - stopped ceftriaxone; no evidence of gram negative infection. - continue vancomycin dosed per pharmacy, goal trough 10-20. - Will treat to complete 10 days post debridement. When ready for discharge complete course with Bactrim DS BID. Stop date: 03/08/2019 assuming no further debridements. Thank you for the consult, we will sign off. Please call with questions. Dorota Morrissey MD [facility] ([facility]) M: [phone] O: [phone] F: [phone] Subjective Date of service: 03/03/19 Interval history: Improved leg pain, afebrile, improved white count. Objective - Exam Narrative Exam: Constitutional: Alert, cooperative. No acute distress Oral: dentition fair, no thrush Cardiovascular: S1, S2 normal. Respiratory: Good air entry, clear to auscultation bilaterally GI: Soft, non-tender; bowel sounds normal. No peritoneal signs. Musculoskeletal: No pedal edema, no cyanosis. s/p I&D of the abscess with open wound &packing. Skin: No rash or abscess Hem/Lymphatic: No palpable cervical or supraclavicular nodes. No lymphangitis Psych: Mood ok. Affect normal Neurological: Awake, alert, oriented. No gross abnormality - Constitutional Vitals: Vital Signs Temp Pulse Resp BP Pulse Ox 97.0 F L 85 20 115/68 97 03/03/19 11:02 03/03/19 11:02 03/03/19 11:02 03/03/19 11:02 03/03/19 11:02 Temperature -Last 24 Hours Temperature 97.0 F Temperature 97.8 F Temperature 97.8 F Temperature 98.5 F - Labs CBC & Chem 7: 03/03/19 11:34 03/02/19 05:25 Labs: Abnormal lab results 03/03/19 Range/Units 11:34 WBC 13.9 H (4.5-11.0) K/mm3 RBC 3.62 L (3.65-5.03) M/mm3 Hgb 10.4 L (11.8-15.2) gm/dl Hct 32.3 L (35.5-45.6) % Seg Neuts % (Manual) 75.0 H (40.0-70.0) % Seg Neutrophils # Man 10.4 H (1.8-7.7) K/mm3
--- NOTE | 2019-03-03 15:40 | Progress Note ---
Assessment and Plan Assessment and plan: Patient is a 48-year-old male with no significant past medical history according to him who presents to the ED with complaint of redness and pain in the left medial thigh. He believes this may have started as a result of having some bites he was initially seen in the ED 3 days ago and was discharged on antibiotics with no improvement of symptoms. The patient reports that instead the area has become more indurated with increased redness warmt. He requires a cane to ambulate secondary to the severe pain and this is constant. He rates the pain a 10/10 intensity. He denies any nausea vomiting or diarrhea he denies any fever although reports chills Cultures: Blood cultures 02/22/2019 pending Urine cultures 02/22/2019 pending. Thich cultures 02/23/2019 - MRSA * CT of the lower extremity shows subcutaneous edema. No clear abscess noted (without contrast however) on admission MRSA Left thigh cellulitis/abscess: s/p excisional I-n-D 02/26/2019. Per wound care nurse and surgery patient will need wound VAC Case management consult placed with respect to this. Due to nature of wound patient will continue to need pain control during wound care change. Adjustment made to pain medications. Considering the amount of deformity wonder if patient will benefit from skin grafting when healing and infectious processes while in place. Drop in H/H after drainage of abscess on 02/23/18 (he had copious amounts of bloody discharge from left thigh abscess after drainage): monitor closely Sepsis, poa due to left thigh abscess: treat with IV abx. Per ID Will treat to complete 10 days post debridement. When ready for discharge complete course with Bactrim DS BID. Stop date: 03/08/2019 assuming no further debridements. Acute kidney injury likely secondary to vasomotor nephropathy could also have an underlying CKD; tremendously improved Cr went from 3.4-->1.7-->1.5-->1.1, consulted Nephrology, input greatly appreciated, continue to monitor closely Hypertension: low salt diet Metabolic acidosis: consult Nephrology No clinical evidence of diabetes mellitus A1c is 5.7. We will continue with glycemic control for best wound healing. DVT ppx: hold anticoagulation due to bloody discharge from left thigh abscess and drop in H/H which has stabilized but still small bloody drainage Disposition: continue inpatient care, d/c once ID give final recommendations and cleared by Dr. Hoffman. Patient may need more debridement - History Interval history: Patient seen and examined resting comfortably patient reports significant pain during change of wound dressing. Nursing staff called requesting extra dose of pain medication as pain was rated a 10/10 in intensity is clinically stable at this point. Hospitalist Physical - Physical exam Narrative exam: Gen: WDWN, NAD, Awake, Alert, Orientated HEENT: NCAT, EOMI, PERRL, OP Clear Neck: supple, no adenopathy, no thyromegaly, no JVD CVS/Heart: RRR, normal S1S2, pulses present bilaterally Chest/Lungs: CTA B, Symmetrical chest expansion, good air entry bilaterally GI/Abdomen: soft, NTND, good bowel sounds, no guarding or rebound /Bladder: no suprapubic tenderness, no CVA or paraspinal tenderness Extermity/Skin: anterior Left thigh red, tender to touch dressing in place but could be noted to still have sero-purulent drainage at the time of this assessment. Looked a wound dressing myself. Wound VAC not applied MSK: FROM x 4 Neuro: CN 2-12 grossly intact, no new focal deficits Psych: calm - Constitutional Vitals: Temp Pulse Resp BP Pulse Ox 97.0 F L 85 20 115/68 97 03/03/19 11:02 03/03/19 11:02 03/03/19 11:02 03/03/19 11:02 03/03/19 11:02 Results - Labs CBC & Chem 7: 03/03/19 11:34 03/02/19 05:25 Labs: Laboratory Last Values WBC 13.9 K/mm3 (4.5-11.0) H 03/03/19 11:34 RBC 3.62 M/mm3 (3.65-5.03) L 03/03/19 11:34 Hgb 10.4 gm/dl (11.8-15.2) L 03/03/19 11:34 Hct 32.3 % (35.5-45.6) L 03/03/19 11:34 MCV 89 fl (84-94) 03/03/19 11:34 MCH 29 pg (28-32) 03/03/19 11:34 MCHC 32 % (32-34) 03/03/19 11:34 RDW 13.7 % (13.2-15.2) 03/03/19 11:34 Plt Count 389 K/mm3 (140-440) 03/03/19 11:34 [place] % (Auto) 5.8 % (0.0-7.3) 02/27/19 07:32 Eos % (Auto) 1.1 % (0.0-4.3) 02/27/19 07:32 [place] # 1.4 K/mm3 (0.0-0.8) H 02/27/19 07:32 Eos # 0.3 K/mm3 (0.0-0.4) 02/27/19 07:32 Baso # 0.1 K/mm3 (0.0-0.1) 02/27/19 07:32 Add Manual Diff Complete 03/03/19 11:34 Total Counted 100 03/03/19 11:34 Seg Neutrophils % 85.2 % (40.0-70.0) H 02/27/19 07:32 Seg Neuts % (Manual) 75.0 % (40.0-70.0) H 03/03/19 11:34 Band Neutrophils % 0 % 03/03/19 11:34 Lymphocytes % (Manual) 18.0 % (13.4-35.0) 03/03/19 11:34 Reactive Lymphs % (Man) 0 % 03/03/19 11:34 Monocytes % (Manual) 4.0 % (0.0-7.3) 03/03/19 11:34 Eosinophils % (Manual) 2.0 % (0.0-4.3) 03/03/19 11:34 Basophils % (Manual) 0 % (0.0-1.8) 03/03/19 11:34 Metamyelocytes % 1.0 % 03/03/19 11:34 Myelocytes % 0 % 03/03/19 11:34 Promyelocytes % 0 % 03/03/19 11:34 Blast Cells % 0 % 03/03/19 11:34 Nucleated RBC % Not Reportable 03/03/19 11:34 Seg Neutrophils # 20.2 K/mm3 (1.8-7.7) H 02/27/19 07:32 Seg Neutrophils # Man 10.4 K/mm3 (1.8-7.7) H 03/03/19 11:34 Band Neutrophils # 0.0 K/mm3 03/03/19 11:34 Lymphocytes # (Manual) 2.5 K/mm3 (1.2-5.4) 03/03/19 11:34 Abs React Lymphs (Man) 0.0 K/mm3 03/03/19 11:34 Monocytes # (Manual) 0.6 K/mm3 (0.0-0.8) 03/03/19 11:34 Eosinophils # (Manual) 0.3 K/mm3 (0.0-0.4) 03/03/19 11:34 Basophils # (Manual) 0.0 K/mm3 (0.0-0.1) 03/03/19 11:34 Metamyelocytes # 0.1 K/mm3 03/03/19 11:34 Myelocytes # 0.0 K/mm3 03/03/19 11:34 Promyelocytes # 0.0 K/mm3 03/03/19 11:34 Blast Cells # 0.0 K/mm3 03/03/19 11:34 WBC Morphology Not Reportable 03/03/19 11:34 Hypersegmented Neuts Not Reportable 03/03/19 11:34 Hyposegmented Neuts Not Reportable 03/03/19 11:34 Hypogranular Neuts Not Reportable 03/03/19 11:34 Smudge Cells Not Reportable 03/03/19 11:34 Toxic Granulation Not Reportable 03/03/19 11:34 Toxic Vacuolation Not Reportable 03/03/19 11:34 Dohle Bodies Not Reportable 03/03/19 11:34 Pelger-Huet Anomaly Not Reportable 03/03/19 11:34 Rani Rods Not Reportable 03/03/19 11:34 Platelet Estimate Consistent w auto 03/03/19 11:34 Clumped Platelets Not Reportable 03/03/19 11:34 Plt Clumps, EDTA Not Reportable 03/03/19 11:34 Large Platelets Few 03/03/19 11:34 Giant Platelets Not Reportable 03/03/19 11:34 Platelet Satelliting Not Reportable 03/03/19 11:34 Plt Morphology Comment Not Reportable 03/03/19 11:34 RBC Morphology Normal 03/03/19 11:34 Dimorphic RBCs Not Reportable 03/03/19 11:34 Polychromasia Not Reportable 03/03/19 11:34 Hypochromasia Not Reportable 03/03/19 11:34 Poikilocytosis Not Reportable 03/03/19 11:34 Anisocytosis Not Reportable 03/03/19 11:34 Microcytosis Not Reportable 03/03/19 11:34 Macrocytosis Not Reportable 03/03/19 11:34 Spherocytes Not Reportable 03/03/19 11:34 Pappenheimer Bodies Not Reportable 03/03/19 11:34 Sickle Cells Not Reportable 03/03/19 11:34 Target Cells Not Reportable 03/03/19 11:34 Tear Drop Cells Not Reportable 03/03/19 11:34 Ovalocytes Not Reportable 03/03/19 11:34 Helmet Cells Not Reportable 03/03/19 11:34 Dex[place] Bodies Not Reportable 03/03/19 11:34 [place] Rings Not Reportable 03/03/19 11:34 [place] Cells Not Reportable 03/03/19 11:34 Bite Cells Not Reportable 03/03/19 11:34 Crenated Cell Not Reportable 03/03/19 11:34 Elliptocytes Not Reportable 03/03/19 11:34 Acanthocytes (Spur) Not Reportable 03/03/19 11:34 Rouleaux Not Reportable 03/03/19 11:34 Hemoglobin C Crystals Not Reportable 03/03/19 11:34 Schistocytes Not Reportable 03/03/19 11:34 Malaria parasites Not Reportable 03/03/19 11:34 [place] Bodies Not Reportable 03/03/19 11:34 Hem Pathologist Commnt No 03/03/19 11:34 Sodium 139 mmol/L (137-145) 03/02/19 05:25 Potassium 3.8 mmol/L (3.6-5.0) 03/02/19 05:25 Chloride 103.7 mmol/L (98-107) 03/02/19 05:25 Carbon Dioxide 22 mmol/L (22-30) 03/02/19 05:25 Anion Gap 17 mmol/L 03/02/19 05:25 BUN 13 mg/dL (9-20) 03/02/19 05:25 Creatinine 1.1 mg/dL (0.8-1.5) 03/02/19 05:25 Estimated GFR > 60 ml/min 03/02/19 05:25 BUN/Creatinine Ratio 12 % 03/02/19 05:25 Glucose 100 mg/dL (75-100) 03/02/19 05:25 POC Glucose 94 (70-105) 02/25/19 11:42 Hemoglobin A1c 5.7 % (4-6) 02/22/19 22:30 Lactic Acid 1.00 mmol/L (0.7-2.0) 02/22/19 14:34 Calcium 8.7 mg/dL (8.4-10.2) 03/02/19 05:25 Total Bilirubin 0.70 mg/dL (0.1-1.2) 02/22/19 12:31 AST 25 units/L (5-40) 02/22/19 12:31 ALT 22 units/L (7-56) 02/22/19 12:31 Alkaline Phosphatase 116 units/L (35-129) 02/22/19 12:31 Total Protein 8.1 g/dL (6.3-8.2) 02/22/19 12:31 Albumin 2.9 g/dL (3.9-5) L 02/22/19 12:31 Albumin/Globulin Ratio 0.6 % 02/22/19 12:31 Urine Color Yellow (Yellow) 02/22/19 Unknown Urine Turbidity Cloudy (Clear) 02/22/19 Unknown Urine pH 5.0 (5.0-7.0) 02/22/19 Unknown Ur Specific [place] 1.014 (1.003-1.030) 02/22/19 Unknown Urine Protein 100 mg/dl mg/dL (Negative) 02/22/19 Unknown Urine Glucose (UA) Neg mg/dL (Negative) 02/22/19 Unknown Urine Ketones Neg mg/dL (Negative) 02/22/19 Unknown Urine Blood Mod (Negative) 02/22/19 Unknown Urine Nitrite Neg (Negative) 02/22/19 Unknown Urine Bilirubin Neg (Negative) 02/22/19 Unknown Urine Urobilinogen 2.0 mg/dL (<2.0) 02/22/19 Unknown Ur Leukocyte Esterase Neg (Negative) 02/22/19 Unknown Urine WBC (Auto) 12.0 /HPF (0.0-6.0) H 02/22/19 Unknown Urine RBC (Auto) 3.0 /HPF (0.0-6.0) 02/22/19 Unknown U Epithel Cells (Auto) < 1.0 /HPF (0-13.0) 02/22/19 Unknown Urine Bacteria (Auto) 1+ /HPF (Negative) 02/22/19 Unknown Urine Mucus Few /HPF 02/22/19 Unknown Urine Yeast (Budding) 1+ /HPF 02/22/19 Unknown Vancomycin Trough 12.7 ug/mL (5.0-20.0) 03/03/19 11:34 Random Vancomycin 9.1 ug/mL (0-40.0) 02/25/19 04:30 Blood Type O POSITIVE 02/22/19 14:34 Antibody Screen Negative 02/22/19 14:34 Active Medications - Current Medications Current Medications: Generic Name Dose Route Start Last Admin Trade Name Freq PRN Reason Stop Dose Admin Acetaminophen 650 mg 02/22/19 14:24 Tylenol PO Q6H PRN Pain, Mild (1-3) Acetaminophen/Hydrocodone Bitart 1 each 02/24/19 17:06 03/02/19 23:26 [place] 10/325 PO 1 each Q4H PRN Administration Pain , Severe (7-10) Hydromorphone HCl 1 mg 03/02/19 13:38 03/02/19 14:35 Dilaudid IV 1 mg DAILY PRN Administration Pain , Severe (7-10) Vancomycin HCl 1,500 mg/ 530 mls @ 333.333 mls/hr 02/26/19 00:00 03/03/19 13:22 Sodium Chloride IV 03/08/19 13:36 333.333 mls/hr Q12H RICA Administration Oxycodone HCl 20 mg 03/03/19 22:00 Oxycontin PO Q12HR RICA Nutrition/Malnutrition Assess - Dietary Evaluation Nutrition/Malnutrition Findings: Nutrition Notes Start: 02/23/19 10:19 Freq: Status: Active Protocol: Document 02/25/19 11:20 KS (Rec: 02/25/19 11:33 KS [id number]) Co-Sign 02/25/19 11:20 LP Nutrition Notes Initial or Follow up Reassessment Current Diagnosis Acute Kidney Injury,Diabetes Other Pertinent Diagnosis L medial thigh abscess Current Diet Renal diet Labs/Tests BUN 30 Cr 1.7 BG 108 Pertinent Medications NS at 150 ml/hr Height 5 ft 9 in Weight 90.7 kg Doyle Body Weight (kg) 72.72 BMI 29.5 Subjective/Other Information Pt reports consistently eating all of his meals and feels he is not getting enough food. Pt was brought Nepro today and was informed of the role of ONS. Pt reports feeling nauseous after taking medications but that it tends to quickly subside. Percent of energy/protein needs met: 100%/100% Current % PO Good (75-100%) Minimum of two criteria No physical signs of malnutrition #1 Nutrition Diagnosis Inadequate oral intake As Evidenced by Signs and Symptoms Pt eating 100% of meals Diagnosis Progress(for reassessment Improved documentation) Is patient on ventilator? No Is Patient Ambulatory and/or Out of Bed Yes REE-([place]-St. Jeor-ambulatory/OOB) [ 2310.594 [id number]] Kcal/Kg value to use for calculation 22 Approximate Energy Requirements Using 1995 kcal/Kg Calculation Used for Recommendations Kcal/kg Additional Notes PRO needs: 73-108g/day (0.8-1. 2 g/kg) Fluid needs 1ml/kcal or per MD Nutrition Intervention Change Diet Order: Continue Renal Diet until acute renal failure is resolved. Add double portions. Goal #1 Continue to meet at least 75% of estimated energy and protein needs via PO intakes Anticipated Discharge Needs: Unknown at this time Follow-Up By: 03/04/19 Additional Comments F/u for intakes, kidney labs
[2019-03-03] MEDS: oxyCODONE ER 20 MG TAB PO SCH (21:28)
[2019-03-04] MEDS: VANCOMYCIN 1,500 MG in SODIUM CHLORIDE 0.9% 500 ML 500 ML IV SCH ×2 (00:18→12:00)
[2019-03-04 08:28] LABS: Hematocrit 29.3 % (35.5-45.6); Hemoglobin 9.9 gm/dl (11.8-15.2); Mean Corpuscular HGB Conc 34 % (32-34); Mean Corpuscular Volume 88 fl (84-94); Platelet Count 418 K/mm3 (140-440); Red Blood Count 3.34 M/mm3 (3.65-5.03); Red Cell Distribution Width 13.5 % (13.2-15.2)
[2019-03-04 08:44] LABS: BUN/Creatinine Ratio 18; Blood Urea Nitrogen 18 mg/dL (9-20); Calcium 8.9 mg/dL (8.4-10.2); Hemolysis Index 32
[2019-03-04] MEDS: oxyCODONE ER 20 MG TAB PO SCH ×2 (09:22→21:14)
--- NOTE | 2019-03-04 12:15 | Progress Note ---
Assessment and Plan Assessment and plan: Patient is a 48-year-old male with no significant past medical history according to him who presents to the ED with complaint of redness and pain in the left medial thigh. He believes this may have started as a result of having some bites he was initially seen in the ED 3 days ago and was discharged on antibiotics with no improvement of symptoms. The patient reports that instead the area has become more indurated with increased redness warmt. He requires a cane to ambulate secondary to the severe pain and this is constant. He rates the pain a 10/10 intensity. He denies any nausea vomiting or diarrhea he denies any fever although reports chills Cultures: Blood cultures 02/22/2019 pending Urine cultures 02/22/2019 pending. Thich cultures 02/23/2019 - MRSA * CT of the lower extremity shows subcutaneous edema. No clear abscess noted (without contrast however) on admission MRSA Left thigh cellulitis/abscess: s/p excisional I-n-D 02/26/2019. Per wound care nurse and surgery patient will need wound VAC Case management consult placed with respect to this. Due to nature of wound patient will continue to need pain control during wound care change. Adjustment made to pain medications. Considering the amount of deformity wonder if patient will benefit from skin grafting when healing and infectious processes while in place. Drop in H/H stable at this point after drainage of abscess on 02/23/18 (he had copious amounts of bloody discharge from left thigh abscess after drainage): monitor closely Sepsis, poa due to left thigh abscess: treat with IV abx. Per ID Will treat to complete 10 days post debridement. When ready for discharge complete course with Bactrim DS BID. Stop date: 03/08/2019 assuming no further debridements. Acute kidney injury likely secondary to vasomotor nephropathy could also have an underlying CKD; tremendously improved Cr went from 3.4-->1.7-->1.5-->1.1, consulted Nephrology, input greatly appreciated, continue to monitor closely Hypertension: low salt diet Metabolic acidosis: consult Nephrology No clinical evidence of diabetes mellitus A1c is 5.7. We will continue with glycemic control for best wound healing. DVT ppx: hold anticoagulation due to bloody discharge from left thigh abscess and drop in H/H which has stabilized but still small bloody drainage Disposition: continue inpatient care, d/c once ID give final recommendations and cleared by Dr. Hoffman. Unfortunately patient is uninsured has extensive debridement with significant open area on the left thigh will need a wound VAC and aggressive wound care management. Case management reviewing to see what assistance can be offered. Patient may need more debridement - History Interval history: Patient seen and examined resting comfortably patient continues to report improvement in pain wound VAC changes and dressing changes planned for tomorrow. Hospitalist Physical - Physical exam Narrative exam: Gen: WDWN, NAD, Awake, Alert, Orientated HEENT: NCAT, EOMI, PERRL, OP Clear Neck: supple, no adenopathy, no thyromegaly, no JVD CVS/Heart: RRR, normal S1S2, pulses present bilaterally Chest/Lungs: CTA B, Symmetrical chest expansion, good air entry bilaterally GI/Abdomen: soft, NTND, good bowel sounds, no guarding or rebound /Bladder: no suprapubic tenderness, no CVA or paraspinal tenderness Extermity/Skin: anterior Left thigh red, tender to touch dressing in place but could be noted to still have sero-purulent drainage at the time of this assessment. Looked a wound dressing myself. Wound VAC applied MSK: FROM x 4 Neuro: CN 2-12 grossly intact, no new focal deficits Psych: calm - Constitutional Vitals: Temp Pulse Resp BP Pulse Ox 98.5 F 94 H 20 135/84 97 03/03/19 20:58 03/03/19 22:09 03/03/19 21:28 03/03/19 20:58 03/03/19 20:58 Results - Labs CBC & Chem 7: 03/04/19 07:04 03/04/19 07:04 Labs: Laboratory Last Values WBC 12.0 K/mm3 (4.5-11.0) H 03/04/19 07:04 RBC 3.34 M/mm3 (3.65-5.03) L 03/04/19 07:04 Hgb 9.9 gm/dl (11.8-15.2) L 03/04/19 07:04 Hct 29.3 % (35.5-45.6) L 03/04/19 07:04 MCV 88 fl (84-94) 03/04/19 07:04 MCH 30 pg (28-32) 03/04/19 07:04 MCHC 34 % (32-34) 03/04/19 07:04 RDW 13.5 % (13.2-15.2) 03/04/19 07:04 Plt Count 418 K/mm3 (140-440) 03/04/19 07:04 [place] % (Auto) 5.8 % (0.0-7.3) 02/27/19 07:32 Eos % (Auto) 1.1 % (0.0-4.3) 02/27/19 07:32 [place] # 1.4 K/mm3 (0.0-0.8) H 02/27/19 07:32 Eos # 0.3 K/mm3 (0.0-0.4) 02/27/19 07:32 Baso # 0.1 K/mm3 (0.0-0.1) 02/27/19 07:32 Add Manual Diff Complete 03/03/19 11:34 Total Counted 100 03/03/19 11:34 Seg Neutrophils % 85.2 % (40.0-70.0) H 02/27/19 07:32 Seg Neuts % (Manual) 75.0 % (40.0-70.0) H 03/03/19 11:34 Band Neutrophils % 0 % 03/03/19 11:34 Lymphocytes % (Manual) 18.0 % (13.4-35.0) 03/03/19 11:34 Reactive Lymphs % (Man) 0 % 03/03/19 11:34 Monocytes % (Manual) 4.0 % (0.0-7.3) 03/03/19 11:34 Eosinophils % (Manual) 2.0 % (0.0-4.3) 03/03/19 11:34 Basophils % (Manual) 0 % (0.0-1.8) 03/03/19 11:34 Metamyelocytes % 1.0 % 03/03/19 11:34 Myelocytes % 0 % 03/03/19 11:34 Promyelocytes % 0 % 03/03/19 11:34 Blast Cells % 0 % 03/03/19 11:34 Nucleated RBC % Not Reportable 03/03/19 11:34 Seg Neutrophils # 20.2 K/mm3 (1.8-7.7) H 02/27/19 07:32 Seg Neutrophils # Man 10.4 K/mm3 (1.8-7.7) H 03/03/19 11:34 Band Neutrophils # 0.0 K/mm3 03/03/19 11:34 Lymphocytes # (Manual) 2.5 K/mm3 (1.2-5.4) 03/03/19 11:34 Abs React Lymphs (Man) 0.0 K/mm3 03/03/19 11:34 Monocytes # (Manual) 0.6 K/mm3 (0.0-0.8) 03/03/19 11:34 Eosinophils # (Manual) 0.3 K/mm3 (0.0-0.4) 03/03/19 11:34 Basophils # (Manual) 0.0 K/mm3 (0.0-0.1) 03/03/19 11:34 Metamyelocytes # 0.1 K/mm3 03/03/19 11:34 Myelocytes # 0.0 K/mm3 03/03/19 11:34 Promyelocytes # 0.0 K/mm3 03/03/19 11:34 Blast Cells # 0.0 K/mm3 03/03/19 11:34 WBC Morphology Not Reportable 03/03/19 11:34 Hypersegmented Neuts Not Reportable 03/03/19 11:34 Hyposegmented Neuts Not Reportable 03/03/19 11:34 Hypogranular Neuts Not Reportable 03/03/19 11:34 Smudge Cells Not Reportable 03/03/19 11:34 Toxic Granulation Not Reportable 03/03/19 11:34 Toxic Vacuolation Not Reportable 03/03/19 11:34 Dohle Bodies Not Reportable 03/03/19 11:34 Pelger-Huet Anomaly Not Reportable 03/03/19 11:34 Rani Rods Not Reportable 03/03/19 11:34 Platelet Estimate Consistent w auto 03/03/19 11:34 Clumped Platelets Not Reportable 03/03/19 11:34 Plt Clumps, EDTA Not Reportable 03/03/19 11:34 Large Platelets Few 03/03/19 11:34 Giant Platelets Not Reportable 03/03/19 11:34 Platelet Satelliting Not Reportable 03/03/19 11:34 Plt Morphology Comment Not Reportable 03/03/19 11:34 RBC Morphology Normal 03/03/19 11:34 Dimorphic RBCs Not Reportable 03/03/19 11:34 Polychromasia Not Reportable 03/03/19 11:34 Hypochromasia Not Reportable 03/03/19 11:34 Poikilocytosis Not Reportable 03/03/19 11:34 Anisocytosis Not Reportable 03/03/19 11:34 Microcytosis Not Reportable 03/03/19 11:34 Macrocytosis Not Reportable 03/03/19 11:34 Spherocytes Not Reportable 03/03/19 11:34 Pappenheimer Bodies Not Reportable 03/03/19 11:34 Sickle Cells Not Reportable 03/03/19 11:34 Target Cells Not Reportable 03/03/19 11:34 Tear Drop Cells Not Reportable 03/03/19 11:34 Ovalocytes Not Reportable 03/03/19 11:34 Helmet Cells Not Reportable 03/03/19 11:34 [place] Bodies Not Reportable 03/03/19 11:34 [place] Rings Not Reportable 03/03/19 11:34 Chriss Cells Not Reportable 03/03/19 11:34 Bite Cells Not Reportable 03/03/19 11:34 Crenated Cell Not Reportable 03/03/19 11:34 Elliptocytes Not Reportable 03/03/19 11:34 Acanthocytes (Spur) Not Reportable 03/03/19 11:34 Rouleaux Not Reportable 03/03/19 11:34 Hemoglobin C Crystals Not Reportable 03/03/19 11:34 Schistocytes Not Reportable 03/03/19 11:34 Malaria parasites Not Reportable 03/03/19 11:34 [place] Bodies Not Reportable 03/03/19 11:34 Hem Pathologist Commnt No 03/03/19 11:34 Sodium 138 mmol/L (137-145) 03/04/19 07:04 Potassium 4.1 mmol/L (3.6-5.0) 03/04/19 07:04 Chloride 104.6 mmol/L (98-107) 03/04/19 07:04 Carbon Dioxide 21 mmol/L (22-30) L 03/04/19 07:04 Anion Gap 17 mmol/L 03/04/19 07:04 BUN 18 mg/dL (9-20) 03/04/19 07:04 Creatinine 1.0 mg/dL (0.8-1.5) 03/04/19 07:04 Estimated GFR > 60 ml/min 03/04/19 07:04 BUN/Creatinine Ratio 18 % 03/04/19 07:04 Glucose 99 mg/dL (75-100) 03/04/19 07:04 POC Glucose 94 (70-105) 02/25/19 11:42 Hemoglobin A1c 5.7 % (4-6) 02/22/19 22:30 Lactic Acid 1.00 mmol/L (0.7-2.0) 02/22/19 14:34 Calcium 8.9 mg/dL (8.4-10.2) 03/04/19 07:04 Total Bilirubin 0.70 mg/dL (0.1-1.2) 02/22/19 12:31 AST 25 units/L (5-40) 02/22/19 12:31 ALT 22 units/L (7-56) 02/22/19 12:31 Alkaline Phosphatase 116 units/L (35-129) 02/22/19 12:31 Total Protein 8.1 g/dL (6.3-8.2) 02/22/19 12:31 Albumin 2.9 g/dL (3.9-5) L 02/22/19 12:31 Albumin/Globulin Ratio 0.6 % 02/22/19 12:31 Urine Color Yellow (Yellow) 02/22/19 Unknown Urine Turbidity Cloudy (Clear) 02/22/19 Unknown Urine pH 5.0 (5.0-7.0) 02/22/19 Unknown Ur Specific [place] 1.014 (1.003-1.030) 02/22/19 Unknown Urine Protein 100 mg/dl mg/dL (Negative) 02/22/19 Unknown Urine Glucose (UA) Neg mg/dL (Negative) 02/22/19 Unknown Urine Ketones Neg mg/dL (Negative) 02/22/19 Unknown Urine Blood Mod (Negative) 02/22/19 Unknown Urine Nitrite Neg (Negative) 02/22/19 Unknown Urine Bilirubin Neg (Negative) 02/22/19 Unknown Urine Urobilinogen 2.0 mg/dL (<2.0) 02/22/19 Unknown Ur Leukocyte Esterase Neg (Negative) 02/22/19 Unknown Urine WBC (Auto) 12.0 /HPF (0.0-6.0) H 02/22/19 Unknown Urine RBC (Auto) 3.0 /HPF (0.0-6.0) 02/22/19 Unknown U Epithel Cells (Auto) < 1.0 /HPF (0-13.0) 02/22/19 Unknown Urine Bacteria (Auto) 1+ /HPF (Negative) 02/22/19 Unknown Urine Mucus Few /HPF 02/22/19 Unknown Urine Yeast (Budding) 1+ /HPF 02/22/19 Unknown Vancomycin Trough 12.7 ug/mL (5.0-20.0) 03/03/19 11:34 Random Vancomycin 9.1 ug/mL (0-40.0) 02/25/19 04:30 Blood Type O POSITIVE 02/22/19 14:34 Antibody Screen Negative 02/22/19 14:34 Active Medications - Current Medications Current Medications: Generic Name Dose Route Start Last Admin Trade Name Freq PRN Reason Stop Dose Admin Acetaminophen 650 mg 02/22/19 14:24 Tylenol PO Q6H PRN Pain, Mild (1-3) Acetaminophen/Hydrocodone Bitart 1 each 02/24/19 17:06 03/02/19 23:26 [place] 10/325 PO 1 each Q4H PRN Administration Pain , Severe (7-10) Hydromorphone HCl 1 mg 03/02/19 13:38 03/02/19 14:35 Dilaudid IV 1 mg DAILY PRN Administration Pain , Severe (7-10) Vancomycin HCl 1,500 mg/ 530 mls @ 333.333 mls/hr 02/26/19 00:00 03/04/19 00:18 Sodium Chloride IV 03/08/19 13:36 333.333 mls/hr Q12H RICA Administration Oxycodone HCl 20 mg 03/03/19 22:00 03/04/19 09:22 Oxycontin PO 20 mg Q12HR RICA Administration Nutrition/Malnutrition Assess - Dietary Evaluation Nutrition/Malnutrition Findings: Nutrition Notes Start: 02/23/19 10:19 Freq: Status: Active Protocol: Document 02/25/19 11:20 KS (Rec: 02/25/19 11:33 KS [id number]) Co-Sign 02/25/19 11:20 LP Nutrition Notes Initial or Follow up Reassessment Current Diagnosis Acute Kidney Injury,Diabetes Other Pertinent Diagnosis L medial thigh abscess Current Diet Renal diet Labs/Tests BUN 30 Cr 1.7 BG 108 Pertinent Medications NS at 150 ml/hr Height 5 ft 9 in Weight 90.7 kg [place] Body Weight (kg) 72.72 BMI 29.5 Subjective/Other Information Pt reports consistently eating all of his meals and feels he is not getting enough food. Pt was brought Nepro today and was informed of the role of ONS. Pt reports feeling nauseous after taking medications but that it tends to quickly subside. Percent of energy/protein needs met: 100%/100% Current % PO Good (75-100%) Minimum of two criteria No physical signs of malnutrition #1 Nutrition Diagnosis Inadequate oral intake As Evidenced by Signs and Symptoms Pt eating 100% of meals Diagnosis Progress(for reassessment Improved documentation) Is patient on ventilator? No Is Patient Ambulatory and/or Out of Bed Yes REE-([facility]-ambulatory/OOB) [ 2310.594 [id number]] Kcal/Kg value to use for calculation 22 Approximate Energy Requirements Using 1995 kcal/Kg Calculation Used for Recommendations Kcal/kg Additional Notes PRO needs: 73-108g/day (0.8-1. 2 g/kg) Fluid needs 1ml/kcal or per MD Nutrition Intervention Change Diet Order: Continue Renal Diet until acute renal failure is resolved. Add double portions. Goal #1 Continue to meet at least 75% of estimated energy and protein needs via PO intakes Anticipated Discharge Needs: Unknown at this time Follow-Up By: 03/04/19 Additional Comments F/u for intakes, kidney labs
[2019-03-05] MEDS: VANCOMYCIN 1,500 MG in SODIUM CHLORIDE 0.9% 500 ML 500 ML IV SCH ×3 (00:25→23:10)
[2019-03-05 05:51] LABS: Hematocrit 28.1 % (35.5-45.6); Hemoglobin 9.2 gm/dl (11.8-15.2); Mean Corpuscular HGB Conc 33 % (32-34); Mean Corpuscular Volume 88 fl (84-94); Platelet Count 493 K/mm3 (140-440); Red Blood Count 3.19 M/mm3 (3.65-5.03); Red Cell Distribution Width 13.7 % (13.2-15.2)
[2019-03-05] MEDS ORDERED: SODIUM CHLORIDE 0.9% 250ML 250 ML ONE (08:46)
[2019-03-05] MEDS: oxyCODONE ER 20 MG TAB PO SCH ×2 (09:10→22:48)
[2019-03-05] MEDS ORDERED: SODIUM CHLORIDE 0.9% IRR 500 ML BOTTLE IR ONE (09:30)
--- NOTE | 2019-03-05 14:41 | Progress Note ---
Assessment and Plan Assessment and plan: Patient is a 48-year-old male with no significant past medical history according to him who presents to the ED with complaint of redness and pain in the left medial thigh. He believes this may have started as a result of having some bites he was initially seen in the ED 3 days ago and was discharged on antibiotics with no improvement of symptoms. The patient reports that instead the area has become more indurated with increased redness warmt. He requires a cane to ambulate secondary to the severe pain and this is constant. He rates the pain a 10/10 intensity. He denies any nausea vomiting or diarrhea he denies any fever although reports chills Cultures: Blood cultures 02/22/2019 pending Urine cultures 02/22/2019 pending. Thich cultures 02/23/2019 - MRSA * CT of the lower extremity shows subcutaneous edema. No clear abscess noted (without contrast however) on admission MRSA Left thigh cellulitis/abscess: s/p excisional I-n-D 02/26/2019. Per wound care nurse and surgery patient will need wound VAC Case management consult placed with respect to this. Due to nature of wound patient will continue to need pain control during wound care change. Adjustment made to pain medications. Considering the amount of deformity wonder if patient will benefit from skin grafting when healing and infectious processes while in place. Anemia chronic stable likely secondary to infectious process: after drainage of abscess on 02/23/18 (he had copious amounts of bloody discharge from left thigh abscess after drainage): monitor closely Sepsis, poa due to left thigh abscess: treat with IV abx. Per ID Will treat to complete 10 days post debridement. When ready for discharge complete course with Bactrim DS BID. Stop date: 03/08/2019 assuming no further debridements. Acute kidney injury likely secondary to vasomotor nephropathy could also have an underlying CKD; tremendously improved Cr went from 3.4-->1.7-->1.5-->1.1, consulted Nephrology, input greatly appreciated, continue to monitor closely Hypertension: low salt diet Metabolic acidosis: consult Nephrology No clinical evidence of diabetes mellitus A1c is 5.7. We will continue with glycemic control for best wound healing. DVT ppx: hold anticoagulation due to bloody discharge from left thigh abscess and drop in H/H which has stabilized but still small bloody drainage Disposition: continue inpatient care, d/c once ID give final recommendations and cleared by Dr. Hoffman. Unfortunately patient is uninsured has extensive debridement with significant open area on the left thigh will need a wound VAC and aggressive wound care management. Case management reviewing to see what assistance can be offered. 4 visits from home health has been obtained and appreciated. Awaiting final decision from hospital about wound care clinic visits. - History Interval history: Patient seen and examined resting comfortably patient continues to report improvement in pain wound VAC changes and dressing changes planned for tomorrow. Hospitalist Physical - Physical exam Narrative exam: Gen: WDWN, NAD, Awake, Alert, Orientated HEENT: NCAT, EOMI, PERRL, OP Clear Neck: supple, no adenopathy, no thyromegaly, no JVD CVS/Heart: RRR, normal S1S2, pulses present bilaterally Chest/Lungs: CTA B, Symmetrical chest expansion, good air entry bilaterally GI/Abdomen: soft, NTND, good bowel sounds, no guarding or rebound /Bladder: no suprapubic tenderness, no CVA or paraspinal tenderness Extermity/Skin: anterior Left thigh dressing and wound VAC applied MSK: FROM x 4 Neuro: CN 2-12 grossly intact, no new focal deficits Psych: calm - Constitutional Vitals: Temp Pulse Resp BP Pulse Ox 97.6 F 92 H 18 123/78 96 03/05/19 11:43 03/05/19 11:43 03/05/19 11:43 03/05/19 11:43 03/05/19 11:43 Results - Labs CBC & Chem 7: 03/05/19 05:05 03/04/19 07:04 Labs: Laboratory Last Values WBC 12.6 K/mm3 (4.5-11.0) H 03/05/19 05:05 RBC 3.19 M/mm3 (3.65-5.03) L 03/05/19 05:05 Hgb 9.2 gm/dl (11.8-15.2) L 03/05/19 05:05 Hct 28.1 % (35.5-45.6) L 03/05/19 05:05 MCV 88 fl (84-94) 03/05/19 05:05 MCH 29 pg (28-32) 03/05/19 05:05 MCHC 33 % (32-34) 03/05/19 05:05 RDW 13.7 % (13.2-15.2) 03/05/19 05:05 Plt Count 493 K/mm3 (140-440) H 03/05/19 05:05 [place] % (Auto) 5.8 % (0.0-7.3) 02/27/19 07:32 Eos % (Auto) 1.1 % (0.0-4.3) 02/27/19 07:32 [place] # 1.4 K/mm3 (0.0-0.8) H 02/27/19 07:32 Eos # 0.3 K/mm3 (0.0-0.4) 02/27/19 07:32 Baso # 0.1 K/mm3 (0.0-0.1) 02/27/19 07:32 Add Manual Diff Complete 03/03/19 11:34 Total Counted 100 03/03/19 11:34 Seg Neutrophils % 85.2 % (40.0-70.0) H 02/27/19 07:32 Seg Neuts % (Manual) 75.0 % (40.0-70.0) H 03/03/19 11:34 Band Neutrophils % 0 % 03/03/19 11:34 Lymphocytes % (Manual) 18.0 % (13.4-35.0) 03/03/19 11:34 Reactive Lymphs % (Man) 0 % 03/03/19 11:34 Monocytes % (Manual) 4.0 % (0.0-7.3) 03/03/19 11:34 Eosinophils % (Manual) 2.0 % (0.0-4.3) 03/03/19 11:34 Basophils % (Manual) 0 % (0.0-1.8) 03/03/19 11:34 Metamyelocytes % 1.0 % 03/03/19 11:34 Myelocytes % 0 % 03/03/19 11:34 Promyelocytes % 0 % 03/03/19 11:34 Blast Cells % 0 % 03/03/19 11:34 Nucleated RBC % Not Reportable 03/03/19 11:34 Seg Neutrophils # 20.2 K/mm3 (1.8-7.7) H 02/27/19 07:32 Seg Neutrophils # Man 10.4 K/mm3 (1.8-7.7) H 03/03/19 11:34 Band Neutrophils # 0.0 K/mm3 03/03/19 11:34 Lymphocytes # (Manual) 2.5 K/mm3 (1.2-5.4) 03/03/19 11:34 Abs React Lymphs (Man) 0.0 K/mm3 03/03/19 11:34 Monocytes # (Manual) 0.6 K/mm3 (0.0-0.8) 03/03/19 11:34 Eosinophils # (Manual) 0.3 K/mm3 (0.0-0.4) 03/03/19 11:34 Basophils # (Manual) 0.0 K/mm3 (0.0-0.1) 03/03/19 11:34 Metamyelocytes # 0.1 K/mm3 03/03/19 11:34 Myelocytes # 0.0 K/mm3 03/03/19 11:34 Promyelocytes # 0.0 K/mm3 03/03/19 11:34 Blast Cells # 0.0 K/mm3 03/03/19 11:34 WBC Morphology Not Reportable 03/03/19 11:34 Hypersegmented Neuts Not Reportable 03/03/19 11:34 Hyposegmented Neuts Not Reportable 03/03/19 11:34 Hypogranular Neuts Not Reportable 03/03/19 11:34 Smudge Cells Not Reportable 03/03/19 11:34 Toxic Granulation Not Reportable 03/03/19 11:34 Toxic Vacuolation Not Reportable 03/03/19 11:34 Dohle Bodies Not Reportable 03/03/19 11:34 Pelger-Huet Anomaly Not Reportable 03/03/19 11:34 Rnai Rods Not Reportable 03/03/19 11:34 Platelet Estimate Consistent w auto 03/03/19 11:34 Clumped Platelets Not Reportable 03/03/19 11:34 Plt Clumps, EDTA Not Reportable 03/03/19 11:34 Large Platelets Few 03/03/19 11:34 Giant Platelets Not Reportable 03/03/19 11:34 Platelet Satelliting Not Reportable 03/03/19 11:34 Plt Morphology Comment Not Reportable 03/03/19 11:34 RBC Morphology Normal 03/03/19 11:34 Dimorphic RBCs Not Reportable 03/03/19 11:34 Polychromasia Not Reportable 03/03/19 11:34 Hypochromasia Not Reportable 03/03/19 11:34 Poikilocytosis Not Reportable 03/03/19 11:34 Anisocytosis Not Reportable 03/03/19 11:34 Microcytosis Not Reportable 03/03/19 11:34 Macrocytosis Not Reportable 03/03/19 11:34 Spherocytes Not Reportable 03/03/19 11:34 Pappenheimer Bodies Not Reportable 03/03/19 11:34 Sickle Cells Not Reportable 03/03/19 11:34 Target Cells Not Reportable 03/03/19 11:34 Tear Drop Cells Not Reportable 03/03/19 11:34 Ovalocytes Not Reportable 03/03/19 11:34 Helmet Cells Not Reportable 03/03/19 11:34 [place] Bodies Not Reportable 03/03/19 11:34 [place] Rings Not Reportable 03/03/19 11:34 Chriss Cells Not Reportable 03/03/19 11:34 Bite Cells Not Reportable 03/03/19 11:34 Crenated Cell Not Reportable 03/03/19 11:34 Elliptocytes Not Reportable 03/03/19 11:34 Acanthocytes (Spur) Not Reportable 03/03/19 11:34 Rouleaux Not Reportable 03/03/19 11:34 Hemoglobin C Crystals Not Reportable 03/03/19 11:34 Schistocytes Not Reportable 03/03/19 11:34 Malaria parasites Not Reportable 03/03/19 11:34 [place] Bodies Not Reportable 03/03/19 11:34 Hem Pathologist Commnt No 03/03/19 11:34 Sodium 138 mmol/L (137-145) 03/04/19 07:04 Potassium 4.1 mmol/L (3.6-5.0) 03/04/19 07:04 Chloride 104.6 mmol/L (98-107) 03/04/19 07:04 Carbon Dioxide 21 mmol/L (22-30) L 03/04/19 07:04 Anion Gap 17 mmol/L 03/04/19 07:04 BUN 18 mg/dL (9-20) 03/04/19 07:04 Creatinine 1.0 mg/dL (0.8-1.5) 03/04/19 07:04 Estimated GFR > 60 ml/min 03/04/19 07:04 BUN/Creatinine Ratio 18 % 03/04/19 07:04 Glucose 99 mg/dL (75-100) 03/04/19 07:04 POC Glucose 94 (70-105) 02/25/19 11:42 Hemoglobin A1c 5.7 % (4-6) 02/22/19 22:30 Lactic Acid 1.00 mmol/L (0.7-2.0) 02/22/19 14:34 Calcium 8.9 mg/dL (8.4-10.2) 03/04/19 07:04 Total Bilirubin 0.70 mg/dL (0.1-1.2) 02/22/19 12:31 AST 25 units/L (5-40) 02/22/19 12:31 ALT 22 units/L (7-56) 02/22/19 12:31 Alkaline Phosphatase 116 units/L (35-129) 02/22/19 12:31 Total Protein 8.1 g/dL (6.3-8.2) 02/22/19 12:31 Albumin 2.9 g/dL (3.9-5) L 02/22/19 12:31 Albumin/Globulin Ratio 0.6 % 02/22/19 12:31 Urine Color Yellow (Yellow) 02/22/19 Unknown Urine Turbidity Cloudy (Clear) 02/22/19 Unknown Urine pH 5.0 (5.0-7.0) 02/22/19 Unknown Ur Specific [place] 1.014 (1.003-1.030) 02/22/19 Unknown Urine Protein 100 mg/dl mg/dL (Negative) 02/22/19 Unknown Urine Glucose (UA) Neg mg/dL (Negative) 02/22/19 Unknown Urine Ketones Neg mg/dL (Negative) 02/22/19 Unknown Urine Blood Mod (Negative) 02/22/19 Unknown Urine Nitrite Neg (Negative) 02/22/19 Unknown Urine Bilirubin Neg (Negative) 02/22/19 Unknown Urine Urobilinogen 2.0 mg/dL (<2.0) 02/22/19 Unknown Ur Leukocyte Esterase Neg (Negative) 02/22/19 Unknown Urine WBC (Auto) 12.0 /HPF (0.0-6.0) H 02/22/19 Unknown Urine RBC (Auto) 3.0 /HPF (0.0-6.0) 02/22/19 Unknown U Epithel Cells (Auto) < 1.0 /HPF (0-13.0) 02/22/19 Unknown Urine Bacteria (Auto) 1+ /HPF (Negative) 02/22/19 Unknown Urine Mucus Few /HPF 02/22/19 Unknown Urine Yeast (Budding) 1+ /HPF 02/22/19 Unknown Vancomycin Trough 12.7 ug/mL (5.0-20.0) 03/03/19 11:34 Random Vancomycin 9.1 ug/mL (0-40.0) 02/25/19 04:30 Blood Type O POSITIVE 02/22/19 14:34 Antibody Screen Negative 02/22/19 14:34 Active Medications - Current Medications Current Medications: Generic Name Dose Route Start Last Admin Trade Name Freq PRN Reason Stop Dose Admin Acetaminophen 650 mg 02/22/19 14:24 Tylenol PO Q6H PRN Pain, Mild (1-3) Acetaminophen/Hydrocodone Bitart 1 each 02/24/19 17:06 03/02/19 23:26 [place] 10/325 PO 1 each Q4H PRN Administration Pain , Severe (7-10) Hydromorphone HCl 1 mg 03/02/19 13:38 03/02/19 14:35 Dilaudid IV 1 mg DAILY PRN Administration Pain , Severe (7-10) Vancomycin HCl 1,500 mg/ 530 mls @ 333.333 mls/hr 02/26/19 00:00 03/05/19 11:41 Sodium Chloride IV 03/08/19 13:36 333.333 mls/hr Q12H RICA Administration Oxycodone HCl 20 mg 03/03/19 22:00 03/05/19 09:10 Oxycontin PO 20 mg Q12HR RICA Administration Nutrition/Malnutrition Assess - Dietary Evaluation Nutrition/Malnutrition Findings: Nutrition Notes Start: 02/23/19 10:19 Freq: Status: Active Protocol: Document 03/04/19 14:50 [email or web address] (Rec: 03/04/19 15:00 [email or web address] [id number]) Co-Sign 03/04/19 14:50 LP Nutrition Notes Initial or Follow up Reassessment Current Diagnosis Diabetes Other Pertinent Diagnosis L medial thigh abscess Current Diet Regular Labs/Tests Reviewed Pertinent Medications Reviewed Height 5 ft 9 in Weight 102 kg [place] Body Weight (kg) 72.72 BMI 33.2 Weight change and time frame Wt change noted. Wt is per pt bedscale Subjective/Other Information F/U for intakes. Pt stated his appetite is fair and mentioned that it's "off and on". Pt ate acouple bites of breakfast and nibbled on his meals yesterday. Pt stated that he had one nepro today and one yesterday. Percent of energy/protein needs met: 74%/60% Burn Absent Trauma Absent GI Symptoms None Minimum of two criteria No physical signs of malnutrition #1 Nutrition Diagnosis Inadequate oral intake As Evidenced by Signs and Symptoms Pt meeting 74%/60% energy and protein needs Diagnosis Progress(for reassessment Worsened documentation) Is patient on ventilator? No Is Patient Ambulatory and/or Out of Bed Yes REE-([facility]-ambulatory/OOB) [ 2457.494 [id number]] Kcal/Kg value to use for calculation 19 Approximate Energy Requirements Using 1938 kcal/Kg Calculation Used for Recommendations Kcal/kg Additional Notes PRO needs: 73-108g/day (0.8-1. 2 g/kg) using previous charted wt Fluid needs 1ml/kcal or per MD Nutrition Intervention Change Diet Order: Continue current Add Supplement/Snack (indicate name/kcal Nepro daily /protein ) Provides kCal: 425 Provides Protein (gm) 19 Goal #1 Continue to meet at least 75% of estimated energy and protein needs via PO intakes Anticipated Discharge Needs: Regular diet Follow-Up By: 03/09/19 Additional Comments F/U for PO and ONS intakes
[2019-03-06 05:34] LABS: Hematocrit 30.5 % (35.5-45.6); Hemoglobin 10.1 gm/dl (11.8-15.2); Mean Corpuscular HGB Conc 33 % (32-34); Mean Corpuscular Volume 87 fl (84-94); Platelet Count 508 K/mm3 (140-440); Red Blood Count 3.48 M/mm3 (3.65-5.03); Red Cell Distribution Width 13.6 % (13.2-15.2)
[2019-03-06 05:49] LABS: BUN/Creatinine Ratio 15; Blood Urea Nitrogen 16 mg/dL (9-20); Hemolysis Index 2
[2019-03-06] MEDS: oxyCODONE ER 20 MG TAB PO SCH ×2 (11:28→21:33)
--- NOTE | 2019-03-06 13:31 | Progress Note ---
Assessment and Plan Assessment and plan: Patient is a 48-year-old male with no significant past medical history according to him who presents to the ED with complaint of redness and pain in the left medial thigh. He believes this may have started as a result of having some bites he was initially seen in the ED 3 days ago and was discharged on antibiotics with no improvement of symptoms. The patient reports that instead the area has become more indurated with increased redness warmt. He requires a cane to ambulate secondary to the severe pain and this is constant. He rates the pain a 10/10 intensity. He denies any nausea vomiting or diarrhea he denies any fever although reports chills Cultures: Blood cultures 02/22/2019 pending Urine cultures 02/22/2019 pending. Thich cultures 02/23/2019 - MRSA * CT of the lower extremity shows subcutaneous edema. No clear abscess noted (without contrast however) on admission MRSA Left thigh cellulitis/abscess: s/p excisional I-n-D 02/26/2019. Per wound care nurse and surgery patient will need wound VAC Case management consult placed with respect to this. Due to nature of wound patient will continue to need pain control during wound care change. Adjustment made to pain medications. Considering the amount of deformity wonder if patient will benefit from skin grafting when healing and infectious processes while in place. Anemia chronic stable likely secondary to infectious process: after drainage of abscess on 02/23/18 (he had copious amounts of bloody discharge from left thigh abscess after drainage): monitor closely Sepsis, poa due to left thigh abscess: treat with IV abx. Per ID Will treat to complete 10 days post debridement. When ready for discharge complete course with Bactrim DS BID. Stop date: 03/08/2019 assuming no further debridements. Acute kidney injury likely secondary to vasomotor nephropathy could also have an underlying CKD; tremendously improved Cr went from 3.4-->1.7-->1.5-->1.1, consulted Nephrology, input greatly appreciated, continue to monitor closely Hypertension: low salt diet Metabolic acidosis: consult Nephrology No clinical evidence of diabetes mellitus A1c is 5.7. We will continue with glycemic control for best wound healing. DVT ppx: hold anticoagulation due to bloody discharge from left thigh abscess and drop in H/H which has stabilized but still small bloody drainage Disposition: continue inpatient care, d/c once ID give final recommendations and cleared by Dr. Hoffman. Unfortunately patient is uninsured has extensive debridement with significant open area on the left thigh will need a wound VAC and aggressive wound care management. Case management reviewing to see what assistance can be offered. 4 visits from home health has been obtained and appreciated. Awaiting final decision from hospital about wound care clinic visits. Anticipate discharge in am - History Interval history: Patient seen and examined resting comfortably patient continues to report improvement in pain no adverse event reported overnight Hospitalist Physical - Physical exam Narrative exam: Gen: WDWN, NAD, Awake, Alert, Orientated HEENT: NCAT, EOMI, PERRL, OP Clear Neck: supple, no adenopathy, no thyromegaly, no JVD CVS/Heart: RRR, normal S1S2, pulses present bilaterally Chest/Lungs: CTA B, Symmetrical chest expansion, good air entry bilaterally GI/Abdomen: soft, NTND, good bowel sounds, no guarding or rebound /Bladder: no suprapubic tenderness, no CVA or paraspinal tenderness Extermity/Skin: anterior Left thigh dressing and wound VAC applied MSK: FROM x 4 Neuro: CN 2-12 grossly intact, no new focal deficits Psych: calm - Constitutional Vitals: Temp Pulse Resp BP Pulse Ox 97.9 F 96 H 22 138/80 96 03/06/19 11:46 03/06/19 11:46 03/06/19 11:46 03/06/19 11:46 03/06/19 11:46 Results - Labs CBC & Chem 7: 03/06/19 04:40 03/06/19 04:40 Labs: Laboratory Last Values WBC 11.1 K/mm3 (4.5-11.0) H 03/06/19 04:40 RBC 3.48 M/mm3 (3.65-5.03) L 03/06/19 04:40 Hgb 10.1 gm/dl (11.8-15.2) L 03/06/19 04:40 Hct 30.5 % (35.5-45.6) L 03/06/19 04:40 MCV 87 fl (84-94) 03/06/19 04:40 MCH 29 pg (28-32) 03/06/19 04:40 MCHC 33 % (32-34) 03/06/19 04:40 RDW 13.6 % (13.2-15.2) 03/06/19 04:40 Plt Count 508 K/mm3 (140-440) H 03/06/19 04:40 [place] % (Auto) 5.8 % (0.0-7.3) 02/27/19 07:32 Eos % (Auto) 1.1 % (0.0-4.3) 02/27/19 07:32 [place] # 1.4 K/mm3 (0.0-0.8) H 02/27/19 07:32 Eos # 0.3 K/mm3 (0.0-0.4) 02/27/19 07:32 Baso # 0.1 K/mm3 (0.0-0.1) 02/27/19 07:32 Add Manual Diff Complete 03/03/19 11:34 Total Counted 100 03/03/19 11:34 Seg Neutrophils % 85.2 % (40.0-70.0) H 02/27/19 07:32 Seg Neuts % (Manual) 75.0 % (40.0-70.0) H 03/03/19 11:34 Band Neutrophils % 0 % 03/03/19 11:34 Lymphocytes % (Manual) 18.0 % (13.4-35.0) 03/03/19 11:34 Reactive Lymphs % (Man) 0 % 03/03/19 11:34 Monocytes % (Manual) 4.0 % (0.0-7.3) 03/03/19 11:34 Eosinophils % (Manual) 2.0 % (0.0-4.3) 03/03/19 11:34 Basophils % (Manual) 0 % (0.0-1.8) 03/03/19 11:34 Metamyelocytes % 1.0 % 03/03/19 11:34 Myelocytes % 0 % 03/03/19 11:34 Promyelocytes % 0 % 03/03/19 11:34 Blast Cells % 0 % 03/03/19 11:34 Nucleated RBC % Not Reportable 03/03/19 11:34 Seg Neutrophils # 20.2 K/mm3 (1.8-7.7) H 02/27/19 07:32 Seg Neutrophils # Man 10.4 K/mm3 (1.8-7.7) H 03/03/19 11:34 Band Neutrophils # 0.0 K/mm3 03/03/19 11:34 Lymphocytes # (Manual) 2.5 K/mm3 (1.2-5.4) 03/03/19 11:34 Abs React Lymphs (Man) 0.0 K/mm3 03/03/19 11:34 Monocytes # (Manual) 0.6 K/mm3 (0.0-0.8) 03/03/19 11:34 Eosinophils # (Manual) 0.3 K/mm3 (0.0-0.4) 03/03/19 11:34 Basophils # (Manual) 0.0 K/mm3 (0.0-0.1) 03/03/19 11:34 Metamyelocytes # 0.1 K/mm3 03/03/19 11:34 Myelocytes # 0.0 K/mm3 03/03/19 11:34 Promyelocytes # 0.0 K/mm3 03/03/19 11:34 Blast Cells # 0.0 K/mm3 03/03/19 11:34 WBC Morphology Not Reportable 03/03/19 11:34 Hypersegmented Neuts Not Reportable 03/03/19 11:34 Hyposegmented Neuts Not Reportable 03/03/19 11:34 Hypogranular Neuts Not Reportable 03/03/19 11:34 Smudge Cells Not Reportable 03/03/19 11:34 Toxic Granulation Not Reportable 03/03/19 11:34 Toxic Vacuolation Not Reportable 03/03/19 11:34 Dohle Bodies Not Reportable 03/03/19 11:34 Pelger-Huet Anomaly Not Reportable 03/03/19 11:34 Rani Rods Not Reportable 03/03/19 11:34 Platelet Estimate Consistent w auto 03/03/19 11:34 Clumped Platelets Not Reportable 03/03/19 11:34 Plt Clumps, EDTA Not Reportable 03/03/19 11:34 Large Platelets Few 03/03/19 11:34 Giant Platelets Not Reportable 03/03/19 11:34 Platelet Satelliting Not Reportable 03/03/19 11:34 Plt Morphology Comment Not Reportable 03/03/19 11:34 RBC Morphology Normal 03/03/19 11:34 Dimorphic RBCs Not Reportable 03/03/19 11:34 Polychromasia Not Reportable 03/03/19 11:34 Hypochromasia Not Reportable 03/03/19 11:34 Poikilocytosis Not Reportable 03/03/19 11:34 Anisocytosis Not Reportable 03/03/19 11:34 Microcytosis Not Reportable 03/03/19 11:34 Macrocytosis Not Reportable 03/03/19 11:34 Spherocytes Not Reportable 03/03/19 11:34 Pappenheimer Bodies Not Reportable 03/03/19 11:34 Sickle Cells Not Reportable 03/03/19 11:34 Target Cells Not Reportable 03/03/19 11:34 Tear Drop Cells Not Reportable 03/03/19 11:34 Ovalocytes Not Reportable 03/03/19 11:34 Helmet Cells Not Reportable 03/03/19 11:34 Dexter-Vazquez Bodies Not Reportable 03/03/19 11:34 [place] Rings Not Reportable 03/03/19 11:34 Chriss Cells Not Reportable 03/03/19 11:34 Bite Cells Not Reportable 03/03/19 11:34 Crenated Cell Not Reportable 03/03/19 11:34 Elliptocytes Not Reportable 03/03/19 11:34 Acanthocytes (Spur) Not Reportable 03/03/19 11:34 Rouleaux Not Reportable 03/03/19 11:34 Hemoglobin C Crystals Not Reportable 03/03/19 11:34 Schistocytes Not Reportable 03/03/19 11:34 Malaria parasites Not Reportable 03/03/19 11:34 Elmer Bodies Not Reportable 03/03/19 11:34 Hem Pathologist Commnt No 03/03/19 11:34 Sodium 140 mmol/L (137-145) 03/06/19 04:40 Potassium 4.1 mmol/L (3.6-5.0) 03/06/19 04:40 Chloride 101.1 mmol/L (98-107) 03/06/19 04:40 Carbon Dioxide 25 mmol/L (22-30) 03/06/19 04:40 Anion Gap 18 mmol/L 03/06/19 04:40 BUN 16 mg/dL (9-20) 03/06/19 04:40 Creatinine 1.1 mg/dL (0.8-1.5) 03/06/19 04:40 Estimated GFR > 60 ml/min 03/06/19 04:40 BUN/Creatinine Ratio 15 % 03/06/19 04:40 Glucose 108 mg/dL (75-100) H 03/06/19 04:40 POC Glucose 94 (70-105) 02/25/19 11:42 Hemoglobin A1c 5.7 % (4-6) 02/22/19 22:30 Lactic Acid 1.00 mmol/L (0.7-2.0) 02/22/19 14:34 Calcium 9.0 mg/dL (8.4-10.2) 03/06/19 04:40 Total Bilirubin 0.70 mg/dL (0.1-1.2) 02/22/19 12:31 AST 25 units/L (5-40) 02/22/19 12:31 ALT 22 units/L (7-56) 02/22/19 12:31 Alkaline Phosphatase 116 units/L (35-129) 02/22/19 12:31 Total Protein 8.1 g/dL (6.3-8.2) 02/22/19 12:31 Albumin 2.9 g/dL (3.9-5) L 02/22/19 12:31 Albumin/Globulin Ratio 0.6 % 02/22/19 12:31 Urine Color Yellow (Yellow) 02/22/19 Unknown Urine Turbidity Cloudy (Clear) 02/22/19 Unknown Urine pH 5.0 (5.0-7.0) 02/22/19 Unknown Ur Specific [place] 1.014 (1.003-1.030) 02/22/19 Unknown Urine Protein 100 mg/dl mg/dL (Negative) 02/22/19 Unknown Urine Glucose (UA) Neg mg/dL (Negative) 02/22/19 Unknown Urine Ketones Neg mg/dL (Negative) 02/22/19 Unknown Urine Blood Mod (Negative) 02/22/19 Unknown Urine Nitrite Neg (Negative) 02/22/19 Unknown Urine Bilirubin Neg (Negative) 02/22/19 Unknown Urine Urobilinogen 2.0 mg/dL (<2.0) 02/22/19 Unknown Ur Leukocyte Esterase Neg (Negative) 02/22/19 Unknown Urine WBC (Auto) 12.0 /HPF (0.0-6.0) H 02/22/19 Unknown Urine RBC (Auto) 3.0 /HPF (0.0-6.0) 02/22/19 Unknown U Epithel Cells (Auto) < 1.0 /HPF (0-13.0) 02/22/19 Unknown Urine Bacteria (Auto) 1+ /HPF (Negative) 02/22/19 Unknown Urine Mucus Few /HPF 02/22/19 Unknown Urine Yeast (Budding) 1+ /HPF 02/22/19 Unknown Vancomycin Trough 12.7 ug/mL (5.0-20.0) 03/03/19 11:34 Random Vancomycin 9.1 ug/mL (0-40.0) 02/25/19 04:30 Blood Type O POSITIVE 02/22/19 14:34 Antibody Screen Negative 02/22/19 14:34 Active Medications - Current Medications Current Medications: Generic Name Dose Route Start Last Admin Trade Name Freq PRN Reason Stop Dose Admin Acetaminophen 650 mg 02/22/19 14:24 Tylenol PO Q6H PRN Pain, Mild (1-3) Acetaminophen/Hydrocodone Bitart 1 each 02/24/19 17:06 03/02/19 23:26 [place] 10/325 PO 1 each Q4H PRN Administration Pain , Severe (7-10) Hydromorphone HCl 1 mg 03/02/19 13:38 03/02/19 14:35 Dilaudid IV 1 mg DAILY PRN Administration Pain , Severe (7-10) Vancomycin HCl 1,500 mg/ 530 mls @ 333.333 mls/hr 02/26/19 00:00 03/05/19 23:10 Sodium Chloride IV 03/08/19 13:36 333.333 mls/hr Q12H RICA Administration Oxycodone HCl 20 mg 03/03/19 22:00 03/06/19 11:28 Oxycontin PO 20 mg Q12HR RICA Administration Nutrition/Malnutrition Assess - Dietary Evaluation Nutrition/Malnutrition Findings: Nutrition Notes Start: 02/23/19 10:19 Freq: Status: Active Protocol: Document 03/04/19 14:50 [email or web address] (Rec: 03/04/19 15:00 [email or web address] [id number]) Co-Sign 03/04/19 14:50 LP Nutrition Notes Initial or Follow up Reassessment Current Diagnosis Diabetes Other Pertinent Diagnosis L medial thigh abscess Current Diet Regular Labs/Tests Reviewed Pertinent Medications Reviewed Height 5 ft 9 in Weight 102 kg [place] Body Weight (kg) 72.72 BMI 33.2 Weight change and time frame Wt change noted. Wt is per pt bedscale Subjective/Other Information F/U for intakes. Pt stated his appetite is fair and mentioned that it's "off and on". Pt ate acouple bites of breakfast and nibbled on his meals yesterday. Pt stated that he had one nepro today and one yesterday. Percent of energy/protein needs met: 74%/60% Burn Absent Trauma Absent GI Symptoms None Minimum of two criteria No physical signs of malnutrition #1 Nutrition Diagnosis Inadequate oral intake As Evidenced by Signs and Symptoms Pt meeting 74%/60% energy and protein needs Diagnosis Progress(for reassessment Worsened documentation) Is patient on ventilator? No Is Patient Ambulatory and/or Out of Bed Yes REE-([facility]-ambulatory/OOB) [ 2457.494 [id number]] Kcal/Kg value to use for calculation 19 Approximate Energy Requirements Using 1938 kcal/Kg Calculation Used for Recommendations Kcal/kg Additional Notes PRO needs: 73-108g/day (0.8-1. 2 g/kg) using previous charted wt Fluid needs 1ml/kcal or per MD Nutrition Intervention Change Diet Order: Continue current Add Supplement/Snack (indicate name/kcal Nepro daily /protein ) Provides kCal: 425 Provides Protein (gm) 19 Goal #1 Continue to meet at least 75% of estimated energy and protein needs via PO intakes Anticipated Discharge Needs: Regular diet Follow-Up By: 03/09/19 Additional Comments F/U for PO and ONS intakes
[2019-03-06] MEDS: VANCOMYCIN 1,500 MG in SODIUM CHLORIDE 0.9% 500 ML 500 ML IV SCH ×2 (14:00→22:59)
[2019-03-07] MEDS: HYDROcodone/ACETAMINOPHEN 10-325MG TAB PO PRN (06:39)
--- NOTE | 2019-03-07 08:12 | Progress Note ---
Assessment and Plan Assessment and plan: Patient is a 48-year-old male with no significant past medical history according to him who presents to the ED with complaint of redness and pain in the left medial thigh. He believes this may have started as a result of having some bites he was initially seen in the ED 3 days ago and was discharged on antibiotics with no improvement of symptoms. The patient reports that instead the area has become more indurated with increased redness warmt. He requires a cane to ambulate secondary to the severe pain and this is constant. He rates the pain a 10/10 intensity. He denies any nausea vomiting or diarrhea he denies any fever although reports chills Cultures: Blood cultures 02/22/2019 pending Urine cultures 02/22/2019 pending. Thich cultures 02/23/2019 - MRSA * CT of the lower extremity shows subcutaneous edema. No clear abscess noted (without contrast however) on admission MRSA Left thigh cellulitis/abscess: s/p excisional I-n-D 02/26/2019. Per wound care nurse and surgery patient will need wound VAC Case management consult placed with respect to this. Due to nature of wound patient will continue to need pain control during wound care change. Adjustment made to pain medications. Considering the amount of deformity wonder if patient will benefit from skin grafting when healing and infectious processes while in place. Anemia chronic stable likely secondary to infectious process: after drainage of abscess on 02/23/18 (he had copious amounts of bloody discharge from left thigh abscess after drainage): monitor closely Sepsis, poa due to left thigh abscess: treat with IV abx. Per ID Will treat to complete 10 days post debridement. When ready for discharge complete course with Bactrim DS BID. Stop date: 03/08/2019 assuming no further debridements. Acute kidney injury likely secondary to vasomotor nephropathy could also have an underlying CKD; tremendously improved Cr went from 3.4-->1.7-->1.5-->1.1, consulted Nephrology, input greatly appreciated, continue to monitor closely Hypertension: low salt diet Metabolic acidosis: consult Nephrology No clinical evidence of diabetes mellitus A1c is 5.7. We will continue with glycemic control for best wound healing. DVT ppx: hold anticoagulation due to bloody discharge from left thigh abscess and drop in H/H which has stabilized but still small bloody drainage Disposition: continue inpatient care, d/c once ID give final recommendations and cleared by Dr. Hoffman. Unfortunately patient is uninsured has extensive debridement with significant open area on the left thigh will need a wound VAC and aggressive wound care management. Case management reviewing to see what assistance can be offered. 4 visits from home health has been obtained and appreciated. Awaiting final decision from hospital about wound care clinic visits. Anticipate discharge on friday morning if wound care follow-up is established - History Interval history: Patient seen and examined resting comfortably patient continues to report improvement in pain no adverse event reported overnight. Advised about plan for discharge once visits with wound clinic is established patient verbalized understanding. Hospitalist Physical - Physical exam Narrative exam: Gen: WDWN, NAD, Awake, Alert, Orientated HEENT: NCAT, EOMI, PERRL, OP Clear Neck: supple, no adenopathy, no thyromegaly, no JVD CVS/Heart: RRR, normal S1S2, pulses present bilaterally Chest/Lungs: CTA B, Symmetrical chest expansion, good air entry bilaterally GI/Abdomen: soft, NTND, good bowel sounds, no guarding or rebound /Bladder: no suprapubic tenderness, no CVA or paraspinal tenderness Extermity/Skin: anterior Left thigh dressing and wound VAC applied MSK: FROM x 4 Neuro: CN 2-12 grossly intact, no new focal deficits Psych: calm - Constitutional Vitals: Temp Pulse Resp BP Pulse Ox 98.8 F 93 H 18 113/73 94 03/07/19 04:56 03/07/19 04:56 03/07/19 04:56 03/07/19 04:56 03/07/19 04:56 Results - Labs CBC & Chem 7: 03/06/19 04:40 03/06/19 04:40 Labs: Laboratory Last Values WBC 11.1 K/mm3 (4.5-11.0) H 03/06/19 04:40 RBC 3.48 M/mm3 (3.65-5.03) L 03/06/19 04:40 Hgb 10.1 gm/dl (11.8-15.2) L 03/06/19 04:40 Hct 30.5 % (35.5-45.6) L 03/06/19 04:40 MCV 87 fl (84-94) 03/06/19 04:40 MCH 29 pg (28-32) 03/06/19 04:40 MCHC 33 % (32-34) 03/06/19 04:40 RDW 13.6 % (13.2-15.2) 03/06/19 04:40 Plt Count 508 K/mm3 (140-440) H 03/06/19 04:40 [place] % (Auto) 5.8 % (0.0-7.3) 02/27/19 07:32 Eos % (Auto) 1.1 % (0.0-4.3) 02/27/19 07:32 [place] # 1.4 K/mm3 (0.0-0.8) H 02/27/19 07:32 Eos # 0.3 K/mm3 (0.0-0.4) 02/27/19 07:32 Baso # 0.1 K/mm3 (0.0-0.1) 02/27/19 07:32 Add Manual Diff Complete 03/03/19 11:34 Total Counted 100 03/03/19 11:34 Seg Neutrophils % 85.2 % (40.0-70.0) H 02/27/19 07:32 Seg Neuts % (Manual) 75.0 % (40.0-70.0) H 03/03/19 11:34 Band Neutrophils % 0 % 03/03/19 11:34 Lymphocytes % (Manual) 18.0 % (13.4-35.0) 03/03/19 11:34 Reactive Lymphs % (Man) 0 % 03/03/19 11:34 Monocytes % (Manual) 4.0 % (0.0-7.3) 03/03/19 11:34 Eosinophils % (Manual) 2.0 % (0.0-4.3) 03/03/19 11:34 Basophils % (Manual) 0 % (0.0-1.8) 03/03/19 11:34 Metamyelocytes % 1.0 % 03/03/19 11:34 Myelocytes % 0 % 03/03/19 11:34 Promyelocytes % 0 % 03/03/19 11:34 Blast Cells % 0 % 03/03/19 11:34 Nucleated RBC % Not Reportable 03/03/19 11:34 Seg Neutrophils # 20.2 K/mm3 (1.8-7.7) H 02/27/19 07:32 Seg Neutrophils # Man 10.4 K/mm3 (1.8-7.7) H 03/03/19 11:34 Band Neutrophils # 0.0 K/mm3 03/03/19 11:34 Lymphocytes # (Manual) 2.5 K/mm3 (1.2-5.4) 03/03/19 11:34 Abs React Lymphs (Man) 0.0 K/mm3 03/03/19 11:34 Monocytes # (Manual) 0.6 K/mm3 (0.0-0.8) 03/03/19 11:34 Eosinophils # (Manual) 0.3 K/mm3 (0.0-0.4) 03/03/19 11:34 Basophils # (Manual) 0.0 K/mm3 (0.0-0.1) 03/03/19 11:34 Metamyelocytes # 0.1 K/mm3 03/03/19 11:34 Myelocytes # 0.0 K/mm3 03/03/19 11:34 Promyelocytes # 0.0 K/mm3 03/03/19 11:34 Blast Cells # 0.0 K/mm3 03/03/19 11:34 WBC Morphology Not Reportable 03/03/19 11:34 Hypersegmented Neuts Not Reportable 03/03/19 11:34 Hyposegmented Neuts Not Reportable 03/03/19 11:34 Hypogranular Neuts Not Reportable 03/03/19 11:34 Smudge Cells Not Reportable 03/03/19 11:34 Toxic Granulation Not Reportable 03/03/19 11:34 Toxic Vacuolation Not Reportable 03/03/19 11:34 Dohle Bodies Not Reportable 03/03/19 11:34 Pelger-Huet Anomaly Not Reportable 03/03/19 11:34 Rani Rods Not Reportable 03/03/19 11:34 Platelet Estimate Consistent w auto 03/03/19 11:34 Clumped Platelets Not Reportable 03/03/19 11:34 Plt Clumps, EDTA Not Reportable 03/03/19 11:34 Large Platelets Few 03/03/19 11:34 Giant Platelets Not Reportable 03/03/19 11:34 Platelet Satelliting Not Reportable 03/03/19 11:34 Plt Morphology Comment Not Reportable 03/03/19 11:34 RBC Morphology Normal 03/03/19 11:34 Dimorphic RBCs Not Reportable 03/03/19 11:34 Polychromasia Not Reportable 03/03/19 11:34 Hypochromasia Not Reportable 03/03/19 11:34 Poikilocytosis Not Reportable 03/03/19 11:34 Anisocytosis Not Reportable 03/03/19 11:34 Microcytosis Not Reportable 03/03/19 11:34 Macrocytosis Not Reportable 03/03/19 11:34 Spherocytes Not Reportable 03/03/19 11:34 Pappenheimer Bodies Not Reportable 03/03/19 11:34 Sickle Cells Not Reportable 03/03/19 11:34 Target Cells Not Reportable 03/03/19 11:34 Tear Drop Cells Not Reportable 03/03/19 11:34 Ovalocytes Not Reportable 03/03/19 11:34 Helmet Cells Not Reportable 03/03/19 11:34 [place] Bodies Not Reportable 03/03/19 11:34 [place] Rings Not Reportable 03/03/19 11:34 Chriss Cells Not Reportable 03/03/19 11:34 Bite Cells Not Reportable 03/03/19 11:34 Crenated Cell Not Reportable 03/03/19 11:34 Elliptocytes Not Reportable 03/03/19 11:34 Acanthocytes (Spur) Not Reportable 03/03/19 11:34 Rouleaux Not Reportable 03/03/19 11:34 Hemoglobin C Crystals Not Reportable 03/03/19 11:34 Schistocytes Not Reportable 03/03/19 11:34 Malaria parasites Not Reportable 03/03/19 11:34 Elmer Bodies Not Reportable 03/03/19 11:34 Hem Pathologist Commnt No 03/03/19 11:34 Sodium 140 mmol/L (137-145) 03/06/19 04:40 Potassium 4.1 mmol/L (3.6-5.0) 03/06/19 04:40 Chloride 101.1 mmol/L (98-107) 03/06/19 04:40 Carbon Dioxide 25 mmol/L (22-30) 03/06/19 04:40 Anion Gap 18 mmol/L 03/06/19 04:40 BUN 16 mg/dL (9-20) 03/06/19 04:40 Creatinine 1.1 mg/dL (0.8-1.5) 03/06/19 04:40 Estimated GFR > 60 ml/min 03/06/19 04:40 BUN/Creatinine Ratio 15 % 03/06/19 04:40 Glucose 108 mg/dL (75-100) H 03/06/19 04:40 POC Glucose 94 (70-105) 02/25/19 11:42 Hemoglobin A1c 5.7 % (4-6) 02/22/19 22:30 Lactic Acid 1.00 mmol/L (0.7-2.0) 02/22/19 14:34 Calcium 9.0 mg/dL (8.4-10.2) 03/06/19 04:40 Total Bilirubin 0.70 mg/dL (0.1-1.2) 02/22/19 12:31 AST 25 units/L (5-40) 02/22/19 12:31 ALT 22 units/L (7-56) 02/22/19 12:31 Alkaline Phosphatase 116 units/L (35-129) 02/22/19 12:31 Total Protein 8.1 g/dL (6.3-8.2) 02/22/19 12:31 Albumin 2.9 g/dL (3.9-5) L 02/22/19 12:31 Albumin/Globulin Ratio 0.6 % 02/22/19 12:31 Urine Color Yellow (Yellow) 02/22/19 Unknown Urine Turbidity Cloudy (Clear) 02/22/19 Unknown Urine pH 5.0 (5.0-7.0) 02/22/19 Unknown Ur Specific [place] 1.014 (1.003-1.030) 02/22/19 Unknown Urine Protein 100 mg/dl mg/dL (Negative) 02/22/19 Unknown Urine Glucose (UA) Neg mg/dL (Negative) 02/22/19 Unknown Urine Ketones Neg mg/dL (Negative) 02/22/19 Unknown Urine Blood Mod (Negative) 02/22/19 Unknown Urine Nitrite Neg (Negative) 02/22/19 Unknown Urine Bilirubin Neg (Negative) 02/22/19 Unknown Urine Urobilinogen 2.0 mg/dL (<2.0) 02/22/19 Unknown Ur Leukocyte Esterase Neg (Negative) 02/22/19 Unknown Urine WBC (Auto) 12.0 /HPF (0.0-6.0) H 02/22/19 Unknown Urine RBC (Auto) 3.0 /HPF (0.0-6.0) 02/22/19 Unknown U Epithel Cells (Auto) < 1.0 /HPF (0-13.0) 02/22/19 Unknown Urine Bacteria (Auto) 1+ /HPF (Negative) 02/22/19 Unknown Urine Mucus Few /HPF 02/22/19 Unknown Urine Yeast (Budding) 1+ /HPF 02/22/19 Unknown Vancomycin Trough 12.7 ug/mL (5.0-20.0) 03/03/19 11:34 Random Vancomycin 9.1 ug/mL (0-40.0) 02/25/19 04:30 Blood Type O POSITIVE 02/22/19 14:34 Antibody Screen Negative 02/22/19 14:34 Active Medications - Current Medications Current Medications: Generic Name Dose Route Start Last Admin Trade Name Freq PRN Reason Stop Dose Admin Acetaminophen 650 mg 02/22/19 14:24 Tylenol PO Q6H PRN Pain, Mild (1-3) Acetaminophen/Hydrocodone Bitart 1 each 02/24/19 17:06 03/07/19 06:39 [place] 10/325 PO 1 each Q4H PRN Administration Pain , Severe (7-10) Hydromorphone HCl 1 mg 03/02/19 13:38 03/02/19 14:35 Dilaudid IV 1 mg DAILY PRN Administration Pain , Severe (7-10) Vancomycin HCl 1,500 mg/ 530 mls @ 333.333 mls/hr 02/26/19 00:00 03/06/19 22:59 Sodium Chloride IV 03/08/19 13:36 333.333 mls/hr Q12H RICA Administration Oxycodone HCl 20 mg 03/03/19 22:00 03/06/19 21:33 Oxycontin PO Not Given Q12HR RICA Nutrition/Malnutrition Assess - Dietary Evaluation Nutrition/Malnutrition Findings: Nutrition Notes Start: 02/23/19 10:19 Freq: Status: Active Protocol: Document 03/04/19 14:50 WILFREDO (Rec: 03/04/19 15:00 [id number] [id number]) Co-Sign 03/04/19 14:50 LP Nutrition Notes Initial or Follow up Reassessment Current Diagnosis Diabetes Other Pertinent Diagnosis L medial thigh abscess Current Diet Regular Labs/Tests Reviewed Pertinent Medications Reviewed Height 5 ft 9 in Weight 102 kg [place] Body Weight (kg) 72.72 BMI 33.2 Weight change and time frame Wt change noted. Wt is per pt bedscale Subjective/Other Information F/U for intakes. Pt stated his appetite is fair and mentioned that it's "off and on". Pt ate acouple bites of breakfast and nibbled on his meals yesterday. Pt stated that he had one nepro today and one yesterday. Percent of energy/protein needs met: 74%/60% Burn Absent Trauma Absent GI Symptoms None Minimum of two criteria No physical signs of malnutrition #1 Nutrition Diagnosis Inadequate oral intake As Evidenced by Signs and Symptoms Pt meeting 74%/60% energy and protein needs Diagnosis Progress(for reassessment Worsened documentation) Is patient on ventilator? No Is Patient Ambulatory and/or Out of Bed Yes REE-([facility]-ambulatory/OOB) [ 2457.494 [id number]] Kcal/Kg value to use for calculation 19 Approximate Energy Requirements Using 1938 kcal/Kg Calculation Used for Recommendations Kcal/kg Additional Notes PRO needs: 73-108g/day (0.8-1. 2 g/kg) using previous charted wt Fluid needs 1ml/kcal or per MD Nutrition Intervention Change Diet Order: Continue current Add Supplement/Snack (indicate name/kcal Nepro daily /protein ) Provides kCal: 425 Provides Protein (gm) 19 Goal #1 Continue to meet at least 75% of estimated energy and protein needs via PO intakes Anticipated Discharge Needs: Regular diet Follow-Up By: 03/09/19 Additional Comments F/U for PO and ONS intakes
[2019-03-07] MEDS: oxyCODONE ER 20 MG TAB PO SCH ×2 (10:45→22:22)
[2019-03-07] MEDS: VANCOMYCIN 1,500 MG in SODIUM CHLORIDE 0.9% 500 ML 500 ML IV SCH (13:10)
[2019-03-08] MEDS: VANCOMYCIN 1,500 MG in SODIUM CHLORIDE 0.9% 500 ML 500 ML IV SCH ×2 (00:52→13:36)
[2019-03-08 08:41] LABS: Hematocrit 32.2 % (35.5-45.6); Hemoglobin 10.5 gm/dl (11.8-15.2); Mean Corpuscular HGB Conc 33 % (32-34); Mean Corpuscular Volume 87 fl (84-94); Platelet Count 551 K/mm3 (140-440); Red Blood Count 3.71 M/mm3 (3.65-5.03); Red Cell Distribution Width 13.5 % (13.2-15.2)
[2019-03-08 08:59] LABS: BUN/Creatinine Ratio 12; Blood Urea Nitrogen 14 mg/dL (9-20); Calcium 9.2 mg/dL (8.4-10.2); Hemolysis Index 2
[2019-03-08] MEDS: oxyCODONE ER 20 MG TAB PO SCH ×2 (10:18→22:28)
--- NOTE | 2019-03-08 15:01 | Discharge Summary ---
Providers - Providers Date of Admission: 02/22/19 21:28 Attending physician: ADRI CHRISTOPHER MD 02/22/19 14:28 Consult to Physician [CONS] Routine Comment: Consulting Provider: DERRICK ALEMAN Physician Instructions: Reason For Exam: abcess-Thigh Consult to Wound/ET Nurse [CONS] Routine Reason For Exam: wound eval 02/22/19 15:25 Consult to Physician [CONS] Routine Comment: Consulting Provider: FRANSICO RUIZ Physician Instructions: Reason For Exam: dana 02/22/19 17:19 Consult to Dietitian/Nutrition [CONS] Routine Physician Instructions: Reason For Exam: Reason for Consult: Poor oral intake 02/23/19 12:35 Consult to Physician [CONS] Routine Comment: Consulting Provider: [facility] OSBORN Physician Instructions: left thigh abcess Reason For Exam: left thigh abcess 02/26/19 15:51 Consult to Wound/ET Nurse [CONS] Routine Reason For Exam: wound eval/dressing changes and wound vac; 02/27/19 07:10 Physical Therapy Evaluation and Treat [CONS] Routine Comment: Reason For Exam: weakness 03/02/19 13:40 Consult to Case Management [CONS] Routine Services Needed at Discharge: Wound Vac Notified:: copy given to Primary care physician: [employer]OP[employer] SUPPORT SPECIALIST Hospitalization Reason for admission: Sepsis Condition: Stable Hospital course: Patient is a 48-year-old male with no significant past medical history according to him who presents to the ED with complaint of redness and pain in the left medial thigh. He believes this may have started as a result of having some bites he was initially seen in the ED 3 days ago and was discharged on antibiotics with no improvement of symptoms. The patient reports that instead the area has become more indurated with increased redness warmt. He requires a cane to ambulate secondary to the severe pain and this is constant. He rates the pain a 10/10 intensity. He denies any nausea vomiting or diarrhea he denies any fever although reports chills Cultures: Blood cultures 02/22/2019 pending Urine cultures 02/22/2019 pending. Thich cultures 02/23/2019 - MRSA * CT of the lower extremity shows subcutaneous edema. No clear abscess noted (without contrast however) on admission MRSA Left thigh cellulitis/abscess: s/p excisional I-n-D 02/26/2019. Patient was treated with empiric antibiotic coverage and is being changed to Bactrim DS twice daily to complete on the . Per ID He will be discharged with wound VAC Per wound care nurse and surgery patient will need wound VAC Case management consult placed with respect to this. Patient will also follow with the wound care clinic this has been established and will obtain his old right. Anemia chronic stable likely secondary to infectious process: after drainage of abscess on 02/23/18 (he had copious amounts of bloody discharge from left thigh abscess after drainage): monitor closely Sepsis, poa due to left thigh abscess: treat with IV abx. Per ID Will treat to complete 10 days post debridement. When ready for discharge complete course with Bactrim DS BID. Stop date: 03/08/2019 assuming no further debridements. Acute kidney injury likely secondary to vasomotor nephropathy could also have an underlying CKD; tremendously improved Cr went from 3.4-->1.7-->1.5-->1.1, consulted Nephrology, input greatly appreciated, continue to monitor closely Hypertension: low salt diet Metabolic acidosis: consult Nephrology No clinical evidence of diabetes mellitus A1c is 5.7. We will continue with glycemic control for best wound healing. Disposition: [id number] [facility] Time spent for discharge: 35-minute Core Measure Documentation - Palliative Care Palliative Care/ Comfort Measures: Not Applicable - Core Measures Any of the following diagnoses?: none Exam - Physical Exam Narrative exam: Gen: WDWN, NAD, Awake, Alert, Orientated HEENT: NCAT, EOMI, PERRL, OP Clear Neck: supple, no adenopathy, no thyromegaly, no JVD CVS/Heart: RRR, normal S1S2, pulses present bilaterally Chest/Lungs: CTA B, Symmetrical chest expansion, good air entry bilaterally GI/Abdomen: soft, NTND, good bowel sounds, no guarding or rebound /Bladder: no suprapubic tenderness, no CVA or paraspinal tenderness Extermity/Skin: anterior Left thigh dressing and wound VAC applied MSK: FROM x 4 Neuro: CN 2-12 grossly intact, no new focal deficits Psych: calm - Constitutional Vitals: Temp Pulse Resp BP Pulse Ox 98.0 F 92 H 14 119/75 94 03/08/19 11:22 03/08/19 11:22 03/08/19 11:22 03/08/19 11:22 03/08/19 11:22 Plan Activity: advance as tolerated, fall precautions Diet: low fat, diabetic Special Instructions: record daily weights, record daily BP diary, record blood sugar diary, home health RN Follow up with: PRIMARY CARE, [Primary Care Provider] - 3-5 Days [facility] OSB[facility] MD [Staff Physician] - 7 Days ALIDA MOONEY MD [Staff Physician] - 7 Days [facility] [Outside] - 03/09/19 Forms: Work/School Release Form Prescriptions: Sulfamethoxazole/Trimethoprim [Bactrim 400-80 mg Tablet] 1 each PO BID #6 tablet HYDROcodone/APAP 10-325 [[place] 10-325 mg TAB] 1 each PO Q4H PRN #14 tablet PRN Reason: Pain , Severe (7-10)
[2019-03-09] MEDS: oxyCODONE ER 20 MG TAB PO SCH (09:20)
[2019-03-09] MEDS: HYDROmorphone 1 MG/1 ML INJ IV PRN (13:33)
--- NOTE | 2019-03-09 14:08 | Progress Note ---
Assessment and Plan Assessment and plan: Patient is a 48-year-old man without known medical problems who presented to [facility] ED with worsening left thigh infection. He was initially seen here in the ED 3 days ago prior this admission and was discharged from ED on antibiotics. * CT of the lower extremity shows subcutaneous edema. No clear abscess noted (without contrast however) MRSA Left thigh cellulitis/abscess: s/p excisional I-n-D 02/26/2019 Drop in H/H after drainage of abscess on 02/23/18 (he had copious amounts of bloody discharge from left thigh abscess after drainage), now steady Sepsis, poa due to left thigh abscess: treated with IV abx Acute kidney injury likely secondary to vasomotor nephropathy could also have an underlying CKD; tremendously improved Cr went from 3.4-->1.7-->1.5, consulted Nephrology, input greatly appreciated, continue to monitor closely Hypertension: low salt diet Metabolic acidosis: consult Nephrology DVT ppx: scd, no a/c due to bloody minimal discharge Disposition: continue inpatient care, waiting on wound vac supplies, also waiting on his ride. I spoke with charge nurse. History Interval history: Patient was seen and examined. He has home estephania wound care at bedside but waiting on tubing. He said doesn't have a ride. Hospitalist Physical - Physical exam Narrative exam: Gen: WDWN, NAD, Awake, Alert, Orientated HEENT: NCAT, EOMI, PERRL, OP Clear Neck: supple, no adenopathy, no thyromegaly, no JVD CVS/Heart: RRR, normal S1S2, pulses present bilaterally Chest/Lungs: CTA B, Symmetrical chest expansion, good air entry bilaterally GI/Abdomen: soft, NTND, good bowel sounds, no guarding or rebound /Bladder: no suprapubic tenderness, no CVA or paraspinal tenderness Extermity/Skin: anterior Left thigh red, indurated, warm and tender. It is draining sero-purulent drainage at the time of this assessment. MSK: FROM x 4 Neuro: CN 2-12 grossly intact, no new focal deficits Psych: calm - Constitutional Vitals: Temp Pulse Resp BP Pulse Ox 98.2 F 89 18 114/66 97 03/09/19 11:57 03/09/19 11:57 03/09/19 11:57 03/09/19 11:57 03/09/19 11:57 Results - Labs CBC & Chem 7: 03/08/19 08:13 03/08/19 08:13 Labs: Laboratory Last Values WBC 10.5 K/mm3 (4.5-11.0) 03/08/19 08:13 RBC 3.71 M/mm3 (3.65-5.03) 03/08/19 08:13 Hgb 10.5 gm/dl (11.8-15.2) L 03/08/19 08:13 Hct 32.2 % (35.5-45.6) L 03/08/19 08:13 MCV 87 fl (84-94) 03/08/19 08:13 MCH 28 pg (28-32) 03/08/19 08:13 MCHC 33 % (32-34) 03/08/19 08:13 RDW 13.5 % (13.2-15.2) 03/08/19 08:13 Plt Count 551 K/mm3 (140-440) H 03/08/19 08:13 [place] % (Auto) 5.8 % (0.0-7.3) 02/27/19 07:32 Eos % (Auto) 1.1 % (0.0-4.3) 02/27/19 07:32 [place] # 1.4 K/mm3 (0.0-0.8) H 02/27/19 07:32 Eos # 0.3 K/mm3 (0.0-0.4) 02/27/19 07:32 Baso # 0.1 K/mm3 (0.0-0.1) 02/27/19 07:32 Add Manual Diff Complete 03/03/19 11:34 Total Counted 100 03/03/19 11:34 Seg Neutrophils % 85.2 % (40.0-70.0) H 02/27/19 07:32 Seg Neuts % (Manual) 75.0 % (40.0-70.0) H 03/03/19 11:34 Band Neutrophils % 0 % 03/03/19 11:34 Lymphocytes % (Manual) 18.0 % (13.4-35.0) 03/03/19 11:34 Reactive Lymphs % (Man) 0 % 03/03/19 11:34 Monocytes % (Manual) 4.0 % (0.0-7.3) 03/03/19 11:34 Eosinophils % (Manual) 2.0 % (0.0-4.3) 03/03/19 11:34 Basophils % (Manual) 0 % (0.0-1.8) 03/03/19 11:34 Metamyelocytes % 1.0 % 03/03/19 11:34 Myelocytes % 0 % 03/03/19 11:34 Promyelocytes % 0 % 03/03/19 11:34 Blast Cells % 0 % 03/03/19 11:34 Nucleated RBC % Not Reportable 03/03/19 11:34 Seg Neutrophils # 20.2 K/mm3 (1.8-7.7) H 02/27/19 07:32 Seg Neutrophils # Man 10.4 K/mm3 (1.8-7.7) H 03/03/19 11:34 Band Neutrophils # 0.0 K/mm3 03/03/19 11:34 Lymphocytes # (Manual) 2.5 K/mm3 (1.2-5.4) 03/03/19 11:34 Abs React Lymphs (Man) 0.0 K/mm3 03/03/19 11:34 Monocytes # (Manual) 0.6 K/mm3 (0.0-0.8) 03/03/19 11:34 Eosinophils # (Manual) 0.3 K/mm3 (0.0-0.4) 03/03/19 11:34 Basophils # (Manual) 0.0 K/mm3 (0.0-0.1) 03/03/19 11:34 Metamyelocytes # 0.1 K/mm3 03/03/19 11:34 Myelocytes # 0.0 K/mm3 03/03/19 11:34 Promyelocytes # 0.0 K/mm3 03/03/19 11:34 Blast Cells # 0.0 K/mm3 03/03/19 11:34 WBC Morphology Not Reportable 03/03/19 11:34 Hypersegmented Neuts Not Reportable 03/03/19 11:34 Hyposegmented Neuts Not Reportable 03/03/19 11:34 Hypogranular Neuts Not Reportable 03/03/19 11:34 Smudge Cells Not Reportable 03/03/19 11:34 Toxic Granulation Not Reportable 03/03/19 11:34 Toxic Vacuolation Not Reportable 03/03/19 11:34 Dohle Bodies Not Reportable 03/03/19 11:34 Pelger-Huet Anomaly Not Reportable 03/03/19 11:34 Rani Rods Not Reportable 03/03/19 11:34 Platelet Estimate Consistent w auto 03/03/19 11:34 Clumped Platelets Not Reportable 03/03/19 11:34 Plt Clumps, EDTA Not Reportable 03/03/19 11:34 Large Platelets Few 03/03/19 11:34 Giant Platelets Not Reportable 03/03/19 11:34 Platelet Satelliting Not Reportable 03/03/19 11:34 Plt Morphology Comment Not Reportable 03/03/19 11:34 RBC Morphology Normal 03/03/19 11:34 Dimorphic RBCs Not Reportable 03/03/19 11:34 Polychromasia Not Reportable 03/03/19 11:34 Hypochromasia Not Reportable 03/03/19 11:34 Poikilocytosis Not Reportable 03/03/19 11:34 Anisocytosis Not Reportable 03/03/19 11:34 Microcytosis Not Reportable 03/03/19 11:34 Macrocytosis Not Reportable 03/03/19 11:34 Spherocytes Not Reportable 03/03/19 11:34 Pappenheimer Bodies Not Reportable 03/03/19 11:34 Sickle Cells Not Reportable 03/03/19 11:34 Target Cells Not Reportable 03/03/19 11:34 Tear Drop Cells Not Reportable 03/03/19 11:34 Ovalocytes Not Reportable 03/03/19 11:34 Helmet Cells Not Reportable 03/03/19 11:34 [place] Bodies Not Reportable 03/03/19 11:34 [place] Rings Not Reportable 03/03/19 11:34 Chriss Cells Not Reportable 03/03/19 11:34 Bite Cells Not Reportable 03/03/19 11:34 Crenated Cell Not Reportable 03/03/19 11:34 Elliptocytes Not Reportable 03/03/19 11:34 Acanthocytes (Spur) Not Reportable 03/03/19 11:34 Rouleaux Not Reportable 03/03/19 11:34 Hemoglobin C Crystals Not Reportable 03/03/19 11:34 Schistocytes Not Reportable 03/03/19 11:34 Malaria parasites Not Reportable 03/03/19 11:34 [place] Bodies Not Reportable 03/03/19 11:34 Hem Pathologist Commnt No 03/03/19 11:34 Sodium 137 mmol/L (137-145) 03/08/19 08:13 Potassium 4.7 mmol/L (3.6-5.0) 03/08/19 08:13 Chloride 98.8 mmol/L (98-107) 03/08/19 08:13 Carbon Dioxide 25 mmol/L (22-30) 03/08/19 08:13 Anion Gap 18 mmol/L 03/08/19 08:13 BUN 14 mg/dL (9-20) 03/08/19 08:13 Creatinine 1.2 mg/dL (0.8-1.5) 03/08/19 08:13 Estimated GFR > 60 ml/min 03/08/19 08:13 BUN/Creatinine Ratio 12 % 03/08/19 08:13 Glucose 108 mg/dL (75-100) H 03/08/19 08:13 POC Glucose 94 (70-105) 02/25/19 11:42 Hemoglobin A1c 5.7 % (4-6) 02/22/19 22:30 Lactic Acid 1.00 mmol/L (0.7-2.0) 02/22/19 14:34 Calcium 9.2 mg/dL (8.4-10.2) 03/08/19 08:13 Total Bilirubin 0.70 mg/dL (0.1-1.2) 02/22/19 12:31 AST 25 units/L (5-40) 02/22/19 12:31 ALT 22 units/L (7-56) 02/22/19 12:31 Alkaline Phosphatase 116 units/L (35-129) 02/22/19 12:31 Total Protein 8.1 g/dL (6.3-8.2) 02/22/19 12:31 Albumin 2.9 g/dL (3.9-5) L 02/22/19 12:31 Albumin/Globulin Ratio 0.6 % 02/22/19 12:31 Urine Color Yellow (Yellow) 02/22/19 Unknown Urine Turbidity Cloudy (Clear) 02/22/19 Unknown Urine pH 5.0 (5.0-7.0) 02/22/19 Unknown Ur Specific [place] 1.014 (1.003-1.030) 02/22/19 Unknown Urine Protein 100 mg/dl mg/dL (Negative) 02/22/19 Unknown Urine Glucose (UA) Neg mg/dL (Negative) 02/22/19 Unknown Urine Ketones Neg mg/dL (Negative) 02/22/19 Unknown Urine Blood Mod (Negative) 02/22/19 Unknown Urine Nitrite Neg (Negative) 02/22/19 Unknown Urine Bilirubin Neg (Negative) 02/22/19 Unknown Urine Urobilinogen 2.0 mg/dL (<2.0) 02/22/19 Unknown Ur Leukocyte Esterase Neg (Negative) 02/22/19 Unknown Urine WBC (Auto) 12.0 /HPF (0.0-6.0) H 02/22/19 Unknown Urine RBC (Auto) 3.0 /HPF (0.0-6.0) 02/22/19 Unknown U Epithel Cells (Auto) < 1.0 /HPF (0-13.0) 02/22/19 Unknown Urine Bacteria (Auto) 1+ /HPF (Negative) 02/22/19 Unknown Urine Mucus Few /HPF 02/22/19 Unknown Urine Yeast (Budding) 1+ /HPF 02/22/19 Unknown Vancomycin Trough 12.7 ug/mL (5.0-20.0) 03/03/19 11:34 Random Vancomycin 9.1 ug/mL (0-40.0) 02/25/19 04:30 Blood Type O POSITIVE 02/22/19 14:34 Antibody Screen Negative 02/22/19 14:34 Active Medications - Current Medications Current Medications: Generic Name Dose Route Start Last Admin Trade Name Freq PRN Reason Stop Dose Admin Acetaminophen 650 mg 02/22/19 14:24 Tylenol PO Q6H PRN Pain, Mild (1-3) Acetaminophen/Hydrocodone Bitart 1 each 02/24/19 17:06 03/07/19 06:39 [place] 10/325 PO 1 each Q4H PRN Administration Pain , Severe (7-10) Hydromorphone HCl 1 mg 03/02/19 13:38 03/09/19 13:33 Dilaudid IV 1 mg DAILY PRN Administration Pain , Severe (7-10) [facility] Oxycodone HCl 20 mg 03/03/19 22:00 03/09/19 09:20 Oxycontin PO 20 mg Q12HR RICA Administration Nutrition/Malnutrition Assess - Dietary Evaluation Nutrition/Malnutrition Findings: Nutrition Notes Start: 02/23/19 10:19 Freq: Status: Active Protocol: Document 03/09/19 11:21 MK (Rec: 03/09/19 11:29 MK [id number]) Co-Sign 03/09/19 11:21 LP Nutrition Notes Initial or Follow up Reassessment Current Diagnosis Sepsis Other Pertinent Diagnosis L medial thigh abscess Current Diet Regular Labs/Tests Reviewed Pertinent Medications Reviewed Height 5 ft 9 in Weight 100 kg [place] Body Weight (kg) 72.72 BMI 32.5 Weight change and time frame Wt change noted Subjective/Other Information Pt to be discharged today. Pt states eating fine and consuming 100% of ONS. Percent of energy/protein needs met: 100%/100% Burn Absent Trauma Absent GI Symptoms None Current % PO Good (75-100%) Minimum of two criteria No physical signs of malnutrition #1 Nutrition Diagnosis Inadequate oral intake As Evidenced by Signs and Symptoms Pt consuming 100% of protein and energy needs Diagnosis Progress(for reassessment Improved documentation) Is patient on ventilator? No Is Patient Ambulatory and/or Out of Bed Yes REE-([place]-St. Jeor-ambulatory/OOB) [ 2431.494 NUTR.[id number]] Kcal/Kg value to use for calculation 19 Approximate Energy Requirements Using 1900 kcal/Kg Calculation Used for Recommendations Kcal/kg Additional Notes PRO needs: 73-108g/day (0.8-1. 2 g/kg) using previous charted wt Fluid needs 1ml/kcal or per MD Nutrition Intervention Change Diet Order: Continue current Add Supplement/Snack (indicate name/kcal Nepro daily /protein ) Provides kCal: 425 Provides Protein (gm) 19 Goal #1 Continue to meet at least 75% of estimated energy and protein needs via PO intakes Anticipated Discharge Needs: Regular Follow-Up By: 03/11/19 Additional Comments FU for stable intakes
[2019-03-09 18:33] VITALS: BP 110/71
--- NOTE | 2019-03-10 07:42 | Event Note ---
Date: 03/10/19 See Discharge Summary on 03/08/19 and 03/09/19 progress note Patient was discharge on 03/09/2019 Patient is a 48-year-old man without known medical problems who presented to [facility] ED with worsening left thigh infection. He was initially seen here in the ED 3 days ago prior this admission and was discharged from ED on antibiotics. * CT of the lower extremity shows subcutaneous edema. No clear abscess noted (without contrast however) Discharge Diagnoses: MRSA Left thigh cellulitis/abscess: s/p excisional I-n-D 02/26/2019 Drop in H/H after drainage of abscess on 02/23/18 (he had copious amounts of bloody discharge from left thigh abscess after drainage), now steady Sepsis, poa due to left thigh abscess: treated with IV abx Acute kidney injury likely secondary to vasomotor nephropathy could also have an underlying CKD; tremendously improved Cr went from 3.4-->1.7-->1.5, consulted Nephrology, input greatly appreciated, continue to monitor closely Hypertension: low salt diet Metabolic acidosis: consult Nephrology DVT ppx: scd, no a/c due to bloody minimal discharge time of discharge 32 minutes
== END 2019-03-09 20:00 | disposition home health service (06) | DRG 853 ==
LOC: ED 09:10 → 3A 14:19 → OBSVTOIN 21:28
PROVIDERS: ADMIT Internal Medicine; ATTEND Internal Medicine
PROC: 0J9M0ZZ Drainage of Left Upper Leg Subcutaneous Tissue and Fascia, Open Approach (ICD-10-PCS; principal; 2019-02-26)
DX: A41.9 Sepsis, unspecified organism (principal); N17.0 Acute kidney failure with tubular necrosis; R65.21 Severe sepsis with septic shock; L03.116 Cellulitis of left lower limb; L02.416 Cutaneous abscess of left lower limb; A49.02 Methicillin resistant Staphylococcus aureus infection, unspecified site; E11.22 Type 2 diabetes mellitus with diabetic chronic kidney disease; E11.9 Type 2 diabetes mellitus without complications; I12.9 Hypertensive chronic kidney disease with stage 1 through stage 4 chronic kidney disease, or unspecified chronic kidney disease; N18.9 Chronic kidney disease, unspecified; D63.8 Anemia in other chronic diseases classified elsewhere
CPT/HCPCS: 36415; 76770; 80048; 80053; 80202; 81001; 82140; 82962; 83036; 85007; 85025; 85027; 86850; 86900; 86901; 87040; 87075; 87076; 87086; 87116; 87186; 93970; G0378; J0692; J0696; J1170; J2250; J2270; J2405; J2704; J3370; J7030; J7040; J7050

== ENCOUNTER 2019-03-13 18:22 | Emergency (ER) | payer SELFPAY ==
--- NOTE | 2019-03-13 19:32 | Emergency Department Report ---
- General Chief Complaint: Wound/Laceration Stated Complaint: WOUND CARE Time Seen by Provider: 03/13/19 18:53 Source: patient Mode of arrival: Stretcher Limitations: No Limitations - History of Present Illness Initial Comments: Patient is a 48-year-old [place] male who has a wound to the left proximal anterior thigh status post large abscess. The patient currently has a wound VAC and his wound VAC nurse with changing the dressing stated that the wound would not stop bleeding a centimeter for evaluation. Wound is dressed with wet-to-dry gauze at the time of his arrival. Patient denies any fevers chills nausea vomiting. States he has a 3 out of 10 pain in the area of the wound which is at his baseline. - Related Data Previous Rx's Medication Instructions Recorded Last Taken Type HYDROcodone/APAP 10-325 [[place] 1 each PO Q4H PRN #14 tablet 03/08/19 Unknown Rx 10-325 mg TAB] Sulfamethoxazole/Trimethoprim 1 each PO BID #6 tablet 03/08/19 Unknown Rx [Bactrim 400-80 mg Tablet] Allergies Allergy/AdvReac Type Severity Reaction Status Date / Time No Known Allergies Allergy Unverified 02/19/19 07:26 ED Review of Systems ROS: Stated complaint: WOUND CARE Other details as noted in HPI Comment: All other systems reviewed and negative ED Past Medical Hx - Past Medical History Previous Medical History?: Yes Hx Congestive Heart Failure: No Hx Diabetes: No Hx Renal Disease: Yes (Acute kidney Injury, resolving) Hx Asthma: No Hx COPD: No Hx HIV: No - Surgical History Past Surgical History?: Yes Additional Surgical History: left inner thigh - Social History Smoking Status: Never Smoker Substance Use Type: None - Medications Home Medications: Home Medications Medication Instructions Recorded Confirmed Last Taken Type HYDROcodone/APAP 10-325 [[place] 1 each PO Q4H PRN #14 tablet 03/08/19 Unknown Rx 10-325 mg TAB] Sulfamethoxazole/Trimethoprim 1 each PO BID #6 tablet 03/08/19 Unknown Rx [Bactrim 400-80 mg Tablet] ED Physical Exam - General Limitations: No Limitations - Extremities Exam Extremities exam: Present: full ROM, other (patient with a large open wound with good granulation tissue and some small punctate areas of bleeding in the left anterior proximal thigh. This does not include the scrotum. The areas of bleeding after less than 1 minute of removing the patient's gauze have stopped bleeding.) ED Course Vital Signs 03/13/19 19:02 Temperature 97.9 F Pulse Rate 103 H Respiratory 16 Rate Blood Pressure 128/86 [Left] O2 Sat by Pulse 96 Oximetry ED Medical Decision Making - Medical Decision Making Patient's wounds were redressed with Xeroform gauze instead of wet to dry gauze. Patient will have follow-up with his wound care clinic. Critical care attestation.: If time is entered above; I have spent that time in minutes in the direct care of this critically ill patient, excluding procedure time. ED Disposition Clinical Impression: Encounter for wound re-check Disposition: MED SCREENING EXAM-LEFT Is pt being admited?: No Does the pt Need Aspirin: No Condition: Stable Referrals: PRIMARY CARE, [Primary Care Provider] - 3-5 Days Time of Disposition: 19:32
[2019-03-13 20:09] VITALS: BP 129/84
== END 2019-03-13 20:08 | disposition left against medical advice (07) ==
LOC: ED 18:22
DX: M79.652 Pain in left thigh (principal); Z53.21 Procedure and treatment not carried out due to patient leaving prior to being seen by health care provider

== ENCOUNTER 2019-03-16 12:50 | Outpatient (CLI) | payer OTHER | END 2019-03-16 12:51 | disposition home or self-care (01) | LOC: WOUND 12:50 | PROVIDERS: ATTEND Surgery | DX: T81.89XA Other complications of procedures, not elsewhere classified, initial encounter (principal); Y92.89 Other specified places as the place of occurrence of the external cause; Y83.8 Other surgical procedures as the cause of abnormal reaction of the patient, or of later complication, without mention of misadventure at the time of the procedure | CPT/HCPCS: 97606; G0463; 99214 ==

== ENCOUNTER 2019-03-19 14:00 | Outpatient (CLI) | payer OTHER | END 2019-03-19 14:01 | disposition home or self-care (01) | LOC: WOUND 14:00 | PROVIDERS: ATTEND Surgery | DX: T81.89XA Other complications of procedures, not elsewhere classified, initial encounter (principal); S71.102A Unspecified open wound, left thigh, initial encounter; X58.XXXA Exposure to other specified factors, initial encounter; Y93.89 Activity, other specified; Y99.8 Other external cause status; Y83.8 Other surgical procedures as the cause of abnormal reaction of the patient, or of later complication, without mention of misadventure at the time of the procedure; Y92.89 Other specified places as the place of occurrence of the external cause | CPT/HCPCS: 97606 ==

== ENCOUNTER 2019-03-23 08:41 | Outpatient (CLI) | payer OTHER ==
[2019-03-23] MEDS ORDERED: LIDOCAINE (4%) 40 MG/ML TOPICAL SOLN 50 ML BOTTLE TP ONE (09:30)
[2019-03-23] MEDS ORDERED: SILVER NITRATE APPLICATOR 1 EA TP ONE (10:00)
== END 2019-03-23 08:42 | disposition home or self-care (01) ==
LOC: WOUND 08:41
PROVIDERS: ATTEND Surgery
DX: T81.89XD Other complications of procedures, not elsewhere classified, subsequent encounter (principal); Y83.8 Other surgical procedures as the cause of abnormal reaction of the patient, or of later complication, without mention of misadventure at the time of the procedure
CPT/HCPCS: 97606

== ENCOUNTER 2019-03-26 13:55 | Outpatient (CLI) | payer OTHER | END 2019-03-26 13:56 | disposition home or self-care (01) | LOC: WOUND 13:55 | PROVIDERS: ATTEND Surgery | DX: T81.89XD Other complications of procedures, not elsewhere classified, subsequent encounter (principal); Y83.8 Other surgical procedures as the cause of abnormal reaction of the patient, or of later complication, without mention of misadventure at the time of the procedure | CPT/HCPCS: 97606 ==

== ENCOUNTER 2019-03-30 08:29 | Outpatient (CLI) | payer OTHER ==
[2019-03-30] MEDS ORDERED: SILVER NITRATE APPLICATOR 1 EA TP ONE (09:30)
[2019-03-30] MEDS ORDERED: LIDOCAINE (4%) 40 MG/ML TOPICAL SOLN 50 ML BOTTLE TP ONE (09:30)
== END 2019-03-30 08:30 | disposition home or self-care (01) ==
LOC: WOUND 08:29
PROVIDERS: ATTEND Surgery
DX: T81.89XD Other complications of procedures, not elsewhere classified, subsequent encounter (principal); Y83.8 Other surgical procedures as the cause of abnormal reaction of the patient, or of later complication, without mention of misadventure at the time of the procedure
CPT/HCPCS: 97606

== ENCOUNTER 2019-03-30 10:21 | Emergency (ER) | payer SELFPAY ==
--- NOTE | 2019-03-30 12:24 | Vascular Lab Report ---
{null, DUPLEX DOPPLER LOWER EXTREMITY VEINS, LEFT INDICATION: left leg/foot swelling. TECHNIQUE: Duplex doppler imaging was performed through the veins of the left lower extremity using venous compr ession and other maneuvers. COMPARISON: None available. FINDINGS: Common Femoral vein: Negative. Superficial Femoral vein: Occlusive DVT in the distal portions. Popliteal vein: Occlusive DVT. Calf veins: Occlusive DVT in the posterior tibial vein and peroneal vein. Additional findings: None. IMPRESSION: 1. Deep venous thrombosis in the left lower extremity, as above. The physiotherapy aide reported these findings to Joby Pitt at 11:58 PM Central time. Signer Name: Lincoln Bass MD Signed: 03/30/2019 12:19 PM Workstation Name: [id number] }
[2019-03-30] MEDS ORDERED: APIXABAN 5 MG TAB PO STA (14:42)
--- NOTE | 2019-03-30 14:49 | Emergency Department Report ---
{null, ED General Adult HPI - General Chief complaint: Extremity Problem,Nontraumatic Stated complaint: SWOLLEN LT LEG Time Seen by Provider: 03/30/19 14:21 Source: patient Mode of arrival: Ambulatory Limitations: No Limitations - History of Present Illness Initial comments: 48-year-old male with a recent incision and drainage in the operating room for a left lower extremity abscess with cellulitis presents with swelling of the left lower extremity. Patient states that he has had a wound VAC and this has been present for the past 5 weeks. Patient saw his surgeon Dr. Hoffman today and had the wound VAC removed. Patient was told that his wound was improving. Patient however has a component of left lower extremity swelling primary in the calf region and was sent to the emergency department to rule out a DVT. Patient states he has no prior history of DVT. Patient denies any history of chest pain or shortness of breath. Patient denies any discoloration to his lower extremity. Patient denies any numbness or tingling. - Related Data Previous Rx's Medication Instructions Recorded Last Taken Type HYDROcodone/APAP 10-325 [[place] 1 each PO Q4H PRN #14 tablet 03/08/19 Unknown Rx 10-325 mg TAB] Sulfamethoxazole/Trimethoprim 1 each PO BID #6 tablet 03/08/19 Unknown Rx [Bactrim 400-80 mg Tablet] Apixaban [Eliquis] 5 mg PO BID 21 Days #42 tablet 03/30/19 Unknown Rx Apixaban [Eliquis] 10 mg PO BID 7 Days #14 tablet 03/30/19 Unknown Rx Allergies Allergy/AdvReac Type Severity Reaction Status Date / Time No Known Allergies Allergy Unverified 02/19/19 07:26 ED Review of Systems ROS: Stated complaint: SWOLLEN LT LEG Other details as noted in HPI Constitutional: denies: chills, fever Eyes: denies: eye pain, eye discharge, vision change ENT: denies: ear pain, throat pain Respiratory: denies: cough, shortness of breath, wheezing Cardiovascular: denies: chest pain, palpitations Endocrine: no symptoms reported Gastrointestinal: denies: abdominal pain, nausea, diarrhea Genitourinary: denies: urgency, dysuria Musculoskeletal: arthralgia Skin: denies: rash, lesions Neurological: denies: headache, weakness, paresthesias Psychiatric: denies: anxiety, depression Hematological/Lymphatic: denies: easy bleeding, easy bruising ED Past Medical Hx - Past Medical History Hx Congestive Heart Failure: No Hx Diabetes: No Hx Renal Disease: Yes (Acute kidney Injury, resolving) Hx Asthma: No Hx COPD: No Hx HIV: No - Surgical History Additional Surgical History: left inner thigh - Social History Smoking Status: Never Smoker Substance Use Type: None - Medications Home Medications: Home Medications Medication Instructions Recorded Confirmed Last Taken Type HYDROcodone/APAP 10-325 [[place] 1 each PO Q4H PRN #14 tablet 03/08/19 Unknown Rx 10-325 mg TAB] Sulfamethoxazole/Trimethoprim 1 each PO BID #6 tablet 03/08/19 Unknown Rx [Bactrim 400-80 mg Tablet] Apixaban [Eliquis] 5 mg PO BID 21 Days #42 tablet 03/30/19 Unknown Rx Apixaban [Eliquis] 10 mg PO BID 7 Days #14 tablet 03/30/19 Unknown Rx ED Physical Exam - General Limitations: No Limitations General appearance: alert, in no apparent distress - Head Head exam: Present: atraumatic, normocephalic - Eye Eye exam: Present: normal appearance - ENT ENT exam: Present: mucous membranes moist - Neck Neck exam: Present: normal inspection - Respiratory Respiratory exam: Present: normal lung sounds bilaterally. Absent: respiratory distress - Cardiovascular Cardiovascular Exam: Present: regular rate, normal rhythm. Absent: systolic murmur, diastolic murmur, rubs, gallop - GI/Abdominal GI/Abdominal exam: Present: soft, normal bowel sounds - Rectal Rectal exam: Present: deferred - Extremities Exam Extremities exam: Present: normal inspection, other (patient has dressing applied by his surgeon to left thigh region with no erythema; swelling noted to left calf region with no erythema) - Back Exam Back exam: Present: normal inspection - Neurological Exam Neurological exam: Present: alert, oriented X3 - Psychiatric Psychiatric exam: Present: normal affect, normal mood - Skin Skin exam: Present: warm, dry, intact, normal color. Absent: rash ED Course Vital Signs 03/30/19 03/30/19 10:30 10:56 Temperature 97.9 F 97.9 F Pulse Rate 83 88 Respiratory 18 17 Rate Blood Pressure 147/92 147/92 O2 Sat by Pulse 95 96 Oximetry ED Medical Decision Making - Medical Decision Making Patient noted to have a DVT in the left lower extremity. Patient is without the complaint of chest pain or shortness of breath. Patient's case discussed with Dr. Hoffman who states to refer to the hospital service. Case discussed with hospital service and states that patient can be treated as outpatient which patient is agreeable with. Patient given a prescription for Eliquis for the first month and given a dose of Eliquis while in emergency department as well. - Differential Diagnosis DVT; Ruptured Bakers Cyst; Critical care attestation.: If time is entered above; I have spent that time in minutes in the direct care of this critically ill patient, excluding procedure time. ED Disposition Clinical Impression: DVT (deep venous thrombosis) Disposition: TO HOME OR SELFCARE Is pt being admited?: No Does the pt Need Aspirin: No Condition: Stable Prescriptions: Apixaban [Eliquis] 10 mg PO BID 7 Days #14 tablet Apixaban [Eliquis] 5 mg PO BID 21 Days #42 tablet Referrals: PRIMARY CAREMD [Primary Care Provider] - 3-5 Days SEPIDEH SCHMID MD [Staff Physician] - 3-5 Days MC HOFFMAN MD [Staff Physician] - 3-5 Days Time of Disposition: 14:49 Print Language: [id number] }
[2019-03-30 14:55] VITALS: BP 134/86
== END 2019-03-30 15:10 | disposition home or self-care (01) ==
LOC: ED 10:21
DX: I82.402 Acute embolism and thrombosis of unspecified deep veins of left lower extremity (principal); N17.9 Acute kidney failure, unspecified; Z98.890 Other specified postprocedural states; Z79.899 Other long term (current) drug therapy
CPT/HCPCS: 99283

== ENCOUNTER 2019-04-06 07:56 | Outpatient (CLI) | payer SELFPAY ==
[2019-04-06] MEDS ORDERED: SILVER NITRATE APPLICATOR 1 EA TP ONE (09:00)
[2019-04-06] MEDS ORDERED: LIDOCAINE (4%) 40 MG/ML TOPICAL SOLN 50 ML BOTTLE TP ONE (09:00)
== END 2019-04-06 07:57 | disposition home or self-care (01) ==
LOC: WOUND 07:56
PROVIDERS: ATTEND Surgery
DX: T81.89XD Other complications of procedures, not elsewhere classified, subsequent encounter (principal); Z86.718 Personal history of other venous thrombosis and embolism; Y83.8 Other surgical procedures as the cause of abnormal reaction of the patient, or of later complication, without mention of misadventure at the time of the procedure
CPT/HCPCS: 17250; 97606

== ENCOUNTER 2019-04-13 07:55 | Outpatient (CLI) | payer SELFPAY ==
[2019-04-13] MEDS ORDERED: SILVER NITRATE APPLICATOR 1 EA TP ONE (09:00)
[2019-04-13] MEDS ORDERED: LIDOCAINE (4%) 40 MG/ML TOPICAL SOLN 50 ML BOTTLE TP ONE (09:00)
== END 2019-04-13 07:56 | disposition home or self-care (01) ==
LOC: WOUND 07:55
PROVIDERS: ATTEND Surgery
DX: T81.89XD Other complications of procedures, not elsewhere classified, subsequent encounter (principal); Z86.718 Personal history of other venous thrombosis and embolism; Y83.8 Other surgical procedures as the cause of abnormal reaction of the patient, or of later complication, without mention of misadventure at the time of the procedure
CPT/HCPCS: 17250

== ENCOUNTER 2019-04-27 07:57 | Outpatient (CLI) | payer SELFPAY ==
[2019-04-27] MEDS ORDERED: LIDOCAINE (4%) 40 MG/ML TOPICAL SOLN 50 ML BOTTLE TP ONE (08:30)
[2019-04-27] MEDS ORDERED: SILVER NITRATE APPLICATOR 1 EA TP ONE (09:30)
== END 2019-04-27 07:58 | disposition home or self-care (01) ==
LOC: WOUND 07:57
PROVIDERS: ATTEND Surgery
DX: T81.89XD Other complications of procedures, not elsewhere classified, subsequent encounter (principal); Z86.718 Personal history of other venous thrombosis and embolism; Y83.8 Other surgical procedures as the cause of abnormal reaction of the patient, or of later complication, without mention of misadventure at the time of the procedure
CPT/HCPCS: 17250

== ENCOUNTER 2019-08-04 19:36 | Emergency (ER) | payer SELFPAY ==
[2019-08-04 20:16] VITALS: BP 128/72
--- NOTE | 2019-08-04 20:25 | Emergency Department Report ---
Chief Complaint: Urogenital-Male Stated Complaint: UTI Time Seen by Provider: 08/04/19 20:23 - HPI History of Present Illness: HERE FOR STD TESTING NO TESTICULAR PAIN - ROS Review of Systems: PENILE DC - Exam Vital Signs: Vital Signs 08/04/19 20:15 Temperature 98.8 F Pulse Rate 81 Respiratory 14 Rate Blood Pressure 128/72 O2 Sat by Pulse 96 Oximetry Physical Exam: A/O ABD SNT NAD VSS NO FEVER NO CHILLS NEURO INTACT MSE screening note: Focused history and physical exam performed. Due to findings the following was ordered: Patient discussed with doctor:: PORSCHE BROWN ED Disposition for MSE Clinical Impression: Concern about STD in male without diagnosis Disposition: Z- MED SCREENING EXAM-LEFT Is pt being admited?: No Does the pt Need Aspirin: No Condition: Stable Additional Instructions: [facility] [address] [place] [address] [phone] Referrals: VERONA INGRAM MD [Staff Physician] - 3-5 Days Time of Disposition: 20:25
[2019-08-05 12:37] LABS: Bilirubin,Urine NEG (Negative); Blood,Urine NEG (Negative); Color,Urine Yellow (Yellow); Mucus,Urine 1+ /HPF; Urobilinogen,Urine < 2.0 mg/dL (<2.0)
== END 2019-08-04 20:43 | disposition left against medical advice (07) ==
LOC: ED 19:36
DX: N39.0 Urinary tract infection, site not specified (principal); Z53.21 Procedure and treatment not carried out due to patient leaving prior to being seen by health care provider